=== PATIENT | female | born 1940 | race American Indian/Alaskan Native ===

== ENCOUNTER 2017-11-21 09:10 | Emergency (ER) | payer OTHER ==
--- NOTE | 2017-11-21 09:31 | EDM.PDOC ---
ED HPI GENERAL MEDICAL PROBLEM - General Chief Complaint: Chest Pain Stated Complaint: CHEST PAINS Time Seen by Provider: 11/21/17 09:31 Source of Information: Reports: Patient History Limitations: Reports: No Limitations - History of Present Illness INITIAL COMMENTS - FREE TEXT/NARRATIVE: 77-year-old female attends the ED after she made her way to the hospitalist morning for some radiology evaluations. She calls them kidney tests. Some clear what she was scheduled to have however she was supposed to arrive with a very full bladder. She's been taking a great deal water en route to the hospital. At present she has a very full bladder. Her chief complaint is central chest pain rating to to her mid back. Anus rated as 5 or 6 out of 10. It is constant. Burping and belching does not seem to relieve the discomfort. She doesn't usually have a gastroesophageal reflux disease and does not use Tums or Rolaids. She has no known history of coronary disease. She used to smoke but quit 30 years ago. She has not had a pulmonary fibrosis is on oxygen 1 L/m at nighttime and during the day if needed. Denies cough or sputum production or recent illness. No associated fever or chills. Anus appears to be spastic and is made worse by deep breathing. Of note the patient has not eaten since yesterday 1800 hrs. Onset: Today Onset Date: 11/21/17 Onset Time: 08:30 Duration: Minutes: Location: Reports: Chest (Central chest starting in the pit of her stomach and rating up into the chest to the manubrial sternal notch and similarly in her mid back. This suggests possibility of esophageal pain. However burping and belching is not relieving the discomfort. She states the pain is constant but has to have a strong sharp stabbing component at times as well.) Quality: Reports: Ache, Sharp, Stabbing Severity: Moderate Improves with: Reports: None (5 or 6 out of 10.) Worsens with: Reports: None Context: Reports: Other (Came on spontaneously when she reached the hospital this morning and was registering for). Denies: Activity, Exercise, Lifting, Sick Contact, Trauma Associated Symptoms: Reports: No Other Symptoms ( radiology examination.), Chest Pain. Denies: Confusion, Cough, cough w sputum, Diaphoresis, Fever/Chills , Headaches, Loss of Appetite, Malaise (See history of present illness), Nausea/ Vomiting, Rash, Seizure, Shortness of Breath, Syncope Treatments [employer]FORMAT[employer] SPECIALIST: Reports: Other (see below) Chest Pain Score (Numeric/FACES): 10 - Related Data Allergies Allergy/AdvReac Type Severity Reaction Status Date / Time codeine Allergy Rash Verified 11/21/17 10:10 NSAIDS (Non-Steroidal Allergy Rash Verified 11/21/17 10:10 Anti-Inflamma Home Meds: Home Meds Acetaminophen [Tylenol Extra Strength] 500 mg PO Q6HR PRN 11/21/17 [History] Albuterol [Ventolin HFA] 8 gm IH ASDIRECTED PRN 11/21/17 [History] Carvedilol 3.125 mg PO BID 11/21/17 [History] Cholecalciferol (Vitamin D3) [Vitamin D] 2 tab PO DAILY 11/21/17 [History] Fish Oil/[place]-3 Fatty Acids [Fish Oil] 500 mg PO DAILY 11/21/17 [History] Losartan [Cozaar] 100 mg PO DAILY 11/21/17 [History] Sildenafil Citrate [Sildenafil] 20 mg PO TID 11/21/17 [History] Tolterodine [Detrol LA 24 Hr] 4 mg PO DAILY 11/21/17 [History] Past Medical History Respiratory History: Reports: Pulmonary Fibrosis (Uses oxygen 1 L/m at nighttime and sometimes during the day as needed.) Social & Family History - Living Situation & Occupation Living situation: Reports: Single Occupation: Retired Social History Comment: Resides in [place]. ED [facility] GENERAL - Review of Systems Review Of Systems: See Below Constitutional: Reports: Fatigue, Decreased Appetite. Denies: Fever, Chills, Malaise, Weakness, Weight Loss HEENT: Reports: Glasses Respiratory: Reports: Shortness of Breath, Other (Has known pulmonary fibrosis.) . Denies: Wheezing, Pleuritic Chest Pain, Cough, Sputum, Hemoptysis Cardiovascular: Reports: Chest Pain (Central chest pain rating to his back at this time.), Blood Pressure Problem, Dyspnea on Exertion (Chronically). Denies : Claudication, Edema, Lightheadedness, Orthopnea (Has hypertension.) Endocrine: Reports: No Symptoms GI/Abdominal: Denies: Abdominal Pain, Anorexia, Black Stool, Bloody Stool, Constipation, Diarrhea, Difficulty Swallowing, Distension, Flatus, Hematemesis, Hematochezia, Melena, Stool Incontinence, Vomiting, Other : Reports: Frequency, Other (Fairly being investigated for renal problems by Dr. Rudd supervisory clerk. I believe she is probably here for examination of renal arteries.) Musculoskeletal: Reports: Back Pain (Pain in her anterior chest range through to her mid back.) Skin: Reports: No Symptoms Neurological: Reports: No Symptoms Psychiatric: Reports: No Symptoms Hematologic/Lymphatic: Reports: No Symptoms Immunologic: Reports: No Symptoms ED EXAM, GENERAL - Physical Exam Exam: See Below Exam Limited By: No Limitations General Appearance: Alert, WD/WN, Moderate Distress (She appears to be in genuine discomfort. Deep breathing seems to make the pain much worse.) Eye Exam: Bilateral Eye: Normal Inspection Throat/Mouth: Normal Inspection, Normal Lips, Normal Oropharynx Head: Atraumatic, Normocephalic Neck: Normal Inspection, Supple, Non-Tender, Full Range of Motion. No: Lymphadenopathy (L), Lymphadenopathy (R) Respiratory/Chest: No Respiratory Distress, No Accessory Muscle Use, Rales (Is coarse rales throughout both lower lobes compatible with pulmonary fibrosis however I could not rule out associated congestive heart failure.), Splinting ( Blunting respirations at times.). No: Normal Breath Sounds, Respiratory Distress Cardiovascular: Normal Peripheral Pulses, Regular Rate, Rhythm, No Edema, No Murmur GI/Abdominal: Normal Bowel Sounds, Soft, Non-Tender, No Organomegaly, Rebound, Other (Very tender in the pit of her stomach i.e. epigastrium and seems to radiate up into her chest suspicious for hiatal hernia. Urinary bladder is easily palpable in her lower abdomen is full.) Back Exam: Other Extremities: Normal Inspection (Mild kyphosis thoracic spine.), Normal Range of Motion, Non-Tender, No Pedal Edema Psychiatric: Normal Affect, Anxious Skin Exam: Dry, Intact, Normal Color, No Rash EKG INTERPRETATION EKG Date: 11/21/17 Time: 09:16 Rhythm: Other Rate (Beats/Min): 53 [place]: LAD-Left [place] Deviation (-40.) P-Wave: Present QRS: Other (Illustrates very poor R-wave progression with late transition.) ST-T: Depressed (Mild East ST segment depressio V V5 V6 and slightly in one and aVL. Associated T-wave inversion in aVL. There is a Q-wave in 3 and a near Q- wave in aVF. Consider old inferior wall myocardial infarction.) QT: Prolonged (QT is moderately prolonged at 477.) Course - Vital Signs Last Recorded V/S: Last Vital Signs Temp 36.6 C 11/21/17 09:17 Pulse 63 11/21/17 11:23 Resp 16 11/21/17 09:17 BP 196/67 H 11/21/17 11:23 Pulse Ox 92 L 11/21/17 10:09 - Orders/Labs/Meds Orders: Active Orders 24 hr Category Date Time Status EKG Documentation Completion [RC] STAT Care 11/21/17 09:39 Active Oxygen Therapy [RC] ASDIRECTED Care 11/21/17 09:56 Active URINALYSIS W/MICROSCOPIC [UA W/MICROSCOPIC] [URIN] Stat Lab 11/21/17 09:50 Ordered Esmolol/Normal Saline [Brevibloc in NS Premix] Med 11/21/17 11:45 Active 2.5 gm in 250 ml IV TITRATE Potassium Chloride [KCl 10 MEQ in Water 100 ML] 10 meq Med 11/21/17 11:49 Active Premix Bag 1 bag IV ONETIME Sodium Chloride 0.9% [Normal Saline] 1,000 ml Med 11/21/17 09:45 Active IV ASDIRECTED Sodium Chloride 0.9% [Normal Saline] 250 ml Med 11/21/17 11:00 Active IV ASDIRECTED Sodium Chloride 0.9% [Saline Flush] Med 11/21/17 10:58 Active 10 ml FLUSH ONETIME PRN Medication Orders Sodium Chloride (Normal Saline) 1,000 mls @ 75 mls/hr IV ASDIRECTED PAOLO Last Admin: 11/21/17 10:00 Dose: 75 mls/hr Sodium Chloride (Normal Saline) 250 mls @ 80 mls/hr IV ASDIRECTED PAOLO Last Admin: 11/21/17 11:12 Dose: 80 mls/hr Esmolol HCl (Brevibloc In Ns Premix) 2.5 gm in 250 mls @ 22.045 mls/hr IV TITRATE PAOLO; Protocol Stop: 11/21/17 19:46 Potassium Chloride 10 meq/ (Premix) 100 mls @ 100 mls/hr IV ONETIME ONE Stop: 11/21/17 12:48 Sodium Chloride (Saline Flush) 10 ml FLUSH ONETIME PRN PRN Reason: IV FLUSH Last Admin: 11/21/17 11:11 Dose: 10 ml Labs: Laboratory Tests 11/21/17 11/21/17 11/21/17 Range/Units 09:50 09:56 09:56 WBC 7.49 (3.98-10.04) K/mm3 RBC 4.38 (3.98-5.22) M/mm3 Hgb 13.3 (11.2-15.7) gm/L Hct 41.7 (34.1-44.9) % MCV 95.2 H (79.4-94.8) fl MCH 30.4 (25.6-32.2) pg MCHC 31.9 L (32.2-35.5) g/dl RDW Std Deviation 48.9 H (36.4-46.3) fL Plt Count 174 L (182-369) K/mm3 MPV 8.9 L (9.4-12.3) fl Neutrophils % (Manual) 67 H (40-60) % Band Neutrophils % 0 (0-10) % Lymphocytes % (Manual) 29 (20-40) % Atypical Lymphs % 0 % Monocytes % (Manual) 1 L (2-10) % Eosinophils % (Manual) 3 (0.7-5.8) % Basophils % (Manual) 0 L (0.1-1.2) Platelet Estimate Adequate RBC Morph Comment Normal Sodium 141 (136-145) mEq/L Potassium 3.2 L (3.5-5.1) mEq/L Chloride 106 (98-107) mEq/L Carbon Dioxide 26 (21-32) mEq/L Anion Gap 12.2 (5-15) BUN 12 (7-18) mg/dL Creatinine 1.1 H (0.55-1.02) mg/dL Est Cr Clr Drug Dosing TNP Estimated GFR (MDRD) 48 (>60) mL/min BUN/Creatinine Ratio 10.9 L (14-18) Glucose 122 H (83-115) mg/dL Calcium 9.1 (8.5-10.1) mg/dL Total Bilirubin 0.6 (0.2-1.0) mg/dL AST 19 (15-37) U/L ALT 17 (14-59) U/L Alkaline Phosphatase 89 (46-116) U/L CK-MB (CK-2) 0.8 (0-3.6) ng/ml Troponin I < 0.017 (0.00-0.056) ng/mL C-Reactive Protein 0.5 (<1.0) mg/dL NT-Pro-B Natriuret Pep (0-450) pg/mL Total Protein 7.6 (6.4-8.2) g/dl Albumin 3.6 (3.4-5.0) g/dl Globulin 4.0 gm/dL Albumin/Globulin Ratio 0.9 L (1-2) Urine Color Yellow (Yellow) Urine Appearance Clear (Clear) Urine pH 7.0 (5.0-8.0) Ur Specific [place] 1.015 (1.005-1.030) Urine Protein 1+ H (Negative) Urine Glucose (UA) Negative (Negative) Urine Ketones Negative (Negative) Urine Occult Blood Negative (Negative) Urine Nitrite Negative (Negative) Urine Bilirubin Negative (Negative) Urine Urobilinogen 0.2 (0.2-1.0) Ur Leukocyte Esterase Negative (Negative) Urine RBC Not seen (0-5) /hpf Urine WBC 0-5 (0-5) /hpf Ur Epithelial Cells 0-5 (0-5) /hpf Urine Bacteria Few (FEW) /hpf Urine Mucus Not seen (FEW) /hpf 11/21/17 Range/Units 09:56 WBC (3.98-10.04) K/mm3 RBC (3.98-5.22) M/mm3 Hgb (11.2-15.7) gm/L Hct (34.1-44.9) % MCV (79.4-94.8) fl MCH (25.6-32.2) pg MCHC (32.2-35.5) g/dl RDW Std Deviation (36.4-46.3) fL Plt Count (182-369) K/mm3 MPV (9.4-12.3) fl Neutrophils % (Manual) (40-60) % Band Neutrophils % (0-10) % Lymphocytes % (Manual) (20-40) % Atypical Lymphs % % Monocytes % (Manual) (2-10) % Eosinophils % (Manual) (0.7-5.8) % Basophils % (Manual) (0.1-1.2) Platelet Estimate RBC Morph Comment Sodium (136-145) mEq/L Potassium (3.5-5.1) mEq/L Chloride (98-107) mEq/L Carbon Dioxide (21-32) mEq/L Anion Gap (5-15) BUN (7-18) mg/dL Creatinine (0.55-1.02) mg/dL Est Cr Clr Drug Dosing Estimated GFR (MDRD) (>60) mL/min BUN/Creatinine Ratio (14-18) Glucose (83-115) mg/dL Calcium (8.5-10.1) mg/dL Total Bilirubin (0.2-1.0) mg/dL AST (15-37) U/L ALT (14-59) U/L Alkaline Phosphatase (46-116) U/L CK-MB (CK-2) (0-3.6) ng/ml Troponin I (0.00-0.056) ng/mL C-Reactive Protein (<1.0) mg/dL NT-Pro-B Natriuret Pep 374 (0-450) pg/mL Total Protein (6.4-8.2) g/dl Albumin (3.4-5.0) g/dl Globulin gm/dL Albumin/Globulin Ratio (1-2) Urine Color (Yellow) Urine Appearance (Clear) Urine pH (5.0-8.0) Ur Specific [place] (1.005-1.030) Urine Protein (Negative) Urine Glucose (UA) (Negative) Urine Ketones (Negative) Urine Occult Blood (Negative) Urine Nitrite (Negative) Urine Bilirubin (Negative) Urine Urobilinogen (0.2-1.0) Ur Leukocyte Esterase (Negative) Urine RBC (0-5) /hpf Urine WBC (0-5) /hpf Ur Epithelial Cells (0-5) /hpf Urine Bacteria (FEW) /hpf Urine Mucus (FEW) /hpf Meds: Medications Generic Name Dose Route Start Last Admin Trade Name Freq PRN Reason Stop Dose Admin Sodium Chloride 1,000 mls @ 75 mls/hr 11/21/17 09:45 11/21/17 10:00 Normal Saline IV 75 mls/hr ASDIRECTED PAOLO Administration Sodium Chloride 250 mls @ 80 mls/hr 11/21/17 11:00 11/21/17 11:12 Normal Saline IV 80 mls/hr ASDIRECTED PAOLO Administration Esmolol HCl 2.5 gm in 250 mls @ 22.045 mls/hr 11/21/17 11:45 Brevibloc In Ns Premix IV 11/21/17 19:46 TITRATE PAOLO Protocol 50 MCG/KG/MIN Potassium Chloride 10 meq/ 100 mls @ 100 mls/hr 11/21/17 11:49 Premix IV 11/21/17 12:48 ONETIME ONE Sodium Chloride 10 ml 11/21/17 10:58 11/21/17 11:11 Saline Flush FLUSH 10 ml ONETIME PRN Administration IV FLUSH Discontinued Medications Generic Name Dose Route Start Last Admin Trade Name Freq PRN Reason Stop Dose Admin Aspirin 324 mg 11/21/17 09:42 11/21/17 10:03 Aspirin PO 11/21/17 09:43 324 mg ONETIME ONE Administration Fentanyl 25 mcg 11/21/17 09:43 11/21/17 10:02 Sublimaze IVPUSH 11/21/17 09:44 25 mcg ONETIME ONE Administration Hydromorphone HCl 0.5 mg 11/21/17 11:18 11/21/17 11:23 Dilaudid IVPUSH 11/21/17 11:19 0.5 mg ONETIME ONE Administration Nitroglycerin/Dextrose 25 mg in 250 mls @ 6 mls/hr 11/21/17 09:45 11/21/17 10 :05 Nitroglycerin 25 Mg/D5w 250 Ml IV 10 mcg/min ASDIRECTED PAOLO 6 mls/hr Administration 10 MCG/MIN Esmolol HCl Confirm 11/21/17 11:38 Brevibloc In Ns Premix Administered 11/21/17 11:39 Dose 2.5 gm in 250 mls @ as directed .ROUTE .STK-MED ONE Iopamidol 100 ml 11/21/17 10:53 11/21/17 11:11 Isovue-370 (76%) IVPUSH 11/21/17 10:54 100 ml ONETIME ONE Administration Labetalol HCl 20 mg 11/21/17 11:18 11/21/17 11:23 Normodyne IVPUSH 11/21/17 11:19 20 mg ONETIME ONE Administration Protocol Ondansetron HCl 4 mg 11/21/17 09:43 11/21/17 10:00 Zofran IVPUSH 11/21/17 09:44 4 mg ONETIME ONE Administration - Radiology Interpretation Free Text/Narrative:: 77-year-old female presents to the ED for assessment of central chest pain that started upon arrival to the hospital. She is scheduled for an outpatient renal test in the x-ray department I suspect renal ultrasound. She's been drinking excessive amounts of water to try and fill her bladder en route to the hospital. Her pain is made worse by deep breathing. It seems to be worse on from compression in the epigastrium goes up into the chest suspicious for hiatal hernia. However ECG is abnormal with mild ST segment depression in V5 V6 and lead 1 and aVL. Cannot rule out apical ischemia. Emanation reveals coarse crackles throughout both lung matthew compatible with pulmonary fibrosis but I cannot rule out underlying congestive failure as well. Patient states she's been told she has heart failure in the past. Usually uses oxygen 1 L/m at nighttime. Sometimes during the day. Sats here so far are are staying 92-93%. Plan he'll she will be placed on oxygen 1 L/m at this time. Routine labs including cardiac markers and BNP will be ordered. IV will be 75 mils an hour normal saline. She will be started on nitroglycerin drip at 5 mcg/m. Current BP is 122/38. She'll be given aspirin 324 mg chewed. We'll give fentanyl 25 g IV and Zofran 4 mg IV for pain relief. Of course chest x-ray to be done. - Re-Assessments/Exams Free Text/Narrative Re-Assessment/Exam: 11/21/17 10:27 Portal chest x-ray reveals heart to be essentially normal in size. There is extensive atherosclerotic location seen within the thoracic aorta there appears to be aortic wall thickening surrounding this atherosclerotic change uncertain if findings are due to prominent atherosclerotic changes or represents early dissection. Minimal atelectasis or scarring is seen within the right midlung. There is a diffuse date vascular congestion pattern. The lungs in the inferior lobes appear to show mild fibrosis. He will proceed with a contrast-enhanced CT aortogram to rule out dissection. 11/21/17 11:48 Labs reveal a white count of 7.49 with 67% neutrophils and no bands reported. Hemoglobin is 13.3 with hematocrit of 41.7. MCV is slightly elevated at 95.2. Platelet count is 174,000. Sodium is 141 potassium slightly low at 3.2. Chloride is 106 with a bicarbonate of 26. And a gap is 12.2. BUN is 12. Creatinine is 1.1. Estimated GFR is 48. Glucose is 122. Calcium is 9.1. Liver function normal. Troponin I is less than 0.017 C-reactive protein is 0.5. CK-MB fraction 0.8. Urinalysis is normal. 11/21/17 11:25: Spoke with Dr. Maldonado cardiovascular surgeon at [facility] in [place] and he has accepted care through the ED. Therefore also spoke with Dr. Felix ED physician to let her know of her status. has a type A aortic dissection from the root of the aorta or aortic valve down past the diaphragm. She'll be started on a small drip at 50 yamini grams per kilogram per minute with titration every 4-5 minutes to achieve a systolic blood pressure of 110-1 20/m. nitroglycerin drip will be stopped. 0 Departure - Departure Time of Disposition: 11:51 Disposition: DC/Tfer to Acute Hospital 02 Reason for Transfer *Q: Other Condition: Critical Clinical Impression: Aortic arch dissection Referrals: Jessenia De La O NP [Primary Care Provider] - Forms: ED Department Discharge Additional Instructions: Transferred to [facility] per helicopter service under the care of cardio vascular surgeon Dr. Maldonado. Dr. Felix from the ED has accepted care. - My Orders Last 24 Hours: My Active Orders 11/21/17 09:39 EKG Documentation Completion [RC] STAT 11/21/17 09:45 Sodium Chloride 0.9% [Normal Saline] 1,000 ml IV ASDIRECTED 11/21/17 09:50 URINALYSIS W/MICROSCOPIC [UA W/MICROSCOPIC] [URIN] Stat 11/21/17 09:56 Oxygen Therapy [RC] ASDIRECTED 11/21/17 10:58 Sodium Chloride 0.9% [Saline Flush] 10 ml FLUSH ONETIME PRN 11/21/17 11:00 Sodium Chloride 0.9% [Normal Saline] 250 ml IV ASDIRECTED 11/21/17 11:45 Esmolol/Normal Saline [Brevibloc in NS Premix] 2.5 gm in 250 ml IV TITRATE 11/21/17 11:49 Potassium Chloride [KCl 10 MEQ in Water 100 ML] 10 meq Premix Bag 1 bag IV ONETIME - Assessment/Plan Last 24 Hours: My Active Orders 11/21/17 09:39 EKG Documentation Completion [RC] STAT 11/21/17 09:45 Sodium Chloride 0.9% [Normal Saline] 1,000 ml IV ASDIRECTED 11/21/17 09:50 URINALYSIS W/MICROSCOPIC [UA W/MICROSCOPIC] [URIN] Stat 11/21/17 09:56 Oxygen Therapy [RC] ASDIRECTED 11/21/17 10:58 Sodium Chloride 0.9% [Saline Flush] 10 ml FLUSH ONETIME PRN 11/21/17 11:00 Sodium Chloride 0.9% [Normal Saline] 250 ml IV ASDIRECTED 11/21/17 11:45 Esmolol/Normal Saline [Brevibloc in NS Premix] 2.5 gm in 250 ml IV TITRATE 11/21/17 11:49 Potassium Chloride [KCl 10 MEQ in Water 100 ML] 10 meq Premix Bag 1 bag IV ONETIME
[2017-11-21] MEDS ORDERED: Aspirin 81 MG Tab.Chew PO ONE (09:42)
[2017-11-21] MEDS ORDERED: Ondansetron 4 MG/2 ML SDV IVPUSH ONE (09:43)
[2017-11-21] MEDS ORDERED: fentaNYL 100 MCG/2 ML SDV IVPUSH ONE (09:43)
[2017-11-21] MEDS ORDERED: Sodium Chloride 0.9% 1,000 ML IV SCH (09:45)
[2017-11-21] MEDS ORDERED: Nitroglycerin/D5W 25 MG/250 ML BOTTLE IV SCH (09:45)
--- NOTE | 2017-11-21 10:04 | CR ---
Chest: Portable view of the chest is obtained. Comparison: No prior chest x-ray. Heart size appears within normal limits for portable technique. Atherosclerotic calcification is seen within the thoracic aorta. There appears to be aortic wall thickening surrounding this atherosclerotic change. Uncertain if findings are due to prominent atherosclerotic change or represents dissection. Minimal atelectasis or scarring is seen within the right midlung. Lungs otherwise are clear. Bony structures are grossly intact. Impression: 1. Slightly abnormal appearance of the thoracic aorta. If patient's clinical symptoms suggest aortic dissection, contrast enhanced CT aortogram could be obtained. 2. Minimal atelectasis or scarring within the right midlung. Diagnostic code #3
[2017-11-21] MEDS ORDERED: Iopamidol 755 Mg/ML 100 ML Bottle IVPUSH ONE (10:53)
[2017-11-21] MEDS ORDERED: Sodium Chloride 0.9% 10 ML Syringe FLUSH PRN (10:58)
[2017-11-21] MEDS ORDERED: Sodium Chloride 0.9% 250 ML IV SCH (11:00)
[2017-11-21] MEDS ORDERED: Labetalol 100 MG/20 ML MDV IVPUSH ONE (11:18)
[2017-11-21] MEDS ORDERED: HYDROmorphone 0.5 MG/0.5 ML SYRINGE IVPUSH ONE (11:18)
[2017-11-21] MEDS ORDERED: Esmolol/Normal Saline 2.5 GM/250 ML BAG ONE (11:38)
--- NOTE | 2017-11-21 11:43 | CT ---
CT chest Technique: Multiple axial sections were obtained from above the lung apices inferiorly through the lung bases. Intravenous contrast was utilized. Findings: There is some contrast being seen outside the main lumen of the aorta within the descending aorta which is suspicious for small dissection. Atherosclerotic plaque is also noted within the aorta. Some of the wall thickening may also relate to chronic dissection with clot involving the aortic arch and descending aorta. Aorta shows no aneurysmal dilatation. Mild atherosclerotic change is seen within the coronary arteries. No pulmonary embolism is seen. Heart is slightly enlarged. Intrahepatic and extrahepatic biliary air is noted. Cystic area is noted within the right lobe of liver containing wall calcifications. This finding measures approximately 1.8 cm. Scoliosis and degenerative change is noted within the spine. Lung window settings shows slight pleural thickening with calcification within the right chest. Lung markings mildly increased within both lung bases most likely representing fibrosis and mild bronchiectasis. Impression: 1. Wall thickening within the aorta involving the transverse and descending portions which is felt to represent combination of atherosclerotic change and chronic dissection with thrombosis. There is some contrast being seen around portions of the descending aorta compatible with small acute area of dissection. 2. Atherosclerotic change within the coronary arteries is seen. 3. Intrahepatic and extra hepatic biliary air, please correlate if patient has had previous surgery or intervention of the sphincter of [place]. 4. Other incidental findings as noted above. Diagnostic code #5
[2017-11-21] MEDS ORDERED: Esmolol/Normal Saline 2.5 GM/250 ML BAG IV SCH (11:45)
[2017-11-21] MEDS ORDERED: Potassium Chloride 10 MEQ in Premix Bag 1 BAG IV ONE (11:49)
== END 2017-11-21 12:17 ==
LOC: JD.ED 09:10
DX: I71.01 Dissection of thoracic aorta (principal); Z88.5 Allergy status to narcotic agent; Z88.6 Allergy status to analgesic agent; Z79.899 Other long term (current) drug therapy
CPT/HCPCS: 36415; 71045; 71275; 80053; 81001; 82553; 83880; 84484; 85025; 86140; 93005; 96361; 96365; 96367; 96375; 99285; A9270; J1170; J2405; J3010; J3480; J7040; J7050; Q9967; 93010

== ENCOUNTER 2019-01-04 21:46 | Emergency (ER) | payer MEDICARE, OTHER ==
[2019-01-04] MEDS ORDERED: Aluminum Hydroxide/Magnesium Hydroxide/Simethicone Susp 30 ML Cup PO ONE (22:28)
--- NOTE | 2019-01-04 22:32 | EDM.PDOC ---
ED HPI GENERAL MEDICAL PROBLEM - General Chief Complaint: Respiratory Problem Stated Complaint: [facility] Time Seen by Provider: 01/04/19 22:06 Source of Information: Reports: Patient, Family (Son, granddaughter), RN Notes Reviewed History Limitations: Reports: No Limitations - History of Present Illness INITIAL COMMENTS - FREE TEXT/NARRATIVE: The patient states that she ate some toast and drink some Gatorade, then took 4 of her evening pills around 20:00 with a sip of Gatorade. She states that it felt like the pills got stuck in her throat, that she felt like she has some difficulty breathing. She called her son, who came over, and attempted to perform a Heimlich maneuver on the patient. She states that she is uninjured from his attempts. The patient states that she has not had prior problems swallowing pills, however , she has a history of dysphagia, with difficulty swallowing dry foods, such as chicken breast. Here in the ED, the patient states that she still has a mild burning sensation in the back of her throat. The patient's PCP is Jessenia De La O NP. Her Insulator Helper is Dr.Monica Cheek. Her Umbrella Tipper Machine is at [facility]. Her ENT is at [facility]. - Related Data Allergies Allergy/AdvReac Type Severity Reaction Status Date / Time codeine Allergy Rash Verified 01/04/19 21:50 NSAIDS (Non-Steroidal Allergy Rash Verified 01/04/19 21:50 Anti-Inflamma Sulfa (Sulfonamide Allergy Rash Verified 01/04/19 21:51 Antibiotics) Home Meds: Home Meds Acetaminophen [Tylenol Extra Strength] 500 mg PO Q6HR PRN 11/21/17 [History] Albuterol [Ventolin HFA] 8 gm IH ASDIRECTED PRN 11/21/17 [History] Carvedilol 3.125 mg PO BID 11/21/17 [History] Cholecalciferol (Vitamin D3) [Vitamin D] 2 tab PO DAILY 11/21/17 [History] Fish Oil/[place]-3 Fatty Acids [Fish Oil] 500 mg PO DAILY 11/21/17 [History] Losartan [Cozaar] 100 mg PO DAILY 11/21/17 [History] Sildenafil Citrate [Sildenafil] 20 mg PO TID 11/21/17 [History] Tolterodine [Detrol LA 24 Hr] 4 mg PO DAILY 11/21/17 [History] Past Medical History HEENT History: Reports: Impaired Vision Other HEENT History: Wears glasses Cardiovascular History: Reports: Aneurysm (AAA. 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: Musculoskeletal History: Reports: Osteoarthritis Endocrine/Metabolic History: Reports: Diabetes, Type II (resolved), Hypothyroidism - Past Surgical History HEENT Surgical History: Reports: Cataract Surgery (bilateral), Naso-Sinus Surgery, Oral Surgery (wisdom teeth extraction), Polypectomy (nasal) Cardiovascular Surgical History: Reports: Aneurysm (AAA graft) GI Surgical History: Reports: Cholecystectomy, Hernia, Abdominal Female Surgical History: Reports: Hysterectomy (partial) Social & Family History - Tobacco Use Smoking Status *Q: Never Smoker - Alcohol Use Alcohol Use History: No - Recreational Drug Use Recreational Drug Use: No - Living Situation & Occupation Living situation: Reports: , Alone Occupation: Retired ED ROS GENERAL - Review of Systems Review Of Systems: ROS reveals no pertinent complaints other than HPI. ED EXAM, GENERAL - Physical Exam Exam: See Below Exam Limited By: No Limitations General Appearance: Alert, WD/WN, No Apparent Distress Eye Exam: Bilateral Eye: EOMI, Normal Inspection Ears: Normal External Exam, Hearing Loss Nose: Normal Inspection Throat/Mouth: Normal Inspection, Normal Lips, Normal Teeth, Normal Gums, Normal Oropharynx, Normal Voice, No Airway Compromise Head: Atraumatic, Normocephalic Neck: Normal Inspection, Full Range of Motion. No: Lymphadenopathy (L), Lymphadenopathy (R) Respiratory/Chest: No Respiratory Distress, Lungs Clear, Normal Breath Sounds, No Accessory Muscle Use Cardiovascular: Normal Peripheral Pulses, Regular Rate, Rhythm, No Gallop, No JVD, No Murmur, No Rub Peripheral Pulses: 4+: Radial (L), Radial (R) GI/Abdominal: Normal Bowel Sounds, Soft, Non-Tender, No Organomegaly, No Distention, No Abnormal Bruit, No Mass (Female) Exam: Deferred Rectal (Female) Exam: Deferred Back Exam: Normal Inspection, Full Range of Motion, NT Extremities: Normal Inspection, Normal Range of Motion, No Pedal Edema, Normal Capillary Refill Neurological: Alert, Oriented, Normal Cognition, No Motor/Sensory Deficits Psychiatric: Normal Affect Skin Exam: Warm, Dry, Intact, Normal Color, No Rash Course - Vital Signs Last Recorded V/S: Last Vital Signs Temp 37.1 C 01/04/19 21:48 Pulse 78 01/04/19 21:48 Resp 18 01/04/19 21:48 BP 103/45 L 01/04/19 21:48 Pulse Ox 95 01/04/19 21:48 - Orders/Labs/Meds Meds: Medications Discontinued Medications Generic Name Dose Route Start Last Admin Trade Name Guanaco PRN Reason Stop Dose Admin Al Hydroxide/Mg Hydroxide 30 ml 01/04/19 22:28 01/04/19 22:34 Mag-Al Plus PO 01/04/19 22:29 30 ml ONETIME ONE Administration - Re-Assessments/Exams Free Text/Narrative Re-Assessment/Exam: 01/04/19 22:28 The patient's history is most consistent with her having suffered from pill esophagitis earlier tonight, not an actual choking episode or aspiration. The patient still has a bit of a sore throat, therefore I have ordered some Maalox. She will likely feel much better by the morning. Departure - Departure Time of Disposition: 22:29 Disposition: Home, Self-Care 01 Condition: Good Clinical Impression: Pill esophagitis - Discharge Information *PRESCRIPTION DRUG MONITORING PROGRAM REVIEWED*: Not Applicable *COPY OF PRESCRIPTION DRUG MONITORING REPORT IN PATIENT APRIL: Not Applicable Instructions: Esophagitis Referrals: Jessenia De La O NP [Ordering Only Provider] - Felipa Cheek MD [Ordering Only Provider] - Forms: ED Department Discharge Additional Instructions: You were seen in the emergency room after one or more pills got stuck in your throat when you were taking them tonight, causing a choking-like episode and leaving you with a sore throat. Based on your history and physical examination, you are suffering from pill esophagitis, a condition caused by a pill partially dissolving on your esophagus , causing some irritation. You were treated with Maalox in the ER. If your symptoms persist, you may continue to take Maalox or Gaviscon. In most cases, the symptoms resolve within 24 hours. Be very careful when taking your pills, that you take them with an adequate amount of fluid, and do your best to get the pills down on the first try. If any other problems, please do not hesitate to return to the ER.
== END 2019-01-04 22:46 | disposition home or self-care (01) ==
LOC: JD.ED 21:46
DX: K20.8 Other esophagitis (principal); Z79.899 Other long term (current) drug therapy; Z88.2 Allergy status to sulfonamides
CPT/HCPCS: 99283; A9270

== ENCOUNTER 2020-01-10 22:50 | Emergency (ER) | payer MEDICARE, OTHER ==
--- NOTE | 2020-01-10 23:23 | EDM.PDOC ---
ED HPI GENERAL MEDICAL PROBLEM - General Chief Complaint: ENT Problem Stated Complaint: SWALLOWED TOOTHPICK Time Seen by Provider: 01/10/20 23:03 Source of Information: Reports: Patient, Family History Limitations: Reports: No Limitations - History of Present Illness INITIAL COMMENTS - FREE TEXT/NARRATIVE: Is an 79-year-old female. Around 3 PM today she was picking her teeth with a plastic toothpick and she was lying down and she apparently dozed off to sleep and when she awoke with a start she felt like she swallowed her plastic toothpick. She looked around on the pillow and around where she was sleeping and did not find a plastic toothpick so she thinks she swallowed it. Around 6 PM this evening she had a hot dog and half of a sweet roll that seem to go down with no difficulty. She says she feels like there might be something in her back of her throat but she does not have any stomach pain or sharp chest pain. She finally told her son around 9 PM that she had done this and they go to [facility] but were turned away and told to not order to come here. So they came here. - Related Data Allergies Allergy/AdvReac Type Severity Reaction Status Date / Time codeine Allergy Rash Verified 01/10/20 23:02 NSAIDS (Non-Steroidal Allergy Rash Verified 01/10/20 23:02 Anti-Inflamma Sulfa (Sulfonamide Allergy Rash Verified 01/10/20 23:02 Antibiotics) Home Meds: Home Meds Acetaminophen [Tylenol Extra Strength] 500 mg PO Q6HR PRN 11/21/17 [History] Albuterol [Ventolin HFA] 8 gm IH ASDIRECTED PRN 11/21/17 [History] Cholecalciferol (Vitamin D3) [Vitamin D] 2 tab PO DAILY 11/21/17 [History] Fish Oil/[place]-3 Fatty Acids [Fish Oil] 500 mg PO DAILY 11/21/17 [History] Losartan [Cozaar] 100 mg PO DAILY 11/21/17 [History] Sildenafil Citrate [Sildenafil] 20 mg PO TID 11/21/17 [History] Tolterodine [Detrol LA 24 Hr] 4 mg PO DAILY 11/21/17 [History] carvediloL [Carvedilol] 3.125 mg PO BID 11/21/17 [History] Past Medical History HEENT History: Reports: Impaired Vision Other HEENT History: Wears glasses Cardiovascular History: Reports: Aneurysm, Heart Failure, High Cholesterol, Hypertension Respiratory History: Reports: Pulmonary Fibrosis Other Respiratory History: Hypoxia Gastrointestinal History: Reports: Diverticulosis, GERD, Other (See Below) Genitourinary History: Reports: Urinary Incontinence 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: Musculoskeletal History: Reports: Osteoarthritis Endocrine/Metabolic History: Reports: Diabetes, Type II, Hypothyroidism - Past Surgical History HEENT Surgical History: Reports: Cataract Surgery, Naso-Sinus Surgery, Oral Surgery, Polypectomy Cardiovascular Surgical History: Reports: Aneurysm GI Surgical History: Reports: Cholecystectomy, Hernia, Abdominal Female Surgical History: Reports: Hysterectomy Social & Family History - Tobacco Use Smoking Status *Q: Never Smoker - Recreational Drug Use Recreational Drug Use: No - Living Situation & Occupation Living situation: Reports: , Alone Occupation: Retired ED ROS ENT - Review of Systems Review Of Systems: See Below Constitutional: Reports: No Symptoms HEENT: Reports: Other (As per HPI) Respiratory: Reports: No Symptoms Cardiovascular: Reports: No Symptoms Endocrine: Reports: No Symptoms GI/Abdominal: Denies: Abdominal Pain : Reports: No Symptoms Musculoskeletal: Reports: No Symptoms Skin: Reports: No Symptoms Neurological: Reports: No Symptoms Psychiatric: Reports: No Symptoms Hematologic/Lymphatic: Reports: No Symptoms ED EXAM, ENT - Physical Exam Exam: See Below Exam Limited By: No Limitations General Appearance: Alert, WD/WN, No Apparent Distress Eye Exam: Bilateral Eye: Normal Inspection Ears: Normal External Exam Nose: Normal Inspection Mouth/Throat: Normal Inspection, Normal Oropharynx, Other (No foreign body seen in the back of the oropharynx or as far down as I can see posterior tongue. No blood noted.) Head: Normocephalic Neck: Supple Respiratory/Chest: No Respiratory Distress, Lungs Clear, Normal Breath Sounds Cardiovascular: Regular Rate, Rhythm, Systolic Murmur, Other (There is the click of an artificial aortic valve noted) GI/Abdominal: Soft, Other (Has tenderness over the right side where she had surgery but this is not unusual and there is no new tenderness or sharp pain noted on palpation of her 4 quadrants) Back: Decreased Range of Motion Extremities: Normal Inspection Neurological: Alert, Oriented Psychiatric: Normal Affect, Normal Mood Skin: Warm, Dry Course - Vital Signs Last Recorded V/S: Last Vital Signs Temp 97.3 F 06/20/20 23:00 Pulse 73 01/10/20 23:00 Resp 16 01/10/20 23:00 BP 145/71 H 01/10/20 23:00 Pulse Ox 93 L 01/10/20 23:00 - Orders/Labs/Meds Orders: Active Orders 24 hr Category Date Time Status CXR [Chest 1V Frontal] [CR] Stat Exams 01/10/20 23:15 Taken - Radiology Interpretation Free Text/Narrative:: X-ray if you change the window level will show up the plastic toothpick but the chest x-ray itself questionable whether just below the sternal notch not absolutely certain. - Re-Assessments/Exams Free Text/Narrative Re-Assessment/Exam: 01/11/20 00:24 To the family regarding needing to be scoped and they would have to go down to [place] to [place] is what they have chosen for the GI doctor to scope her and find this toothpick. She does not need to go by ambulance or go by private car and it was stressed she cannot eat or drink anything until after the procedure. 01/11/20 00:46 I let [place] [facility] know that we did not do a rapid COVID test on her and that they would need to do that when she got down to [facility] ER. Departure - Departure Time of Disposition: 00:25 Disposition: Home, Self-Care 01 Condition: Good Clinical Impression: Swallowed foreign body Qualifiers: Encounter type: initial encounter Qualified Code(s): T18.9XXA - Foreign body of alimentary tract, part unspecified, initial encounter - Discharge Information *PRESCRIPTION DRUG MONITORING PROGRAM REVIEWED*: Not Applicable *COPY OF PRESCRIPTION DRUG MONITORING REPORT IN PATIENT APRIL: Not Applicable Instructions: Swallowed Foreign Body, Adult, [id number] Referrals: PCP,None [Primary Care Provider] - Forms: ED Department Discharge Additional Instructions: You are to go directly from this ER to [place] emergency room with the paperwork. Do not eat or drink anything until after the procedure by Dr. Keys. Dr. Keys believes that you will be able to go home after he scopes you and gets the toothpick. Sepsis Event Note (ED) - Evaluation Sepsis Screening Result: No Definite Risk - Focused Exam Vital Signs: Vital Signs Temp Pulse Resp BP Pulse Ox 01/10/20 23:00 97.3 F 73 16 145/71 H 93 L ED Communication - ED Communication Date/Time Date: 01/11/20 Time Called: 00:20 - Discussed Case With (1) Discussed Case With (1): Outpatient Provider Person/s Notified (1): Dr. Arreola (He agrees to see the patient for scoping and removal of the toothpick) - My Orders Last 24 Hours: My Active Orders 01/10/20 23:15 CXR [Chest 1V Frontal] [CR] Stat - Assessment/Plan Last 24 Hours: My Active Orders 01/10/20 23:15 CXR [Chest 1V Frontal] [CR] Stat
--- NOTE | 2020-01-11 11:29 | CR ---
Chest: Frontal view of the chest was obtained. Comparison: Prior chest x-ray of 11/21/17. Stent is noted within the descending aorta. This is an interval change from previous exam. Lung markings are mildly increased which appear chronic. Elevated right hemidiaphragm is seen which is chronic. Heart size at the upper limits of normal. Mild scoliosis is noted within the spine with scattered degenerative change also noted within the spine. Impression: 1. Stent within the descending aorta. 2. Other findings as described above believed to be chronic. 3. Nothing acute is definitely appreciated. No radiopaque foreign object is appreciated. Diagnostic code #2 This report was dictated in MDT
== END 2020-01-11 00:51 | disposition home or self-care (01) ==
LOC: JD.ED 22:50
DX: T18.9XXA Foreign body of alimentary tract, part unspecified, initial encounter (principal); I11.0 Hypertensive heart disease with heart failure; I50.9 Heart failure, unspecified; E11.9 Type 2 diabetes mellitus without complications; Z88.5 Allergy status to narcotic agent; Z88.2 Allergy status to sulfonamides; Z88.6 Allergy status to analgesic agent; Z79.899 Other long term (current) drug therapy
CPT/HCPCS: 71045; 71045-26; 99283; 99284

== ENCOUNTER 2020-04-27 04:51 | Emergency (ER) | payer MEDICARE, OTHER ==
--- NOTE | 2020-04-27 05:36 | EDM.PDOC ---
<Dejon Larry - Last Filed: 04/27/20 09:41> ED HPI GENERAL MEDICAL PROBLEM - General Chief Complaint: Fever Stated Complaint: [facility] Time Seen by Provider: 04/27/20 05:26 - Related Data Allergies Allergy/AdvReac Type Severity Reaction Status Date / Time codeine Allergy Rash Verified 04/27/20 04:57 NSAIDS (Non-Steroidal Allergy Rash Verified 04/27/20 04:57 Anti-Inflamma Sulfa (Sulfonamide Allergy Rash Verified 04/27/20 04:57 Antibiotics) Home Meds: Home Meds Acetaminophen [Tylenol Extra Strength] 500 mg PO Q6HR PRN 11/21/17 [History] Albuterol [Ventolin HFA] 8 gm IH ASDIRECTED PRN 11/21/17 [History] Cholecalciferol (Vitamin D3) [Vitamin D] 2 tab PO DAILY 11/21/17 [History] Fish Oil/[place]-3 Fatty Acids [Fish Oil] 500 mg PO DAILY 11/21/17 [History] Losartan [Cozaar] 100 mg PO DAILY 11/21/17 [History] Sildenafil Citrate [Sildenafil] 20 mg PO TID 11/21/17 [History] Tolterodine [Detrol LA 24 Hr] 4 mg PO DAILY 11/21/17 [History] carvediloL [Carvedilol] 3.125 mg PO BID 11/21/17 [History] Course - Re-Assessments/Exams Free Text/Narrative Re-Assessment/Exam: 04/27/20 09:[address] Bruno. Her chest CT shows no central pulmonary embolism. Cannot exclude segmental or subsegmental emboli due to technical factors. Chronic interstitial lung disease. Bronchiectesis. Coronary artery disease. Her abdomen and pelvis CT shows diverticulosis without diverticulitis. Prior cholecystectomy. Intrahepatic biliary dilatation, which may be related to the post cholecystectomy state. Pneumobilia, potentially due to prior sphincterotomy. The patient tells me that over 20 years ago she had her gallbladder out and after that she had some troubles with her biliary tree and had surgery at [facility]. We do not have beds here so I called [facility] in [place] and talked with Dr Ortiz the hospitalist and he accepted the patient. I also talked wi th the GI specialist and he was concerned that the patient may have had a biliary infarction and not so much ascending cholangitis. They did accept the patient but they had no beds yet. They will call when they have an opening. Departure - Departure Time of Disposition: 10:00 Disposition: DC/Tfer to Acute Hospital 02 Clinical Impression: Shortness of breath, Pulmonary hypertension Fever Qualifiers: Fever type: due to other condition Qualified Code(s): R50.81 - Fever presenting with conditions classified elsewhere Abdominal pain Qualifiers: Abdominal location: right upper quadrant Qualified Code(s): R10.11 - Right upper quadrant pain - Discharge Information Referrals: PCP,None [Primary Care Provider] - Forms: ED Department Discharge <James Bruno - Last Filed: 04/28/20 19:13> ED HPI GENERAL MEDICAL PROBLEM - General Source of Information: Reports: Patient History Limitations: Reports: No Limitations - History of Present Illness INITIAL COMMENTS - FREE TEXT/NARRATIVE: 80-year-old female of [place] ancestry presents to the ED per [facility]. Patient explains she did not feel well most of yesterday. Shortly around midnight she started to develop significant fever chills with rigors. She could not get warm. She states she has a mild nonproductive cough. She did not eat very much yesterday as her appetite was quite poor. She denies any dysuria urgency or frequency. She states she has had problems with infection in her biliary tree on several occasions in the past. Gallbladder was removed greater than 20 years ago. She states everyone swapped that they have to go in and clean it out indicating that the duct becomes occluded. She denies any bowel movement yesterday. Certainly no diarrhea. Generalized myalgia particularly head neck back and thighs. She does have a mild low-grade headache. She is alert oriented and able to answer most questions. She did take some Tylenol yesterday for fever. She does not know if she was been exposed to COVID-19 illness. Paramedics apparently did give her a full liter of normal saline in route to [place]. Apparently her primary care practitioner is Jessenia Hernandez ,nurse practitioner-- I believe in [place] or [place]. . Onset: Sudden Onset Date: 04/26/20 Onset Time: 22:00 Duration: Hour(s):, Getting Worse Location: Reports: Generalized (Generalized body aches or myalgia. Associate with a very high fever. Associated with chills and body shakes. States she just cannot get warm. Nauseated but did not vomit. No bowel movement. No genitourinary complaints. Mild cough nonproductive) Quality: Reports: Ache (Generalized myalgia.) Severity: Moderate Improves with: Reports: None Worsens with: Reports: Movement Context: Reports: Other (Ebony is occurrence over the last 24 hours). Denies: Activity, Exercise, Lifting, Sick Contact, Trauma Associated Symptoms: Reports: Cough, Fever/Chills (Out headache that began fever and chills with rigors shortly before midnight last night.), Headaches, Loss of Appetite, Malaise (Nonproductive), Nausea/Vomiting, Weakness (Her generalized weakness. She cannot walk on her own volition.). Denies: Confusion, Chest Pain, cough w sputum, Diaphoresis, Rash, Seizure (Nausea without vomiting), Shortness of Breath, Syncope Treatments METROLOGY ENGINEER: Reports: Acetaminophen (She took a Tylenol once yesterday.) Lower Back Pain Score (Numeric/FACES): 7 Past Medical History HEENT History: Reports: Cataract (Lateral cataract extractions and intraocular lens implants.), Impaired Vision, Other (See Below) (Admits that she does have some swallowing impairment with dysphagia particularly larger food boluses will get stuck or if they are dry.) Other HEENT History: Wears glasses Cardiovascular History: Reports: Aneurysm, Heart Failure, Heart Murmur (Severe valvular heart disease involving both the aortic valve and mitral valve.), High Cholesterol, Hypertension, Other (See Below) (Patient has had a AAA repaired by endovascular grafting.) Other Cardiovascular History: Her home performance consultant is at the [facility]. Her ENT surgeon is at the [facility]. Respiratory History: Reports: Pulmonary Fibrosis (Patient wears oxygen at 1 L/min but oxygen at night and as needed), Other (See Below) (Patient is currently on sildenafil 20 mg 3 times daily indicating that she has significant right-sided heart failure due to pulmonary hypertension.) Other Respiratory History: Hypoxia her table machine operator is Dr. Felipa Cheek in [place]. Gastrointestinal History: Reports: Diverticulosis, GERD, Other (See Below) (She does have a history of history suggest possible recurrent bouts of obstructed biliary tree with need for intervention. Unclear if she has had a sending cholangitis diverticulitis as well) Genitourinary History: Reports: Urinary Incontinence, Other (See Below) (Reports that she had a partial hysterectomy. I believe this means retention of the ovaries.) CLINICAL REHABILITATION LIAISON History: Reports: Musculoskeletal History: Reports: Osteoarthritis Endocrine/Metabolic History: Reports: Diabetes, Type II, Hypothyroidism - Past Surgical History HEENT Surgical History: Reports: Cataract Surgery, Naso-Sinus Surgery, Oral Surgery, Polypectomy Cardiovascular Surgical History: Reports: Aneurysm GI Surgical History: Reports: Cholecystectomy, Hernia, Abdominal Female Surgical History: Reports: Hysterectomy Social & Family History - Tobacco Use Smoking Status *Q: Unknown Ever Smoked - Living Situation & Occupation Living situation: Reports: , Alone Occupation: Retired ED ROS GENERAL - Review of Systems Review Of Systems: See Below Constitutional: Reports: Fever, Chills, Malaise, Weakness, Fatigue, Decreased Appetite, Weight Loss HEENT: Reports: Hearing Loss (Mild). Denies: Sinus Problem, Throat Pain, Throat Swelling Respiratory: Reports: Shortness of Breath, Cough. Denies: Wheezing, Pleuritic Chest Pain, Sputum, Hemoptysis (Nonproductive) Cardiovascular: Reports: Blood Pressure Problem, Dyspnea on Exertion, Lightheadedness. Denies: Chest Pain, Claudication, Edema, Orthopnea, Palpitations Endocrine: Reports: Fatigue GI/Abdominal: Reports: Abdominal Pain (Epigastrium and right upper quadrant.), Decreased Appetite, Distension (Feels distended and bloated.), Nausea. Denies: Diarrhea, Flatus, Vomiting : Reports: Frequency, Incontinence (Incontinence), Urgency Musculoskeletal: Reports: Neck Pain, Shoulder Pain, Back Pain (Knees hips lower back), Joint Pain Skin: Reports: No Symptoms Neurological: Reports: Dizziness, Difficulty Walking (She cannot walk on her own volition.), Weakness. Denies: Confusion, Headache, Numbness, Paresthesia, Pre- Existing Deficit, Syncope, Tingling, Tremors, Trouble Speaking Psychiatric: Reports: No Symptoms Hematologic/Lymphatic: Reports: No Symptoms Immunologic: Reports: No Symptoms ED EXAM, SEPSIS - Physical Exam Exam: See Below Exam Limited By: No Limitations General Appearance: Alert, WD/WN, Moderate Distress, Other (Patient is extremely warm to palpation. I would gasp clinically she is 103 degrees. Nurses recorded temperature is 38.6. Heart rate is 105 and sinus at the bedside respiratory is 32 with O2 sats of 82% room air BP is 1 4375.) Eye Exam: Bilateral Eye: Normal Inspection (No scleral icterus or blepharal pallor appreciated), PERRL Throat/Mouth: Normal Oropharynx, Other (Tongue is mildly dry and coated). No: Normal Teeth Head: Atraumatic, Normocephalic, Other (There are no outward signs of any head or facial trauma) Neck: Normal Inspection, Carotid Bruit (Carotid bruit on the right side referred from her loud heart murmurs.), Limited Range of Motion (Or lateral aspect of the neck to palpation suggesting underlying osteoarthritic change. Loss of 10 degrees of lateral flexion.), Tender Lateral. No: Full Range of Motion, Lymphadenopathy (L), Lymphadenopathy (R), Thyromegaly Respiratory/Chest: Lungs Clear, Normal Breath Sounds, No Accessory Muscle Use, Chest Non-Tender, Respiratory Distress (Tachypneic at rest 32 breaths/min with O2 sats of only 82%) Cardiovascular: No Edema, No JVD, No Rub, Systolic Murmur (Pansystolic ejection murmur grade 3 out of 6. This suggest aortic stenosis as well as mitral insufficiency murmur. Murmur radiates up into the right carotid artery and towards the left axilla.), Gallop/S3. No: Normal Peripheral Pulses Peripheral Pulses: 2+: Carotid (L), Carotid (R), Posterior Tibial (L), Posterior Tibial (R), Dorsalis Pedis (L), Dorsalis Pedis (R) GI/Abdominal Exam: Soft, Non-Tender, No Organomegaly, No Mass, Pelvis Stable, Distended (Abdomen is distended and diffusely tympanitic to percussion.), Abnormal Bowel Sounds (All sounds are few and far between. Fairly quiesced sent). No: Guarding, Rigid, Rebound, Tender Back: CVA Tenderness (L), CVA Tenderness (R) (Mildly bilaterally.), Decreased Range of Motion (Mild kyphosis thoracic spine. Kelty sitting up for examination of her posterior back), Other. No: Full Range of Motion Extremities: Normal Inspection, Normal Range of Motion, Non-Tender, No Pedal Edema Neurological: Alert, Oriented, CN II-XII Intact, Normal Cognition Psychiatric: Normal Affect, Normal Mood EKG INTERPRETATION EKG Date: 04/27/20 Time: 05:53 Rhythm: NSR Rate (Beats/Min): 98 [place]: LAD-Left [place] Deviation P-Wave: Enlarged (Left axis deviation of -39 degrees. Right atrial enlargement.) QRS: Other (There is abnormal R wave progression with late transition. There is left ventricle hypertrophy pattern with strain. There are Q waves in leads III and aVF compared with an old inferior wall myocardial infarction.) ST-T: Depressed (Mild ST segment depression leads I and aVL with T wave inversion cannot rule out ischemia in the circumflex coronary artery.) QT: Prolonged (Mildly prolonged.) EKG Interpretation Comments: Abnormal ECG Course - Vital Signs Last Recorded V/S: Last Vital Signs Temp 38.4 C H 04/27/20 05:14 Pulse 99 04/27/20 06:05 Resp 18 04/27/20 06:05 BP 133/55 L 04/27/20 06:05 Pulse Ox 91 L 04/27/20 06:05 - Orders/Labs/Meds Labs: Laboratory Tests 04/27/20 04/27/20 04/27/20 Range/Units 05:05 05:05 05:05 WBC 4.73 (3.98-10.04) K/mm3 RBC 4.41 (3.98-5.22) M/mm3 Hgb 12.0 (11.2-15.7) gm/dl Hct 38.0 (34.1-44.9) % MCV 86.2 D (79.4-94.8) fl MCH 27.2 (25.6-32.2) pg MCHC 31.6 L (32.2-35.5) g/dl RDW Std Deviation 54.4 H (36.4-46.3) fL Plt Count 186 (182-369) K/mm3 MPV 9.2 L (9.4-12.3) fl Neutrophils % (Manual) 92 H (40-60) % Band Neutrophils % 1 (0-10) % Lymphocytes % (Manual) 6 L (20-40) % Atypical Lymphs % 0 % Monocytes % (Manual) 1 L (2-10) % Eosinophils % (Manual) 0 L (0.7-5.8) % Basophils % (Manual) 0 L (0.1-1.2) Platelet Estimate Adequate Plt Morphology Comment See note Polychromasia 1+ slight Anisocytosis 2+ moderate RBC Morph Comment Abnormal ESR (0-20) mm/hr PT 11.6 (9.7-11.7) SECONDS INR 1.09 APTT 21 L (22-31) SECONDS D-Dimer, Quantitative 17.26 H (0.19-0.50) mg/L Puncture Site ABG pH (7.35-7.45) ABG pCO2 (35.0-45.0) mmHg ABG pO2 (80.0-100.0) mmHg ABG HCO3 (22.0-26.0) meq/L ABG O2 Saturation (96.0-97.0) % ABG Base Excess (-2-2.0) Cullen Test O2 Delivery Device Oxygen Flow Rate Sodium 144 (136-145) mEq/L Potassium 3.4 L (3.5-5.1) mEq/L Chloride 109 H (98-107) mEq/L Carbon Dioxide 25 (21-32) mEq/L Anion Gap 13.4 (5-15) BUN 15 (7-18) mg/dL Creatinine 1.0 (0.55-1.02) mg/dL Est Cr Clr Drug Dosing 1.57 mL/min Estimated GFR (MDRD) 53 (>60) mL/min BUN/Creatinine Ratio 15.0 (14-18) Glucose 94 (83-115) mg/dL Lactic Acid (0.4-2.0) mmol/L Calcium 8.6 (8.5-10.1) mg/dL Magnesium 1.3 L (1.8-2.4) mg/dl Ferritin (8-252) ng/ml Total Bilirubin 1.4 H (0.2-1.0) mg/dL GGT 330 H (5-55) U/L AST 1049 H (15-37) U/L ALT 508 H (14-59) U/L Alkaline Phosphatase 236 H (46-116) U/L Lactate Dehydrogenase 909 H (81-234) U/L CK-MB (CK-2) 1.2 (0-3.6) ng/ml Troponin I < 0.017 (0.00-0.056) ng/mL C-Reactive Protein 1.0 (<1.0) mg/dL NT-Pro-B Natriuret Pep (0-450) pg/mL Total Protein 7.0 (6.4-8.2) g/dl Albumin 2.9 L (3.4-5.0) g/dl Globulin 4.1 gm/dL Albumin/Globulin Ratio 0.7 L (1-2) Lipase 61 L (73-393) U/L Urine Color (Yellow) Urine Appearance (Clear) Urine pH (5.0-8.0) Ur Specific [place] (1.005-1.030) Urine Protein (Negative) Urine Glucose (UA) (Negative) Urine Ketones (Negative) Urine Occult Blood (Negative) Urine Nitrite (Negative) Urine Bilirubin (Negative) Urine Urobilinogen (0.2-1.0) Ur Leukocyte Esterase (Negative) Urine RBC (0-5) /hpf Urine WBC (0-5) /hpf Ur Epithelial Cells (0-5) /hpf Urine Bacteria (FEW) /hpf Urine Mucus (FEW) /hpf SARS-CoV-2 RNA (THOMAS) (NEGATIVE) 04/27/20 04/27/20 04/27/20 Range/Units 05:05 05:05 05:05 WBC (3.98-10.04) K/mm3 RBC (3.98-5.22) M/mm3 Hgb (11.2-15.7) gm/dl Hct (34.1-44.9) % MCV (79.4-94.8) fl MCH (25.6-32.2) pg MCHC (32.2-35.5) g/dl RDW Std Deviation (36.4-46.3) fL Plt Count (182-369) K/mm3 MPV (9.4-12.3) fl Neutrophils % (Manual) (40-60) % Band Neutrophils % (0-10) % Lymphocytes % (Manual) (20-40) % Atypical Lymphs % % Monocytes % (Manual) (2-10) % Eosinophils % (Manual) (0.7-5.8) % Basophils % (Manual) (0.1-1.2) Platelet Estimate Plt Morphology Comment Polychromasia Anisocytosis RBC Morph Comment ESR 11 (0-20) mm/hr PT (9.7-11.7) SECONDS INR APTT (22-31) SECONDS D-Dimer, Quantitative (0.19-0.50) mg/L Puncture Site ABG pH (7.35-7.45) ABG pCO2 (35.0-45.0) mmHg ABG pO2 (80.0-100.0) mmHg ABG HCO3 (22.0-26.0) meq/L ABG O2 Saturation (96.0-97.0) % ABG Base Excess (-2-2.0) Cullen Test O2 Delivery Device Oxygen Flow Rate Sodium (136-145) mEq/L Potassium (3.5-5.1) mEq/L Chloride (98-107) mEq/L Carbon Dioxide (21-32) mEq/L Anion Gap (5-15) BUN (7-18) mg/dL Creatinine (0.55-1.02) mg/dL Est Cr Clr Drug Dosing mL/min Estimated GFR (MDRD) (>60) mL/min BUN/Creatinine Ratio (14-18) Glucose (83-115) mg/dL Lactic Acid (0.4-2.0) mmol/L Calcium (8.5-10.1) mg/dL Magnesium (1.8-2.4) mg/dl Ferritin 45 (8-252) ng/ml Total Bilirubin (0.2-1.0) mg/dL GGT (5-55) U/L AST (15-37) U/L ALT (14-59) U/L Alkaline Phosphatase (46-116) U/L Lactate Dehydrogenase (81-234) U/L CK-MB (CK-2) (0-3.6) ng/ml Troponin I (0.00-0.056) ng/mL C-Reactive Protein (<1.0) mg/dL NT-Pro-B Natriuret Pep 1153 H (0-450) pg/mL Total Protein (6.4-8.2) g/dl Albumin (3.4-5.0) g/dl Globulin gm/dL Albumin/Globulin Ratio (1-2) Lipase (73-393) U/L Urine Color (Yellow) Urine Appearance (Clear) Urine pH (5.0-8.0) Ur Specific [place] (1.005-1.030) Urine Protein (Negative) Urine Glucose (UA) (Negative) Urine Ketones (Negative) Urine Occult Blood (Negative) Urine Nitrite (Negative) Urine Bilirubin (Negative) Urine Urobilinogen (0.2-1.0) Ur Leukocyte Esterase (Negative) Urine RBC (0-5) /hpf Urine WBC (0-5) /hpf Ur Epithelial Cells (0-5) /hpf Urine Bacteria (FEW) /hpf Urine Mucus (FEW) /hpf SARS-CoV-2 RNA (THOMAS) (NEGATIVE) 04/27/20 04/27/20 04/27/20 Range/Units 05:10 06:00 06:20 WBC (3.98-10.04) K/mm3 RBC (3.98-5.22) M/mm3 Hgb (11.2-15.7) gm/dl Hct (34.1-44.9) % MCV (79.4-94.8) fl MCH (25.6-32.2) pg MCHC (32.2-35.5) g/dl RDW Std Deviation (36.4-46.3) fL Plt Count (182-369) K/mm3 MPV (9.4-12.3) fl Neutrophils % (Manual) (40-60) % Band Neutrophils % (0-10) % Lymphocytes % (Manual) (20-40) % Atypical Lymphs % % Monocytes % (Manual) (2-10) % Eosinophils % (Manual) (0.7-5.8) % Basophils % (Manual) (0.1-1.2) Platelet Estimate Plt Morphology Comment Polychromasia Anisocytosis RBC Morph Comment ESR (0-20) mm/hr PT (9.7-11.7) SECONDS INR APTT (22-31) SECONDS D-Dimer, Quantitative (0.19-0.50) mg/L Puncture Site ABG pH (7.35-7.45) ABG pCO2 (35.0-45.0) mmHg ABG pO2 (80.0-100.0) mmHg ABG HCO3 (22.0-26.0) meq/L ABG O2 Saturation (96.0-97.0) % ABG Base Excess (-2-2.0) [place]ullen Test O2 Delivery Device Oxygen Flow Rate Sodium (136-145) mEq/L Potassium (3.5-5.1) mEq/L Chloride (98-107) mEq/L Carbon Dioxide (21-32) mEq/L Anion Gap (5-15) BUN (7-18) mg/dL Creatinine (0.55-1.02) mg/dL Est Cr Clr Drug Dosing mL/min Estimated GFR (MDRD) (>60) mL/min BUN/Creatinine Ratio (14-18) Glucose (83-115) mg/dL Lactic Acid 2.4 H* (0.4-2.0) mmol/L Calcium (8.5-10.1) mg/dL Magnesium (1.8-2.4) mg/dl Ferritin (8-252) ng/ml Total Bilirubin (0.2-1.0) mg/dL GGT (5-55) U/L AST (15-37) U/L ALT (14-59) U/L Alkaline Phosphatase (46-116) U/L Lactate Dehydrogenase (81-234) U/L CK-MB (CK-2) (0-3.6) ng/ml Troponin I (0.00-0.056) ng/mL C-Reactive Protein (<1.0) mg/dL NT-Pro-B Natriuret Pep (0-450) pg/mL Total Protein (6.4-8.2) g/dl Albumin (3.4-5.0) g/dl Globulin gm/dL Albumin/Globulin Ratio (1-2) Lipase (73-393) U/L Urine Color Yellow (Yellow) Urine Appearance Clear (Clear) Urine pH 6.5 (5.0-8.0) Ur Specific [place] 1.025 (1.005-1.030) Urine Protein 1+ H (Negative) Urine Glucose (UA) Negative (Negative) Urine Ketones Negative (Negative) Urine Occult Blood 1+ H (Negative) Urine Nitrite Negative (Negative) Urine Bilirubin Negative (Negative) Urine Urobilinogen 1.0 (0.2-1.0) Ur Leukocyte Esterase Negative (Negative) Urine RBC 0-5 (0-5) /hpf Urine WBC Not seen (0-5) /hpf Ur Epithelial Cells Not seen (0-5) /hpf Urine Bacteria Few (FEW) /hpf Urine Mucus Not seen (FEW) /hpf SARS-CoV-2 RNA (THOMAS) Negative (NEGATIVE) 04/27/20 04/27/20 04/27/20 Range/Units 06:27 09:25 12:47 WBC (3.98-10.04) K/mm3 RBC (3.98-5.22) M/mm3 Hgb (11.2-15.7) gm/dl Hct (34.1-44.9) % MCV (79.4-94.8) fl MCH (25.6-32.2) pg MCHC (32.2-35.5) g/dl RDW Std Deviation (36.4-46.3) fL Plt Count (182-369) K/mm3 MPV (9.4-12.3) fl Neutrophils % (Manual) (40-60) % Band Neutrophils % (0-10) % Lymphocytes % (Manual) (20-40) % Atypical Lymphs % % Monocytes % (Manual) (2-10) % Eosinophils % (Manual) (0.7-5.8) % Basophils % (Manual) (0.1-1.2) Platelet Estimate Plt Morphology Comment Polychromasia Anisocytosis RBC Morph Comment ESR (0-20) mm/hr PT (9.7-11.7) SECONDS INR APTT (22-31) SECONDS D-Dimer, Quantitative (0.19-0.50) mg/L Puncture Site Lt radial ABG pH 7.30 L (7.35-7.45) ABG pCO2 42.1 (35.0-45.0) mmHg ABG pO2 70.0 L (80.0-100.0) mmHg ABG HCO3 20.1 L (22.0-26.0) meq/L ABG O2 Saturation 91.6 L (96.0-97.0) % ABG Base Excess -5.5 L (-2-2.0) Cullen Test Positive O2 Delivery Device Nasal cannula Oxygen Flow Rate 3.0 Sodium (136-145) mEq/L Potassium (3.5-5.1) mEq/L Chloride (98-107) mEq/L Carbon Dioxide (21-32) mEq/L Anion Gap (5-15) BUN (7-18) mg/dL Creatinine (0.55-1.02) mg/dL Est Cr Clr Drug Dosing mL/min Estimated GFR (MDRD) (>60) mL/min BUN/Creatinine Ratio (14-18) Glucose (83-115) mg/dL Lactic Acid 2.3 H* 2.4 H* (0.4-2.0) mmol/L Calcium (8.5-10.1) mg/dL Magnesium (1.8-2.4) mg/dl Ferritin (8-252) ng/ml Total Bilirubin (0.2-1.0) mg/dL GGT (5-55) U/L AST (15-37) U/L ALT (14-59) U/L Alkaline Phosphatase (46-116) U/L Lactate Dehydrogenase (81-234) U/L CK-MB (CK-2) (0-3.6) ng/ml Troponin I (0.00-0.056) ng/mL C-Reactive Protein (<1.0) mg/dL NT-Pro-B Natriuret Pep (0-450) pg/mL Total Protein (6.4-8.2) g/dl Albumin (3.4-5.0) g/dl Globulin gm/dL Albumin/Globulin Ratio (1-2) Lipase (73-393) U/L Urine Color (Yellow) Urine Appearance (Clear) Urine pH (5.0-8.0) Ur Specific [place] (1.005-1.030) Urine Protein (Negative) Urine Glucose (UA) (Negative) Urine Ketones (Negative) Urine Occult Blood (Negative) Urine Nitrite (Negative) Urine Bilirubin (Negative) Urine Urobilinogen (0.2-1.0) Ur Leukocyte Esterase (Negative) Urine RBC (0-5) /hpf Urine WBC (0-5) /hpf Ur Epithelial Cells (0-5) /hpf Urine Bacteria (FEW) /hpf Urine Mucus (FEW) /hpf SARS-CoV-2 RNA (THOMAS) (NEGATIVE) Meds: Medications Discontinued Medications Generic Name Dose Route Start Last Admin Trade Name Guan[place] PRN Reason Stop Dose Admin Acetaminophen 650 mg 04/27/20 05:38 04/27/20 06:00 Tylenol PO 650 mg Q4H PRN Administration Pain Hydromorphone HCl 0.25 mg 04/27/20 09:34 04/27/20 09:52 Dilaudid IVPUSH 04/27/20 09:35 0.25 mg ONETIME ONE Administration Dextrose/Sodium Chloride 1,000 mls @ 999 mls/hr 04/27/20 05:45 04/27/20 06:25 Dextrose 5%-Normal Saline IV 250 mls/hr ASDIRECTED PAOLO Infusion Dextrose/Sodium Chloride 1,000 mls @ 250 mls/hr 04/27/20 06:15 10/06/20 07:36 Dextrose 5%-Normal Saline IV 250 mls/hr ASDIRECTED PAOLO Administration Piperacillin Sod/Tazobactam 100 mls @ 200 mls/hr 04/27/20 07:00 04/27/20 07:36 Sod 4.5 gm/ Sodium Chloride IV 04/27/20 07:29 200 mls/hr ONETIME ONE Administration Magnesium Sulfate 4 gm/ Premix 50 mls @ 12.5 mls/hr 04/27/20 07:03 04/27/20 08:13 IV 04/27/20 11:02 12.5 mls/hr ONETIME ONE Administration Sodium Chloride 100 mls @ 75 mls/hr 04/27/20 08:15 Normal Saline IV ASDIRECTED PAOLO Sodium Chloride 100 mls @ 60 mls/hr 04/27/20 09:15 04/27/20 09:07 Normal Saline IV 60 mls/hr ASDIRECTED PAOLO Administration Iopamidol 100 ml 04/27/20 08:05 Isovue-370 (76%) IVPUSH 04/27/20 08:06 ONETIME ONE Iopamidol 100 ml 04/27/20 09:03 04/27/20 09:07 Isovue-370 (76%) IVPUSH 04/27/20 09:04 100 ml ONETIME ONE Administration Ondansetron HCl 4 mg 04/27/20 05:56 04/27/20 06:03 Zofran IVPUSH 04/27/20 05:57 4 mg ONETIME ONE Administration Sodium Chloride 10 ml 04/27/20 08:05 04/27/20 09:08 Saline Flush FLUSH 10 ml ONETIME PRN Administration IV FLUSH Sodium Chloride 10 ml 04/27/20 09:03 04/27/20 09:07 Saline Flush FLUSH 04/27/20 09:04 10 ml ONETIME ONE Administration - Radiology Interpretation Free Text/Narrative:: 80-year-old female of [place] ancestry is brought to our hospital from [facility] by there amblulance. She is difficult to obtain but from history it sounds like she has had problems with recurrent biliary tree obstruction requiring it to be cleaned out. And not sure if this means that she has recurrent stones or sludge after cholecystectomy greater than 20 years ago. At present she presents with acute high fever of 103 degrees. 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 History of congestive heart failure. Unknown if she has an history of coronary artery disease. The abdomen is distended and somewhat tympanitic to percussion throughout. Very few bowel sounds present on examination. Nontender and soft palpation. There is no signs of infection in the integument. Plan septic work- up to be carried out including cath urine specimen. She will be screened for COVID-19 illness as she will be admitted to the hospital somewhere. Given Tylenol 650 mg p.o. for fever relief. IV will be D5 normal saline at 500 mils per hour for now. Zofran 4 mg IV for nausea relief. Her current medication list includes sildenafil 20 mg 3 times daily for severe pulmonary hypertension. - Re-Assessments/Exams Free Text/Narrative Re-Assessment/Exam: 04/27/20 06:27 vital signs reveal a blood pressure of 123/58 O2 sats 91 to 92% on 3 L/min by nasal cannula. Heart rate is 102 and sinus. 04/27/20 06:56 audible chest x-ray has just been completed. Cardiac silhouette appears to be normal. Poor inspirational view. There appears to be a diffuse vascular congestion pattern. Possible early infiltrates both lower lobes COVID- 19 viral pneumonia cannot be ruled out based on chest x-ray alone. There is increased air within the stomach and portion of the small bowel in the upper abdomen. She was diffusely tympanitic to percussion. 04/27/20 07:00 White count is low at 4.73 worrisome for COVID-19 illness. Differential pending hemoglobin is 12.0 with hematocrit of 38.0 MCV is normal at 86.2. Platelet count 186,000. PT is 11.6 with an INR of 1.09. PTT is 21 d- dimer is markedly elevated at 17.26. ABGs revealed a pH of 7.30 PCO2 of 42.1 PO2 of 70 and bicarb of 20.1. Saturations were estimated to be 91.6% and this was done on 3 L of oxygen by nasal cannula. Sodium 144 potassium slightly low at 3.4. Chloride 109 with a bicarb of 25. Anion gap is 13.4. BUN is 15 with a creatinine of 1.0. Therefore she is a candidate for CT pulmonary angiogram estimated GFR is 53. BUN/creatinine ratio is normal at 15.0. Glucose 94. Calcium 8.6. Magnesium very low at 1.3 bilirubin is slightly elevated at 1.4 GGT elevated at 330 AST elevated at 1049 ALT is 508. Alk phosphatase is 236 LDH is elevated at 909. CK-MB fraction is 1.2. Troponin I is less than 0.017. C- reactive protein is 1.0 total protein 7.0 albumin fraction 2.9 with a globulin of 4.1. Lipase is normal at 61. Urinalysis is yellow 1+ proteinuria 1+ occult blood leukocyte esterase is negative no white cells or RBCs per high-power field on slide review. 04/27/20 07:02 care will be transferred to Dr. Larry as it is change of shift. 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 However one would anticipate much more elevated white count in response to infection in this area. She could also have COVID-19 accounting for her low white count and slightly low platelet count. These tests are pending. In the meantime she will be started on Zosyn 4.5 g intravenously. She will also need magnesium replacement. Departure - Discharge Information *PRESCRIPTION DRUG MONITORING PROGRAM REVIEWED*: Not Applicable Sepsis Event Note (ED) - Evaluation Sepsis Screening Result: Possible Sepsis Risk
[2020-04-27] MEDS ORDERED: Acetaminophen 325 MG Tab PO PRN (05:38)
[2020-04-27] MEDS ORDERED: Dextrose 5%-0.9% NaCl 1,000 ML IV SCH ×2 (05:45→06:15)
[2020-04-27] MEDS ORDERED: Ondansetron 4 MG/2 ML SDV IVPUSH ONE (05:56)
[2020-04-27] MEDS ORDERED: Piperacillin/Tazobactam 4.5 GM in Sodium Chloride 0.9% 100 ML IV ONE (07:00)
[2020-04-27] MEDS ORDERED: Magnesium Sulfate/Water 4 GM in Premix Bag 1 BAG IV ONE (07:03)
[2020-04-27] MEDS ORDERED: Sodium Chloride 0.9% 10 ML Syringe FLUSH PRN (08:05)
[2020-04-27] MEDS ORDERED: Iopamidol 755 Mg/ML 100 ML Bottle IVPUSH ONE ×2 (08:05→09:03)
[2020-04-27] MEDS ORDERED: Sodium Chloride 0.9% 100 ML IV SCH ×2 (08:15→09:15)
[2020-04-27] MEDS ORDERED: Sodium Chloride 0.9% 10 ML Syringe FLUSH ONE (09:03)
[2020-04-27] MEDS ORDERED: HYDROmorphone 0.5 MG/0.5 ML Syringe IVPUSH ONE (09:34)
--- NOTE | 2020-05-28 11:29 | CT ---
"PROCEDURE INFORMATION: Exam: CT Angiography Chest With Contrast Exam date and time: 04/27/2020 8:26 AM Age: 80 years old Clinical indication: Abnormal findings; Abnormal diagnostic tests; Elevated d- dimer TECHNIQUE: Imaging protocol: Computed tomographic angiography of the chest with intravenous contrast. 3D rendering (Not supervised by radiologist): MIP and/or 3D reconstructed images were created by the technologist. Radiation optimization: All CT scans at this facility use at least one of these dose optimization techniques: automated exposure control; mA and/or kV adjustment per patient size (includes targeted exams where dose is matched to clinical indication); or iterative reconstruction. COMPARISON: CT Ang Chest 11/21/2017 10:53 AM FINDINGS: Pulmonary arteries: No central pulmonary embolism. Cannot exclude segmental or subsegmental emboli due to streak artifact and suboptimal opacification of the distal pulmonary arterial circulation. Aorta: There is a thoracic endograft in the distal thoracic aortic arch and the descending thoracic aorta. No aneurysm or dissection. Lungs: There is bilateral chronic interstitial lung disease with subpleural reticulation and honeycombing. Volume loss and bronchiectasis in the posteromedial lower lobes bilaterally. Pleural space: No pneumothorax or pleural effusion. Heart: The heart is not enlarged. No pericardial effusion. There is coronary artery disease. Lymph nodes: No enlarged lymph nodes. Bones/joints: No acute osseous abnormality. Soft tissues: No acute soft tissue abnormality. IMPRESSION: RAYMOND CERNANE | Final Radiology Report CONFIDENTIALITY STATEMENT This report is intended only for use by the referring physician, and only in accordance with law. If you received this in error, call [phone]. Page 2 of 2 1. No central pulmonary embolism. Cannot exclude segmental or subsegmental emboli due to technical factors. 2. Chronic interstitial lung disease. Bronchiectasis. 3. Coronary artery disease. COMMENTS: The exam was performed on 04/27/2020 but only presented for FINAL interpretation today. Thank you for allowing us to participate in the care of your patient. Dictated and Authenticated by: Devyn Delgado MD 05/25/2020 8:06 AM Central Time ([place] & [place]) [facility]"
--- NOTE | 2020-05-28 12:04 | CR ---
PROCEDURE INFORMATION: Exam: XR Chest, 1 View Exam date and time: 04/27/2020 6:27 AM Age: 80 years old Clinical indication: Dyspnea; Patient HX: Mild cough, covid-19 precautions. TECHNIQUE: Imaging protocol: XR of the chest Views: 1 view. COMPARISON: DX Chest 1V Frontal 01/10/2020 11:40 PM FINDINGS: Lungs: Poor inspiration. Decreased lung volumes. Mild central pulmonary vascular congestion. Bilateral central bronchial wall thickening and perihilar haziness. Bibasilar airspace disease which can be due to atelectasis, but dependent pulmonary edema is not excluded. There is thickening of the minor fissure. Questionable septal line formation in the right lung base. Pleural space: Trace left pleural effusion. No right pleural effusion evident. No pneumothorax. Heart/Mediastinum: The cardiac silhouette is not enlarged. Vasculature: Prior thoracic aortic endograft placement. Bones/joints: No acute osseous abnormality. IMPRESSION: Favor congestive heart failure. COMMENTS: The exam was performed on 04/27/2020 but only presented for FINAL interpretation today. Thank you for allowing us to participate in the care of your patient. Dictated and Authenticated by: Devyn Delgado MD 05/25/2020 8:03 AM Central Time ([place] & [place]) [facility]
--- NOTE | 2020-05-28 12:05 | CT ---
PROCEDURE INFORMATION: Exam: CT Abdomen And Pelvis With Contrast Exam date and time: 04/27/2020 8:26 AM Age: 80 years old Clinical indication: Abdominal pain; Patient HX: Upper abd pain, HX biliary tree infection TECHNIQUE: Imaging protocol: Computed tomography of the abdomen and pelvis with intravenous contrast. Radiation optimization: All CT scans at this facility use at least one of these dose optimization techniques: automated exposure control; mA and/or kV adjustment per patient size (includes targeted exams where dose is matched to clinical indication); or iterative reconstruction. COMPARISON: No relevant prior studies available. FINDINGS: Liver: The liver is not enlarged. Partially calcified subcapsular cyst. Gallbladder and bile ducts: Prior cholecystectomy. There are dilated intrahepatic bile ducts in the left lobe. There is pneumobilia. Pancreas: The pancreas is somewhat diffusely atrophic. No pancreatic ductal dilatation. No peripancreatic inflammation or fluid. Spleen: The spleen is homogeneous and is not enlarged. There is accessory splenic tissue. Adrenal glands: No adrenal mass. Kidneys and ureters: No hydronephrosis. No nephrolithiasis. Small bilateral renal cortical scars. Stomach and bowel: There is colonic diverticulosis without evidence of diverticulitis. No bowel obstruction. Appendix: The appendix has a normal caliber with no wall thickening. No periappendiceal stranding. Intraperitoneal space: No ascites or pneumoperitoneum. Vasculature: No abdominal aortic aneurysm. No iliac or common femoral artery aneurysm. The mesenteric arteries are patent. The mesenteric, portal, and hepatic veins are patent. Lymph nodes: No enlarged lymph nodes. Urinary bladder: No urinary bladder calculus or wall thickening. Reproductive: Prior hysterectomy. [facility] | Final Radiology Report CONFIDENTIALITY STATEMENT This report is intended only for use by the referring physician, and only in accordance with law. If you received this in error, call [phone]. 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 Soft tissues: Tiny umbilical hernia containing fat. IMPRESSION: 1. Diverticulosis without diverticulitis. 2. Prior cholecystectomy. Intrahepatic biliary ductal dilatation, which may be related to the post cholecystectomy state. Pneumobilia, potentially due to prior sphincterotomy. COMMENTS: The exam was performed on 04/27/2020 but only presented for FINAL interpretation today." Thank you for allowing us to participate in the care of your patient. Dictated and Authenticated by: Devyn Delgado MD 05/25/2020 8:05 AM Central Time ([place] & [place]) [place]
== END 2020-04-27 13:56 ==
LOC: JD.ED 04:51
DX: R10.11 Right upper quadrant pain (principal); R50.81 Fever presenting with conditions classified elsewhere; I27.20 Pulmonary hypertension, unspecified; I11.0 Hypertensive heart disease with heart failure; I50.9 Heart failure, unspecified; E11.9 Type 2 diabetes mellitus without complications; E03.9 Hypothyroidism, unspecified; Z88.5 Allergy status to narcotic agent; Z88.8 Allergy status to other drugs, medicaments and biological substances; Z88.2 Allergy status to sulfonamides; Z79.899 Other long term (current) drug therapy; Z20.828 Contact with and (suspected) exposure to other viral communicable diseases
CPT/HCPCS: 36415; 36600; 71045; 71275; 74177; 80053; 81001; 82553; 82728; 82803; 82977; 83605; 83615; 83690; 83735; 83880; 84484; 85007; 85027; 85379; 85610; 85652; 85730; 86140; 87040; 93005; 96361; 96365; 96366; 96367; 96375; 99285; A9270; J1170; J2405; J2543; J3475; J7042; J7050; Q9967; U0002; 87077; 87186; 93010

== ENCOUNTER 2020-05-20 15:58 | Inpatient (IN) | payer MEDICARE, OTHER ==
[2020-05-20] MEDS ORDERED: Sodium Chloride 0.9% 10 ML Syringe FLUSH PRN ×2 (17:03→20:55)
--- NOTE | 2020-05-20 18:30 | PCM.HP.2 ---
H&P History of Present Illness - General Date of Service: 05/20/20 Admit Problem/Dx: Admission Diagnosis/Problem Admission Diagnosis/Problem Viral pneumonia - History of Present Illness Initial Comments - Free Text/Narative: 80-year-old female with history of pulmonary fibrosis, pulmonary hypertension, congestive heart failure, hypertension, and recent admission for sepsis. Patient was seen here on April 27, 2020 and transferred to [facility] in [place] secondary to intra-abdominal infection and sepsis. Patient states that she stay for approximately 1 week and was discharged. Patient states that she started feeling ill on May 13 and was seen in the emergency department in [place]. She was diagnosed with Covid at that time. CT angiogram done showed no pulmonary emboli but pulmonary infiltrates compatible with COVID-19 pneumonitis. Cardiomegaly. Pneumobilia that worsened. Tiny pericardial effusion. Enlargement of the pulmonary artery suggests pulmonary artery hypertension. Patient had adequate oxygenation and was sent home on dexamethasone. When she arrived today at the emergency department in [place] she again had worsening shortness of breath especially with activity. They had increased her oxygen from normal of 1 L up to 2 to 3 L and her saturations were doing well cash ngs she was not active. If she did any activity it would increase her dyspnea and decrease her oxygen saturations. She has had a decrease in appetite and is not drinking well. Chest x-ray done in the emergency department showed worsening of her pneumonia left greater than right. Labs on the showed a D-dimer of 4 with WBC of 6.1, estimated GFR 54, positive Covid. Today's lab did not repeat a D-dimer, white count was still normal at 6.2, GFR 75. She was given 1 g Rocephin today in the emergency department. The emergency department physician Dr. Smith called us for since they did not have any beds available. When patient arrived at the the floor she was on 3 L nasal cannula and sat urations are in the low to mid 90s. She does complain of some poor appetite, no recent fevers, fatigue, painful mouth, white vaginal discharge, mild dysuria, and 2 soft stools. - Related Data Allergies/Adverse Reactions: Allergies Allergy/AdvReac Type Severity Reaction Status Date / Time codeine Allergy Rash Verified 04/27/20 04:57 NSAIDS (Non-Steroidal Allergy Rash Verified 04/27/20 04:57 Anti-Inflamma simvastatin Allergy Rash Verified 05/20/20 19:13 Sulfa (Sulfonamide Allergy Rash Verified 04/27/20 04:57 Antibiotics) zolpidem [From Ambien] Allergy Other Verified 05/20/20 19:13 Home Medications: Home Meds Albuterol [Ventolin HFA] 2 puff INH Q4H PRN 11/21/17 [History] Cholecalciferol (Vitamin D3) [Vitamin D] 2,000 units PO DAILY 11/21/17 [History] Sildenafil Citrate [Sildenafil] 20 mg PO TID 11/21/17 [History] Tolterodine [Detrol LA 24 Hr] 4 mg PO DAILY 11/21/17 [History] Acetaminophen 325 mg PO Q4H PRN 05/20/20 [History] Fluticasone Propionate [Flonase] 1 spray NASBOTH DAILY 05/20/20 [History] Furosemide [Lasix] 20 mg PO DAILY PRN 05/20/20 [History] Ipratropium [Atrovent 0.03% Nasal [place]] 2 spray NASBOTH TID 05/20/20 [History] Ipratropium [Atrovent] 1 vial NEB Q4H PRN 05/20/20 [History] Levothyroxine [Synthroid] 50 mcg PO DAILY 05/20/20 [History] Lidocaine 5% [Lidoderm 5%] 1 patch TOP DAILY PRN 05/20/20 [History] Metoprolol Succinate [Toprol Xl] 50 mg PO DAILY 05/20/20 [History] Pantoprazole Sodium [Protonix] 40 mg PO DAILY 05/20/20 [History] Potassium Chloride [Klor-Con 10] 10 meq PO DAILY 05/20/20 [History] dexAMETHasone [Dexamethasone] 6 mg PO DAILY 05/20/20 [History] Past Medical History HEENT History: Reports: Allergic Rhinitis, Cataract, Hard of Hearing, Impaired Vision, Other (See Below) Other HEENT History: Wears glasses Cardiovascular History: Reports: Aneurysm, Heart Failure, Heart Murmur, High Cholesterol, Hypertension, Other (See Below) Other Cardiovascular History: 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 Her ENT surgeon is at the [facility]. Patient states every now and then she gets heart palpitations. Respiratory History: Reports: Pulmonary Fibrosis, Other (See Below) Other Respiratory History: Hypoxia her fiber glass worker is Dr. Felipa Cheek in [place]. 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 - Infectious Disease History Infectious Disease History: Reports: Chicken Pox, Measles - Past Surgical History HEENT Surgical History: Reports: Cataract Surgery, Naso-Sinus Surgery, Oral Surgery, Polypectomy Cardiovascular Surgical History: Reports: Aneurysm Respiratory Surgical History: Reports: None GI Surgical History: Reports: Cholecystectomy, Hernia, Abdominal Female Surgical History: Reports: Hysterectomy Endocrine Surgical History: Reports: None Neurological Surgical History: Reports: None Social & Family History - Family History Family Medical History: Noncontributory - Living Situation & Occupation Living situation: Reports: , Alone Occupation: Retired H&P Review of Systems - Review of Systems: Review Of Systems: Comprehensive ROS is negative, except as noted in HPI. Exam - Exam Exam: See Below - Vital Signs Vital Signs: Last Vital Signs Temp Pulse Resp BP Pulse Ox 96 05/20/20 16:15 - Exam Quality Assessment: Supplemental Oxygen HEENT: Conjunctiva Clear, EOMI, Pupils Reactive. No: Hearing Intact (Decreased hearing), Mucosa Moist & [place] (Mildly erythematous with red tongue and white cottage cheese exudate on the edges of her tongue) Neck: Supple, Trachea Midline, 2 Lungs: Clear to Auscultation Cardiovascular: Regular Rate, Regular Rhythm, Systolic Murmur (Best heard in left second intercostal space ) GI/Abdominal Exam: Normal Bowel Sounds, Soft, Non-Tender, No Organomegaly, No Distention, No Abnormal Bruit, No Mass (Female) Exam: Deferred Extremities: Normal Inspection, Normal Range of Motion, Non-Tender, No Pedal Edema, Normal Capillary Refill Skin: Warm, Dry, Intact Neurological: Cranial Nerves Intact Neuro Extensive - Mental Status: Alert, Oriented x3, Normal Mood/Affect, Normal Cognition Psychiatric: Alert, Normal Affect, Normal Mood - Patient Data Lab Results Last 24 hrs: Laboratory Results - last 24 hr 05/20/20 05/20/20 Range/Units 17:41 17:46 WBC 5.94 (3.98-10.04) K/mm3 RBC 4.58 (3.98-5.22) M/mm3 Hgb 12.6 (11.2-15.7) gm/dl Hct 39.8 (34.1-44.9) % MCV 86.9 (79.4-94.8) fl MCH 27.5 (25.6-32.2) pg MCHC 31.7 L (32.2-35.5) g/dl RDW Std Deviation 58.4 H (36.4-46.3) fL Plt Count 160 L (182-369) K/mm3 MPV 9.7 (9.4-12.3) fl Neut % (Auto) 78.0 H (34.0-71.1) % Lymph % (Auto) 12.6 L (19.3-51.7) % [place] % (Auto) 8.9 (4.7-12.5) % Eos % (Auto) 0.3 L (0.7-5.8) Baso % (Auto) 0.0 L (0.1-1.2) % Neut # (Auto) 4.63 (1.56-6.13) K/mm3 Lymph # (Auto) 0.75 L (1.18-3.74) K/mm3 [place] # (Auto) 0.53 H (0.24-0.36) K/mm3 Eos # (Auto) 0.02 L (0.04-0.36) K/mm3 Baso # (Auto) 0.00 L (0.01-0.08) K/mm3 Puncture Site Lt radial ABG pH 7.41 (7.35-7.45) ABG pCO2 42.4 (35.0-45.0) mmHg ABG pO2 55.0 L (80.0-100.0) mmHg ABG HCO3 26.3 H (22.0-26.0) meq/L ABG O2 Saturation 87.5 L (96.0-97.0) % ABG Base Excess 1.9 (-2-2.0) [place] Test Positive A-a Gradient 120 mmHg O2 Delivery Device Nasal cannula Oxygen Flow Rate 3.0 FiO2 32.00 (21.00-100.00) % Result Diagrams: 05/20/20 17:46 05/20/20 17:46 #1 Interpretation EKG Date: 05/20/20 Time: 17:27 Rhythm: NSR Rate (Beats/Min): 82 [place]: LAD-Left [place] Deviation (Left anterior hemiblock) P-Wave: Present (Left atrial abnormality) QRS: Normal ST-T: Normal QT: Normal Sepsis Event Note - Focused Exam Vital Signs: Vital Signs Pulse Ox 05/20/20 16:15 96 - Problem List (1) Pneumonia due to COVID-19 virus SNOMED Code(s): 476853271063320844 ICD Code: U07.1 - COVID-19; J12.89 - OTHER VIRAL PNEUMONIA Status: Acute Current Visit: Yes (2) Pulmonary hypertension SNOMED Code(s): 00045975 ICD Code: I27.20 - PULMONARY HYPERTENSION, UNSPECIFIED Status: Acute Current Visit: No (3) CHF (congestive heart failure) SNOMED Code(s): 57432032 ICD Code: I50.9 - HEART FAILURE, UNSPECIFIED Status: Acute Current Visit: Yes (4) Thrush, oral SNOMED Code(s): 02873297 ICD Code: B37.0 - CANDIDAL STOMATITIS Status: Acute Current Visit: Yes (5) Vaginal thrush SNOMED Code(s): 55035130 ICD Code: B37.3 - CANDIDIASIS OF VULVA AND VAGINA Status: Acute Current Visit: Yes (6) Pulmonary fibrosis SNOMED Code(s): 00609018 ICD Code: J84.10 - PULMONARY FIBROSIS, UNSPECIFIED Status: Acute Current Visit: Yes (7) Bronchiectasis SNOMED Code(s): 08652100 ICD Code: J47.9 - BRONCHIECTASIS, UNCOMPLICATED Status: Acute Current Visit: Yes Problem List Initiated/Reviewed/Updated: Yes Orders Last 24hrs: Active Orders 24 hr Category Date Time Status Patient Status [ADT] Routine ADT 05/20/20 17:03 Active Cardiac Monitoring [RC] . DIRECTED Care 05/20/20 17:03 Active Chest Physiotherapy [RT Chest Physiotherapy] [RC] Care 05/20/20 16:15 Active ASDIRECTED Nurse Communication: Isolation [RC] ASDIRECTED Care 05/20/20 17:05 Active Oxygen Therapy [RC] PRN Care 05/20/20 17:03 Active Positioning, Patient [RC] ASDIRECTED Care 05/20/20 17:08 Active Pulse Oximetry [RC] CONTINUOUS Care 05/20/20 17:06 Active RT Incentive Spirometry [RC] ASDIRECTED Care 05/20/20 16:15 Active Up With Assistance [RC] ASDIRECTED Care 05/20/20 17:03 Active VTE/DVT Education [RC] QSHIFT Care 05/20/20 17:03 Active Vital Signs [RC] Q4H Care 05/20/20 17:03 Active Consult to Watchstander [CONS] Routine Cons 05/20/20 17:03 Active PT Evaluation and Treatment [CONS] Routine Cons 05/20/20 17:03 Active Regular Diet [DIET] Diet 05/20/20 Dinner Active Chest 1V Frontal [CR] AM Exams 05/21/20 05:11 Ordered C-REACTIVE PROTEIN [CHEM] Stat Lab 05/20/20 17:46 Received COMPREHENSIVE METABOLIC PN,CMP [CHEM] Stat Lab 05/20/20 17:46 Received CULTURE BLOOD [BC] Stat Lab 05/20/20 17:46 Received CULTURE BLOOD [BC] Stat Lab 05/20/20 17:56 Received CULTURE SPUTUM + SMEAR [RM] Routine Lab 05/20/20 17:10 Ordered D-DIMER QUANTITATIVE [COAG] Stat Lab 05/20/20 17:46 Received FERRITIN [CHEM] Routine Lab 05/20/20 17:46 Received INR,PT,PROTHROMBIN TIME [COAG] Routine Lab 05/20/20 17:46 Received LACTATE DEHYDROGENASE,LDH [CHEM] Stat Lab 05/20/20 17:46 Received LACTIC ACID [CHEM] Stat Lab 05/20/20 17:46 Received PROCALCITONIN [REF] Stat Lab 05/20/20 17:46 Received PTT,PARTIAL THROMBOPLSTIN TIME [COAG] Routine Lab 05/20/20 17:46 Received UA W/SERAFIN RFLX IF INDICATED [URIN] Routine Lab 05/20/20 17:03 Ordered Acetaminophen [TylenoL] Med 05/20/20 17:03 Active 650 mg PO Q4H PRN Enoxaparin [Lovenox] Med 05/21/20 09:00 Active 40 mg SUBCUT DAILY Ondansetron [Zofran] Med 05/20/20 17:03 Active 4 mg IV Q4H PRN Remdesivir (Eua) [Remdesivir (EUA)] 100 mg Med 05/21/20 18:00 Active Sodium Chloride 0.9% [Normal Saline] 100 ml IV Q24H Remdesivir (Eua) [Remdesivir (EUA)] 200 mg Med 05/20/20 18:00 Active Sodium Chloride 0.9% [Normal Saline] 250 ml IV ONETIME Sodium Chloride 0.9% [Saline Flush] Med 05/20/20 17:03 Active 10 ml FLUSH ASDIRECTED PRN dexAMETHasone Med 05/21/20 09:00 Active 6 mg PO DAILY Blood Culture x2 Reflex Set [OM.PC] Stat Ot 05/20/20 18:07 Ordered Isolation [COMM] Stat Ot 05/20/20 17:03 Ordered Peripheral IV Insertion Adult [OM.PC] Routine Oth 05/20/20 17:03 Ordered RT Acapella [RESPCARE] Routine Oth 05/20/20 17:03 Active Resuscitation Status Routine Resus Stat 05/20/20 17:03 Ordered Medication Orders Acetaminophen (Tylenol) 650 mg PO Q4H PRN PRN Reason: Pain (Mild 1-3)/fever Dexamethasone (Dexamethasone) 6 mg PO DAILY PAOLO Stop: 05/23/20 09:01 Enoxaparin Sodium (Lovenox) 40 mg SUBCUT DAILY [facility] Remdesivir 200 mg/ Sodium (Chloride) 250 mls @ 250 mls/hr IV ONETIME ONE Stop: 05/20/20 18:59 Remdesivir 100 mg/ Sodium (Chloride) 100 mls @ 100 mls/hr IV Q24H PAOOL Stop: 05/24/20 18:59 Ondansetron HCl (Zofran) 4 mg IV Q4H PRN PRN Reason: Nausea/Vomiting Sodium Chloride (Saline Flush) 10 ml FLUSH ASDIRECTED PRN PRN Reason: Keep Vein Open Assessment/Plan Comment:: Assessment * 78-year-old female with known Covid and pulmonary fibrosis with worsening oxygenation and increasing D-dimer. * Recent hospitalization for sepsis on April 27, 2020. D-dimer at that time was 17. * Oral thrush and vaginal candidiasis * History of pulmonary hypertension, pulmonary fibrosis, bronchiectasis, hypertension, congestive heart failure, severe valvular disease involving both the aortic valve and mitral valve, abdominal aortic aneurysm with endovascular grafting Unfortunate patient is high risk for complications secondary to her multiple medical problems which include cardiac and respiratory disease. Patient is in her 80s, is on oxygen at baseline, heart failure and hypertension, has poor appetite, multiple medical problems. Plan * Admit to floor on telemetry and continuous pulse ox * Start remdesivir 200 mg IV x1 then 100 mg IV x4 days * Continue dexamethasone 6 mg daily for 3 more days. * Offered convalescent plasma, but patient wanted to speak to her son before getting it. * Nystatin swish and spit 4 times daily * Diflucan 150 mg p.o. x1 may repeat in 3 days. * Hold off for antibiotics at this time. * Repeat CBC, CMP, D-dimer, CRP. Get ferritin, INR, PTT, LDH. * Follow CBC, CMP, D-dimer, CRP, mag, Phos daily or every other day starting 05/22/2020 * VTE prophylaxis with Lovenox * CODE STATUS: DO NOT INTUBATE but wants "attempt at resuscitation" D-dimer was elevated at 8.8. CTA of the chest was performed: No evidence for acute pulmonary embolic disease. Interval development of patchy areas of groundglass opacification. Findings are concerning for atypical/viral pneumonia, COVID-19 pneumonia can have this appearance. - Mortality Measure Prognosis:: Poor
[2020-05-20] MEDS: Acetaminophen 325 MG Tab PO PRN (20:41)
[2020-05-20] MEDS ORDERED: Iopamidol 755 Mg/ML 100 ML Bottle IVPUSH ONE (20:55)
[2020-05-20] MEDS ORDERED: Sodium Chloride 0.9% 45 ML IV SCH (21:00)
[2020-05-20] MEDS ORDERED: Potassium Chloride 20 MEQ Tab.ER PO ONE (21:10)
[2020-05-20] MEDS ORDERED: Trolamine Salicylate/Aloe Vera 10% Crm 85 GM Tube TOP PRN (21:16)
[2020-05-20] MEDS ORDERED: Sildenafil 20 MG Tab PO SCH (22:00)
[2020-05-20] MEDS ORDERED: Fluconazole 150 MG Tab PO ONE (22:15)
[2020-05-21] MEDS: Glycopyrrolate 15.6 MCG Cap.W.Dev Kit of 6 IH SCH ×3 (00:42→20:29)
[2020-05-21] MEDS ORDERED: Trolamine Salicylate/Aloe Vera 10% Crm 85 GM Tube TOP PRN (07:30)
[2020-05-21] MEDS: Metoprolol Succinate 50 MG Tab.ER PO SCH (08:30)
[2020-05-21] MEDS: Potassium Chloride 10 MEQ Tab.ER PO SCH (08:30)
[2020-05-21] MEDS: Pantoprazole 40 MG Tab.CR PO SCH (08:31)
[2020-05-21] MEDS: Levothyroxine 50 MCG Tab PO SCH (08:32)
[2020-05-21] MEDS: Acetaminophen 325 MG Tab PO PRN ×3 (08:36→21:51)
[2020-05-21] MEDS: Enoxaparin 40 MG/0.4 ML Syringe SUBCUT SCH (08:39)
[2020-05-21] MEDS: Trospium 20 MG Tab PO SCH ×2 (08:40→21:51)
[2020-05-21] MEDS: Cholecalciferol (Vitamin D3) 25 MCG Tab PO SCH (08:40)
[2020-05-21] MEDS: Dexamethasone 4 MG Tab PO SCH (08:40)
[2020-05-21] MEDS: Fluticasone Propionate Nasal Spray 16 GM Bottle NASBOTH SCH (08:41)
[2020-05-21] MEDS: Nystatin Susp 100,000 Unit/ML 5 ML Oral Syringe PO SCH ×4 (08:43→21:52)
[2020-05-21] MEDS: IPRATROPIUM 0.03% SCH ×3 (08:50→21:50)
[2020-05-21] MEDS: Sildenafil 20 MG Tab **PTOM PO SCH ×3 (08:50→21:51)
--- NOTE | 2020-05-21 09:28 | CT ---
"PROCEDURE INFORMATION: Exam: CT Angiography Chest With Contrast Exam date and time: 05/20/2020 8:56 PM Age: 80 years old Clinical indication: Abnormal findings; Abnormal diagnostic tests; Cough and shortness of breath; Patient HX: Covid, elevated d-dimer, hypoxemia TECHNIQUE: Imaging protocol: Computed tomographic angiography of the chest with intravenous contrast. 3D rendering (Not supervised by radiologist): MIP and/or 3D reconstructed images were created by the technologist. Radiation optimization: All CT scans at this facility use at least one of these dose optimization techniques: automated exposure control; mA and/or kV adjustment per patient size (includes targeted exams where dose is matched to clinical indication); or iterative reconstruction. Contrast material: ISOVIEW 370; Contrast volume: 100 ml; Contrast route: INTRAVENOUS (IV); COMPARISON: CT Ang Chest 04/27/2020 8:26 AM FINDINGS: Pulmonary arteries: Enlarged central pulmonary arteries suggest pulmonary artery hypertension. No evidence for acute pulmonary embolic disease. Aorta: Stable position of the thoracic aortic stent, extending from the aortic arch to the distal thoracic aorta. Stable appearance of the thoracic aortic stent graft. Lungs: Interval development of patchy areas of ground-glass opacification throughout the lungs bilaterally. This is superimposed on chronic changes of bronchiectasis and parenchymal scarring.Imaging features can be seen with COVID-19 pneumonia, though are nonspecific and can occur with a variety of infectious and noninfectious processes. (Reference: Nic) Pleural space: Unremarkable. No pneumothorax. No pleural effusion. Heart: Unremarkable. No cardiomegaly. No pericardial effusion. Lymph nodes: Unremarkable. No enlarged lymph nodes. [facility] | Final Radiology Report CONFIDENTIALITY STATEMENT This report is intended only for use by the referring physician, and only in accordance with law. If you received this in error, call [phone]. Page 2 of 2 Gallbladder and bile ducts: Pneumobilia. Gallstones in the gallbladder lumen without evidence for acute cholecystitis. Findings are similar to the prior study. Bones/joints: Unremarkable. No acute fracture. Soft tissues: Unremarkable. IMPRESSION: 1. No evidence for acute pulmonary embolic disease. 2. Interval development of patchy areas of ground-glass opacification. Findings are concerning for atypical/viral pneumonia, COVID-19 pneumonia can have this appearance. REFERENCES: Nic Upton, et al., [employer] Society of [place] Expert Consensus Statement on Reporting Chest CT Findings Related to COVID-19. Endorsed by the Society of Thoracic Radiology, the [place] [employer], and RSNA. Published October 15, 2019. Thank you for allowing us to participate in the care of your patient. Dictated and Authenticated by: Sharona Richard MD 05/20/2020 11:53 PM Central Time ([place] & [place]) [place]"
[2020-05-21] MEDS ORDERED: Loperamide 2 MG Cap PO PRN (10:08)
--- NOTE | 2020-05-21 10:25 | PCM.PN ---
- General Info Date of Service: 05/21/20 Admission Dx/Problem (Free Text): Admission Diagnosis/Problem Admission Diagnosis/Problem Viral pneumonia Subjective Update: Patient has had slight improvement overnight. She is agreed to get 2 units convalescent plasma. She is down to 2 L/min nasal cannula. She states she is trying to eat better this morning. She is having some loose stools. Functional Status: Reports: Pain Controlled - Review of Systems General: Reports: No Symptoms HEENT: Reports: No Symptoms Pulmonary: Reports: Shortness of Breath, Cough Cardiovascular: Reports: No Symptoms Gastrointestinal: Reports: No Symptoms Musculoskeletal: Reports: No Symptoms Neurological: Reports: No Symptoms Psychiatric: Reports: No Symptoms - Patient Data Vitals - Most Recent: Last Vital Signs Temp 98.4 F 05/21/20 07:59 Pulse 97 05/21/20 08:30 Resp 28 H 05/21/20 07:59 BP 154/76 H 05/21/20 08:30 Pulse Ox 91 L 05/21/20 09:02 Weight - Most Recent: 53.977 kg I&O - Last 24 Hours: Intake & Output 05/20/20 05/21/20 05/21/20 22:59 06:59 14:59 Intake Total 0 347 Output Total 450 Balance 0 -103 Lab Results Last 24 Hours: Laboratory Results - last 24 hr 05/20/20 05/20/20 05/20/20 Range/Units 17:41 17:46 17:46 WBC (3.98-10.04) K/mm3 RBC (3.98-5.22) M/mm3 Hgb (11.2-15.7) gm/dl Hct (34.1-44.9) % MCV (79.4-94.8) fl MCH (25.6-32.2) pg MCHC (32.2-35.5) g/dl RDW Std Deviation (36.4-46.3) fL Plt Count (182-369) K/mm3 MPV (9.4-12.3) fl Neut % (Auto) (34.0-71.1) % Lymph % (Auto) (19.3-51.7) % [place] % (Auto) (4.7-12.5) % Eos % (Auto) (0.7-5.8) Baso % (Auto) (0.1-1.2) % Neut # (Auto) (1.56-6.13) K/mm3 Lymph # (Auto) (1.18-3.74) K/mm3 [place] # (Auto) (0.24-0.36) K/mm3 Eos # (Auto) (0.04-0.36) K/mm3 Baso # (Auto) (0.01-0.08) K/mm3 PT (9.7-12.0) SECONDS INR APTT 26.5 (21.7-31.4) SECONDS D-Dimer, Quantitative (0.19-0.50) mg/L Puncture Site Lt radial ABG pH 7.41 (7.35-7.45) ABG pCO2 42.4 (35.0-45.0) mmHg ABG pO2 55.0 L (80.0-100.0) mmHg ABG HCO3 26.3 H (22.0-26.0) meq/L ABG O2 Saturation 87.5 L (96.0-97.0) % ABG Base Excess 1.9 (-2-2.0) Cullen Test Positive A-a Gradient 120 mmHg O2 Delivery Device Nasal cannula Oxygen Flow Rate 3.0 FiO2 32.00 (21.00-100.00) % Sodium (136-145) mEq/L Potassium (3.5-5.1) mEq/L Chloride (98-107) mEq/L Carbon Dioxide (21-32) mEq/L Anion Gap (5-15) BUN (7-18) mg/dL Creatinine (0.55-1.02) mg/dL Est Cr Clr Drug Dosing mL/min Estimated GFR (MDRD) (>60) mL/min BUN/Creatinine Ratio (14-18) Glucose (83-115) mg/dL Lactic Acid (0.4-2.0) mmol/L Calcium (8.5-10.1) mg/dL Ferritin 392 H (8-252) ng/ml Total Bilirubin (0.2-1.0) mg/dL AST (15-37) U/L ALT (14-59) U/L Alkaline Phosphatase (46-116) U/L Lactate Dehydrogenase (81-234) U/L C-Reactive Protein (<1.0) mg/dL Total Protein (6.4-8.2) g/dl Albumin (3.4-5.0) g/dl Globulin gm/dL Albumin/Globulin Ratio (1-2) Urine Color (Yellow) Urine Appearance (Clear) Urine pH (5.0-8.0) Ur Specific [place] (1.005-1.030) Urine Protein (Negative) Urine Glucose (UA) (Negative) Urine Ketones (Negative) Urine Occult Blood (Negative) Urine Nitrite (Negative) Urine Bilirubin (Negative) Urine Urobilinogen (0.2-1.0) Ur Leukocyte Esterase (Negative) Urine RBC (0-5) /hpf Urine WBC (0-5) /hpf Ur Squamous Epith Cells (0-5) /hpf Urine Bacteria (FEW) /hpf Urine Mucus (FEW) /hpf 05/20/20 05/20/20 05/20/20 Range/Units 17:46 17:46 17:46 WBC (3.98-10.04) K/mm3 RBC (3.98-5.22) M/mm3 Hgb (11.2-15.7) gm/dl Hct (34.1-44.9) % MCV (79.4-94.8) fl MCH (25.6-32.2) pg MCHC (32.2-35.5) g/dl RDW Std Deviation (36.4-46.3) fL Plt Count (182-369) K/mm3 MPV (9.4-12.3) fl Neut % (Auto) (34.0-71.1) % Lymph % (Auto) (19.3-51.7) % [place] % (Auto) (4.7-12.5) % Eos % (Auto) (0.7-5.8) Baso % (Auto) (0.1-1.2) % Neut # (Auto) (1.56-6.13) K/mm3 Lymph # (Auto) (1.18-3.74) K/mm3 [place] # (Auto) (0.24-0.36) K/mm3 Eos # (Auto) (0.04-0.36) K/mm3 Baso # (Auto) (0.01-0.08) K/mm3 PT (9.7-12.0) SECONDS INR APTT (21.7-31.4) SECONDS D-Dimer, Quantitative 8.81 H (0.19-0.50) mg/L Puncture Site ABG pH (7.35-7.45) ABG pCO2 (35.0-45.0) mmHg ABG pO2 (80.0-100.0) mmHg ABG HCO3 (22.0-26.0) meq/L ABG O2 Saturation (96.0-97.0) % ABG Base Excess (-2-2.0) Cullen Test A-a Gradient mmHg O2 Delivery Device Oxygen Flow Rate FiO2 (21.00-100.00) % Sodium 145 (136-145) mEq/L Potassium 3.1 L (3.5-5.1) mEq/L Chloride 108 H (98-107) mEq/L Carbon Dioxide 25 (21-32) mEq/L Anion Gap 15.1 H (5-15) BUN 18 (7-18) mg/dL Creatinine 0.8 (0.55-1.02) mg/dL Est Cr Clr Drug Dosing 42.88 mL/min Estimated GFR (MDRD) > 60 (>60) mL/min BUN/Creatinine Ratio 22.5 H (14-18) Glucose 115 (83-115) mg/dL Lactic Acid 1.4 (0.4-2.0) mmol/L Calcium 8.8 (8.5-10.1) mg/dL Ferritin (8-252) ng/ml Total Bilirubin 0.6 (0.2-1.0) mg/dL AST 30 (15-37) U/L ALT 39 (14-59) U/L Alkaline Phosphatase 127 H (46-116) U/L Lactate Dehydrogenase 471 H (81-234) U/L C-Reactive Protein 3.2 H* (<1.0) mg/dL Total Protein 7.0 (6.4-8.2) g/dl Albumin 2.5 L (3.4-5.0) g/dl Globulin 4.5 gm/dL Albumin/Globulin Ratio 0.6 L (1-2) Urine Color (Yellow) Urine Appearance (Clear) Urine pH (5.0-8.0) Ur Specific [place] (1.005-1.030) Urine Protein (Negative) Urine Glucose (UA) (Negative) Urine Ketones (Negative) Urine Occult Blood (Negative) Urine Nitrite (Negative) Urine Bilirubin (Negative) Urine Urobilinogen (0.2-1.0) Ur Leukocyte Esterase (Negative) Urine RBC (0-5) /hpf Urine WBC (0-5) /hpf Ur Squamous Epith Cells (0-5) /hpf Urine Bacteria (FEW) /hpf Urine Mucus (FEW) /hpf 05/20/20 05/20/20 05/20/20 Range/Units 17:46 17:46 21:09 WBC 5.94 (3.98-10.04) K/mm3 RBC 4.58 (3.98-5.22) M/mm3 Hgb 12.6 (11.2-15.7) gm/dl Hct 39.8 (34.1-44.9) % MCV 86.9 (79.4-94.8) fl MCH 27.5 (25.6-32.2) pg MCHC 31.7 L (32.2-35.5) g/dl RDW Std Deviation 58.4 H (36.4-46.3) fL Plt Count 160 L (182-369) K/mm3 MPV 9.7 (9.4-12.3) fl Neut % (Auto) 78.0 H (34.0-71.1) % Lymph % (Auto) 12.6 L (19.3-51.7) % [place] % (Auto) 8.9 (4.7-12.5) % Eos % (Auto) 0.3 L (0.7-5.8) Baso % (Auto) 0.0 L (0.1-1.2) % Neut # (Auto) 4.63 (1.56-6.13) K/mm3 Lymph # (Auto) 0.75 L (1.18-3.74) K/mm3 [place] # (Auto) 0.53 H (0.24-0.36) K/mm3 Eos # (Auto) 0.02 L (0.04-0.36) K/mm3 Baso # (Auto) 0.00 L (0.01-0.08) K/mm3 PT 10.5 (9.7-12.0) SECONDS INR 0.98 APTT (21.7-31.4) SECONDS D-Dimer, Quantitative (0.19-0.50) mg/L Puncture Site ABG pH (7.35-7.45) ABG pCO2 (35.0-45.0) mmHg ABG pO2 (80.0-100.0) mmHg ABG HCO3 (22.0-26.0) meq/L ABG O2 Saturation (96.0-97.0) % ABG Base Excess (-2-2.0) Cullen Test A-a Gradient mmHg O2 Delivery Device Oxygen Flow Rate FiO2 (21.00-100.00) % Sodium (136-145) mEq/L Potassium (3.5-5.1) mEq/L Chloride (98-107) mEq/L Carbon Dioxide (21-32) mEq/L Anion Gap (5-15) BUN (7-18) mg/dL Creatinine (0.55-1.02) mg/dL Est Cr Clr Drug Dosing mL/min Estimated GFR (MDRD) (>60) mL/min BUN/Creatinine Ratio (14-18) Glucose (83-115) mg/dL Lactic Acid (0.4-2.0) mmol/L Calcium (8.5-10.1) mg/dL Ferritin (8-252) ng/ml Total Bilirubin (0.2-1.0) mg/dL AST (15-37) U/L ALT (14-59) U/L Alkaline Phosphatase (46-116) U/L Lactate Dehydrogenase (81-234) U/L C-Reactive Protein (<1.0) mg/dL Total Protein (6.4-8.2) g/dl Albumin (3.4-5.0) g/dl Globulin gm/dL Albumin/Globulin Ratio (1-2) Urine Color Yellow (Yellow) Urine Appearance Clear (Clear) Urine pH 7.0 (5.0-8.0) Ur Specific [place] 1.025 (1.005-1.030) Urine Protein 2+ H (Negative) Urine Glucose (UA) Negative (Negative) Urine Ketones Negative (Negative) Urine Occult Blood Trace-lysed H (Negative) Urine Nitrite Negative (Negative) Urine Bilirubin Negative (Negative) Urine Urobilinogen 0.2 (0.2-1.0) Ur Leukocyte Esterase Negative (Negative) Urine RBC Not seen (0-5) /hpf Urine WBC 0-5 (0-5) /hpf Ur Squamous Epith Cells 0-5 (0-5) /hpf Urine Bacteria Rare (FEW) /hpf Urine Mucus Not seen (FEW) /hpf Med Orders - Current: Current Medications Acetaminophen (Tylenol) 650 mg PO Q4H PRN PRN Reason: Pain (Mild 1-3)/fever Last Admin: 05/21/20 08:36 Dose: 650 mg Documented by: Albuterol (Proventil Hfa) 0 gm INH Q2H PRN PRN Reason: Shortness of Breath Cholecalciferol (Vitamin D3) 50 mcg PO DAILY [facility] Last Admin: 05/21/20 08:40 Dose: 50 mcg Documented by: Dexamethasone (Dexamethasone) 6 mg PO DAILY [facility] Stop: 05/23/20 09:01 Last Admin: 05/21/20 08:40 Dose: 6 mg Documented by: Enoxaparin Sodium (Lovenox) 40 mg SUBCUT DAILY [facility] Last Admin: 05/21/20 08:39 Dose: 40 mg Documented by: Fluticasone Propionate (Flonase) 0 gm NASBOTH DAILY [facility] Last Admin: 05/21/20 08:41 Dose: 1 spray Documented by: Glycopyrrolate (Seebri Neohaler) 15.6 mcg IH BID [facility] Last Admin: 05/21/20 08:50 Dose: 1 cap Documented by: Remdesivir 100 mg/ Sodium (Chloride) 100 mls @ 100 mls/hr IV Q24H [facility] Stop: 05/24/20 18:59 Sodium Chloride (Normal Saline) 45 mls @ 40 mls/hr IV ASDIRECTED [facility] Levothyroxine Sodium (Synthroid) 50 mcg PO DAILY [facility] Last Admin: 05/21/20 08:32 Dose: 50 mcg Documented by: Loperamide HCl (Imodium) 2 mg PO Q6H PRN PRN Reason: Diarrhea Last Admin: 05/21/20 10:23 Dose: 2 mg Documented by: Metoprolol Succinate (Toprol Xl) 50 mg PO DAILY [facility] Last Admin: 05/21/20 08:30 Dose: 50 mg Documented by: Ipratropium 0.03% (Nasal Weston Ptom) 2 spray .XX TID [facility] Last Admin: 05/21/20 08:50 Dose: Not Given Documented by: Nystatin (Nystatin Oral Syringe) 500,000 unit PO QID [facility] Last Admin: 05/21/20 08:43 Dose: 500,000 unit Documented by: Ondansetron HCl (Zofran) 4 mg IV Q4H PRN PRN Reason: Nausea/Vomiting Pantoprazole Sodium (Protonix) 40 mg PO DAILY [facility] Last Admin: 05/21/20 08:31 Dose: 40 mg Documented by: Potassium Chloride (Klor-Con 10) 10 meq PO DAILY [facility] Last Admin: 05/21/20 08:30 Dose: 10 meq Documented by: Sildenafil Citrate (Revatio) 20 mg PO TID [facility] Last Admin: 05/21/20 08:50 Dose: Not Given Documented by: Sodium Chloride (Saline Flush) 10 ml FLUSH ASDIRECTED PRN PRN Reason: Keep Vein Open Sodium Chloride (Saline Flush) 10 ml FLUSH ONETIME PRN PRN Reason: Keep Vein Open Trolamine Salicylate (Aspercreme 10%) 0 gm TOP Q6H PRN PRN Reason: Pain Trospium (Sanctura) 20 mg PO BID [facility] Last Admin: 05/21/20 08:40 Dose: 20 mg Documented by: Discontinued Medications Fluconazole (Diflucan) 150 mg PO ONETIME ONE Stop: 05/20/20 22:16 Last Admin: 05/20/20 21:32 Dose: 150 mg Documented by: Remdesivir 200 mg/ Sodium (Chloride) 250 mls @ 250 mls/hr IV ONETIME ONE Stop: 05/20/20 18:59 Last Admin: 05/20/20 19:32 Dose: 250 mls/hr Documented by: Iopamidol (Isovue-370 (76%)) 100 ml IVPUSH ONETIME ONE Stop: 05/20/20 20:56 Last Admin: 05/20/20 22:34 Dose: 100 ml Documented by: Potassium Chloride (Klor-Con M20) 40 meq PO ONETIME ONE Stop: 05/20/20 21:11 Last Admin: 05/20/20 20:45 Dose: 40 meq Documented by: Sildenafil Citrate (Revatio) 20 mg PO TID [facility] Last Admin: 05/20/20 22:10 Dose: Not Given Documented by: Trolamine Salicylate (Aspercreme 10%) 0 gm TOP Q1H PRN PRN Reason: Pain - Exam Quality Assessment: Supplemental Oxygen General: Alert, Oriented HEENT: Pupils Equal, Mucous Membr. Moist/[place] Neck: Supple Lungs: Normal Respiratory Effort, Rales (Mild bibasilar rales) Cardiovascular: Regular Rate, Regular Rhythm GI/Abdominal Exam: Normal Bowel Sounds, Soft, Non-Tender, No Distention Extremities: Normal Inspection, Normal Range of Motion, Non-Tender, No Pedal Edema, Normal Capillary Refill Skin: Warm, Dry, Intact Neurological: No New Focal Deficit Sepsis Event Note - Evaluation Sepsis Screening Result: No Definite Risk - Focused Exam Vital Signs: Vital Signs Temp Pulse Resp BP Pulse Ox Pulse Ox 05/21/20 09:02 91 L 05/21/20 08:30 97 154/76 H 05/21/20 07:59 98.4 F 99 28 H 154/76 H 89 L 05/21/20 06:12 96 05/21/20 06:10 98 05/21/20 02:58 97.7 F 94 20 135/67 90 L 05/20/20 23:15 97.9 F 79 20 126/81 97 - Problem List & Annotations (1) Pneumonia due to COVID-19 virus SNOMED Code(s): 497903185106702981 Code(s): U07.1 - COVID-19; J12.89 - OTHER VIRAL PNEUMONIA Status: Acute Current Visit: Yes (2) Pulmonary hypertension SNOMED Code(s): 34800521 Code(s): I27.20 - PULMONARY HYPERTENSION, UNSPECIFIED Status: Acute Current Visit: No (3) CHF (congestive heart failure) SNOMED Code(s): 78951669 Code(s): I50.9 - HEART FAILURE, UNSPECIFIED Status: Acute Current Visit: Yes (4) Thrush, oral SNOMED Code(s): 38074651 Code(s): B37.0 - CANDIDAL STOMATITIS Status: Acute Current Visit: Yes (5) Vaginal thrush SNOMED Code(s): 32311314 Code(s): B37.3 - CANDIDIASIS OF VULVA AND VAGINA Status: Acute Current Visit: Yes (6) Pulmonary fibrosis SNOMED Code(s): 96358419 Code(s): J84.10 - PULMONARY FIBROSIS, UNSPECIFIED Status: Acute Current Visit: Yes (7) Bronchiectasis SNOMED Code(s): 08838298 Code(s): J47.9 - BRONCHIECTASIS, UNCOMPLICATED Status: Acute Current Visit: Yes - Problem List Review Problem List Initiated/Reviewed/Updated: Yes - My Orders Last 24 Hours: My Active Orders 05/20/20 15:00 Ipratropium [Atrovent 0.03% Nasal [place]] 2 spray .XX TID 05/20/20 16:15 Chest Physiotherapy [RT Chest Physiotherapy] [RC] ASDIRECTED RT Incentive Spirometry [RC] ASDIRECTED 05/20/20 Dinner Regular Diet [DIET] 05/20/20 17:03 Patient Status [ADT] Routine Cardiac Monitoring [RC] . DIRECTED Oxygen Therapy [RC] PRN Up With Assistance [RC] ASDIRECTED VTE/DVT Education [RC] QSHIFT Vital Signs [RC] Q4HR Consult to Welder Tech [CONS] Routine PT Evaluation and Treatment [CONS] Routine Acetaminophen [TylenoL] 650 mg PO Q4H PRN Ondansetron [Zofran] 4 mg IV Q4H PRN Sodium Chloride 0.9% [Saline Flush] 10 ml FLUSH ASDIRECTED PRN Isolation [COMM] Stat Peripheral IV Insertion Adult [OM.PC] Routine RT Acapella [RESPCARE] Routine Resuscitation Status Routine 05/20/20 17:06 Pulse Oximetry [RC] CONTINUOUS 05/20/20 17:08 Positioning, Patient [RC] ASDIRECTED 05/20/20 17:10 CULTURE SPUTUM + SMEAR [RM] Routine 05/20/20 17:46 CULTURE BLOOD [BC] Stat PROCALCITONIN [REF] Stat 05/20/20 17:56 CULTURE BLOOD [BC] Stat 05/20/20 18:07 Blood Culture x2 Reflex Set [OM.PC] Stat 05/20/20 18:31 RT Post Treatment Assessment [RC] Click to Edit RT Pre-Treatment Assessment [RC] Click to Edit Albuterol [Proventil HFA] See Dose Instructions INH Q2H PRN 05/20/20 20:55 Sodium Chloride 0.9% [Saline Flush] 10 ml FLUSH ONETIME PRN 05/20/20 21:00 Glycopyrrolate [Seebri Neohaler] 15.6 mcg IH BID Sodium Chloride 0.9% [Normal Saline] 45 ml IV ASDIRECTED 05/21/20 05:11 Chest 1V Frontal [CR] AM 05/21/20 07:16 Sildenafil [Revatio] 20 mg PO TID 05/21/20 07:30 Trolamine Salicylate/Aloe Vera [Aspercreme 10%] 0 gm TOP Q6H PRN 05/21/20 09:00 Cholecalciferol (Vitamin D3) [Vitamin D3] 50 mcg PO DAILY Enoxaparin [Lovenox] 40 mg SUBCUT DAILY Fluticasone Propionate [Flonase] 0 gm NASBOTH DAILY Levothyroxine [Synthroid] 50 mcg PO DAILY Metoprolol Succinate [Toprol XL] 50 mg PO DAILY Nystatin [Nystatin Oral Syringe] 500,000 unit PO QID Pantoprazole [ProTONIX] 40 mg PO DAILY Potassium Chloride [Klor-Con 10] 10 meq PO DAILY Trospium [Sanctura] 20 mg PO BID dexAMETHasone 6 mg PO DAILY 05/21/20 09:59 Verify Patient Consent Obtain [RC] ASDIRECTED ABO/RH TYPE [BBK] Routine FRESH FROZEN PLASMA [BBK] Routine Transfuse Fresh Frozen Plasma [COMM] Routine 05/21/20 10:08 Loperamide [Imodium] 2 mg PO Q6H PRN 05/21/20 18:00 Remdesivir (Eua) [Remdesivir (EUA)] 100 mg Sodium Chloride 0.9% [Normal Saline] 100 ml IV Q24H 05/22/20 05:11 C-REACTIVE PROTEIN [CHEM] AM CBC WITH AUTO DIFF [HEME] AM CMP [COMPREHENSIVE METABOLIC PN,CMP] [CHEM] AM DD [D-DIMER QUANTITATIVE] [COAG] AM MAGNESIUM [CHEM] AM PHOSPHORUS [CHEM] AM - Plan Plan:: Assessment 05/20/2020 * 78-year-old female with known Covid and pulmonary fibrosis with worsening oxygenation and increasing D-dimer. * Recent hospitalization for sepsis on April 27, 2020. D-dimer at that time was 17. * Oral thrush and vaginal candidiasis * History of pulmonary hypertension, pulmonary fibrosis, bronchiectasis, hypertension, congestive heart failure, severe valvular disease involving both the aortic valve and mitral valve, abdominal aortic aneurysm with endovascular grafting Unfortunate patient is high risk for complications secondary to her multiple medical problems which include cardiac and respiratory disease. Patient is in her 80s, is on oxygen at baseline, heart failure and hypertension, has poor appetite, multiple medical problems. 05/21/2020 * Pneumonia due to COVID-19 * Pulmonary fibrosis and interstitial lung disease * Bronchiectasis * Oral and vaginal candidiasis * Pulmonary hypertension Patient has had an uneventful night and even some improvement in her oxygen saturations. She is in agreement to getting convalescent plasma. She was started on remdesivir yesterday. No antibiotics at this time. She was also started on nystatin and Diflucan for her candidiasis. CT of the chest performed yesterday was negative for pulmonary embolism. She did have an interval development of patchy areas of groundglass opacification compared to April 27. This is consistent with viral pneumonia. Plan * Admit to floor on telemetry and continuous pulse ox * Remdesivir day 2 of 5 * Dexamethasone day 1 of 3. She received 7 doses prior to admission * 2 units convalescent plasma - I spoke with Maida to provide information about convalescent plasma. I offered the "fax sheet for patients and parents/caregivers, for COVID-19 convalescent plasma to read and review. I stated that therapy has been approved by an emergency use authorization process and has not fully been FDA reviewed or approved. I shared potential risks from the therapy including transmission of blood borne pathogen such as HIV and hepatitis C, allergic and transfusion related reactions, post transfusion purpura. Additionally theoretical risks include a phenomenon called antibodydependent enhancement of infection such as is seen in dengue or attenuation of an immune response that may make patients more susceptible to reinfection. * Nystatin swish and spit 4 times daily * Hold off for antibiotics at this time. * Follow CBC, CMP, D-dimer, CRP, mag, Phos daily or every other day starting 05/22/2020 * Continue FiO2 to keep SPO2 between 88 and 94%. Currently on 2 L. She is on 1 L at home. * VTE prophylaxis with Lovenox * CODE STATUS: DO NOT INTUBATE but wants "attempt at resuscitation" D-dimer was elevated at 8.8. CTA of the chest was performed: No evidence for acute pulmonary embolic disease. Interval development of patchy areas of groundglass opacification. Findings are concerning for atypical/viral pneumonia, COVID-19 pneumonia can have this appearance.
--- NOTE | 2020-05-21 11:19 | CR ---
PROCEDURE INFORMATION: Exam: XR Chest, 1 View Exam date and time: 05/21/2020 9:10 AM Age: 80 years old Clinical indication: Condition or disease; Patient HX: Covid + TECHNIQUE: Imaging protocol: XR of the chest Views: 1 view. COMPARISON: CR Chest 1V Frontal 04/27/2020 6:27 AM FINDINGS: Lungs: The lung volumes are decreased with vascular crowding secondary to elevation of the diaphragms which is likely on the basis of poor inspiratory effort. Ground-glass airspace disease within the mid and lower lung matthew bilaterally has progressed since the prior examination. Pleural space: Unremarkable. No pleural effusion. No pneumothorax. Heart/Mediastinum: Unremarkable. No cardiomegaly. Diaphragm: There is an elevated right hemidiaphragm present on the current examination. Bones/joints: Status post thoracic aortic endograft. Organs: Pneumobilia. IMPRESSION: 1. Ground-glass airspace disease within the mid and lower lung matthew bilaterally has progressed since the prior examination. 2. Pneumobilia. Thank you for allowing us to participate in the care of your patient. Dictated and Authenticated by: Anirudh Virgen MD 05/21/2020 10:50 AM Central Time ([place] & [place]) [place]
[2020-05-21] MEDS ORDERED: Sodium Chloride 0.9% 250 ML IV SCH (13:00)
[2020-05-21] MEDS: REMDESIVIR (EUA) 100 MG in Sodium Chloride 0.9% 100 ML IV SCH (17:20)
[2020-05-22] MEDS: Glycopyrrolate 15.6 MCG Cap.W.Dev Kit of 6 IH SCH ×2 (08:22→20:19)
[2020-05-22] MEDS: IPRATROPIUM 0.03% SCH ×3 (08:24→22:03)
[2020-05-22] MEDS: Cholecalciferol (Vitamin D3) 25 MCG Tab PO SCH (08:29)
[2020-05-22] MEDS: Trospium 20 MG Tab PO SCH ×2 (08:29→22:06)
[2020-05-22] MEDS: Dexamethasone 4 MG Tab PO SCH (08:29)
[2020-05-22] MEDS: Pantoprazole 40 MG Tab.CR PO SCH (08:31)
[2020-05-22] MEDS: Metoprolol Succinate 50 MG Tab.ER PO SCH (08:32)
[2020-05-22] MEDS: Sildenafil 20 MG Tab **PTOM PO SCH ×3 (08:37→22:06)
[2020-05-22] MEDS: Levothyroxine 50 MCG Tab PO SCH (08:37)
[2020-05-22] MEDS: Nystatin Susp 100,000 Unit/ML 5 ML Oral Syringe PO SCH ×4 (08:38→22:05)
[2020-05-22] MEDS: Enoxaparin 40 MG/0.4 ML Syringe SUBCUT SCH ×2 (08:38→22:04)
[2020-05-22] MEDS: Potassium Chloride 10 MEQ Tab.ER PO SCH (08:39)
--- NOTE | 2020-05-22 09:12 | PCM.PN ---
- General Info Date of Service: 05/22/20 Admission Dx/Problem (Free Text): Admission Diagnosis/Problem Admission Diagnosis/Problem Viral pneumonia Subjective Update: Patient continues to have shortness of breath and cough. She states it is no different than yesterday. She still has a poor appetite and is only eating small amounts. No bowel movement since 05/21/2020 Functional Status: Reports: Pain Controlled - Review of Systems General: Reports: Fatigue HEENT: Reports: Sore Throat Pulmonary: Reports: Shortness of Breath, Cough Cardiovascular: Reports: No Symptoms Gastrointestinal: Reports: No Symptoms Psychiatric: Reports: No Symptoms - Patient Data Vitals - Most Recent: Last Vital Signs Temp 97.9 F 05/22/20 03:03 Pulse 20 L 05/22/20 08:32 Resp 28 H 05/22/20 03:03 BP 195/91 H 05/22/20 08:32 Pulse Ox 91 L 05/22/20 08:25 Weight - Most Recent: 54.295 kg I&O - Last 24 Hours: Intake & Output 05/21/20 05/22/20 05/22/20 22:59 06:59 14:59 Intake Total 2203 400 Output Total 825 Balance 2203 -425 Lab Results Last 24 Hours: Laboratory Results - last 24 hr 05/20/20 05/20/20 05/22/20 Range/Units 17:46 17:46 04:36 WBC 3.12 L (3.98-10.04) K/mm3 RBC 4.25 (3.98-5.22) M/mm3 Hgb 11.4 (11.2-15.7) gm/dl Hct 36.7 (34.1-44.9) % MCV 86.4 (79.4-94.8) fl MCH 26.8 (25.6-32.2) pg MCHC 31.1 L (32.2-35.5) g/dl RDW Std Deviation 57.6 H (36.4-46.3) fL Plt Count 131 L (182-369) K/mm3 MPV 9.1 L (9.4-12.3) fl Neut % (Auto) 77.6 H (34.0-71.1) % Lymph % (Auto) 10.6 L (19.3-51.7) % Emery % (Auto) 11.5 (4.7-12.5) % Eos % (Auto) 0 L (0.7-5.8) Baso % (Auto) 0.0 L (0.1-1.2) % Neut # (Auto) 2.42 (1.56-6.13) K/mm3 Lymph # (Auto) 0.33 L (1.18-3.74) K/mm3 Emery # (Auto) 0.36 (0.24-0.36) K/mm3 Eos # (Auto) 0.00 L (0.04-0.36) K/mm3 Baso # (Auto) 0.00 L (0.01-0.08) K/mm3 D-Dimer, Quantitative (0.19-0.50) mg/L Sodium (136-145) mEq/L Potassium (3.5-5.1) mEq/L Chloride (98-107) mEq/L Carbon Dioxide (21-32) mEq/L Anion Gap (5-15) BUN (7-18) mg/dL Creatinine (0.55-1.02) mg/dL Est Cr Clr Drug Dosing mL/min Estimated GFR (MDRD) (>60) mL/min BUN/Creatinine Ratio (14-18) Glucose (83-115) mg/dL Calcium (8.5-10.1) mg/dL Phosphorus (2.6-4.7) mg/dL Magnesium (1.8-2.4) mg/dl Total Bilirubin (0.2-1.0) mg/dL AST (15-37) U/L ALT (14-59) U/L Alkaline Phosphatase (46-116) U/L C-Reactive Protein (<1.0) mg/dL Total Protein (6.4-8.2) g/dl Albumin (3.4-5.0) g/dl Globulin gm/dL Albumin/Globulin Ratio (1-2) Procalcitonin <0.05 (<0.10) ng/mL Blood Type O POSITIVE 05/22/20 05/22/20 Range/Units 04:36 04:36 WBC (3.98-10.04) K/mm3 RBC (3.98-5.22) M/mm3 Hgb (11.2-15.7) gm/dl Hct (34.1-44.9) % MCV (79.4-94.8) fl MCH (25.6-32.2) pg MCHC (32.2-35.5) g/dl RDW Std Deviation (36.4-46.3) fL Plt Count (182-369) K/mm3 MPV (9.4-12.3) fl Neut % (Auto) (34.0-71.1) % Lymph % (Auto) (19.3-51.7) % Emery % (Auto) (4.7-12.5) % Eos % (Auto) (0.7-5.8) Baso % (Auto) (0.1-1.2) % Neut # (Auto) (1.56-6.13) K/mm3 Lymph # (Auto) (1.18-3.74) K/mm3 Emery # (Auto) (0.24-0.36) K/mm3 Eos # (Auto) (0.04-0.36) K/mm3 Baso # (Auto) (0.01-0.08) K/mm3 D-Dimer, Quantitative 8.66 H (0.19-0.50) mg/L Sodium 145 (136-145) mEq/L Potassium 3.4 L (3.5-5.1) mEq/L Chloride 109 H (98-107) mEq/L Carbon Dioxide 27 (21-32) mEq/L Anion Gap 12.4 (5-15) BUN 16 (7-18) mg/dL Creatinine 0.7 (0.55-1.02) mg/dL Est Cr Clr Drug Dosing 49.01 mL/min Estimated GFR (MDRD) > 60 (>60) mL/min BUN/Creatinine Ratio 22.9 H (14-18) Glucose 128 H (83-115) mg/dL Calcium 8.7 (8.5-10.1) mg/dL Phosphorus 2.7 (2.6-4.7) mg/dL Magnesium 1.3 L (1.8-2.4) mg/dl Total Bilirubin 0.5 (0.2-1.0) mg/dL AST 25 (15-37) U/L ALT 34 (14-59) U/L Alkaline Phosphatase 123 H (46-116) U/L C-Reactive Protein 11.8 H* (<1.0) mg/dL Total Protein 6.5 (6.4-8.2) g/dl Albumin 2.3 L (3.4-5.0) g/dl Globulin 4.2 gm/dL Albumin/Globulin Ratio 0.6 L (1-2) Procalcitonin (<0.10) ng/mL Blood Type Chin Results Last 24 Hours: Microbiology 05/20/20 17:56 Aerobic Blood Culture - Preliminary Blood - Venous NO GROWTH AFTER 1 DAY Anaerobic Blood Culture - Preliminary NO GROWTH AFTER 1 DAY 05/20/20 17:46 Aerobic Blood Culture - Preliminary Blood NO GROWTH AFTER 1 DAY Anaerobic Blood Culture - Preliminary NO GROWTH AFTER 1 DAY Med Orders - Current: Current Medications Acetaminophen (Tylenol) 650 mg PO Q4H PRN PRN Reason: Pain (Mild 1-3)/fever Last Admin: 05/21/20 21:51 Dose: 650 mg Documented by: Albuterol (Proventil Hfa) 0 gm INH Q2H PRN PRN Reason: Shortness of Breath Cholecalciferol (Vitamin D3) 50 mcg PO DAILY [facility] Last Admin: 05/22/20 08:29 Dose: 50 mcg Documented by: Dexamethasone (Dexamethasone) 6 mg PO DAILY [facility] Stop: 05/23/20 09:01 Last Admin: 05/22/20 08:29 Dose: 6 mg Documented by: Enoxaparin Sodium (Lovenox) 40 mg SUBCUT DAILY [facility] Last Admin: 05/22/20 08:38 Dose: 40 mg Documented by: Fluticasone Propionate (Flonase) 0 gm NASBOTH DAILY [facility] Last Admin: 05/21/20 08:41 Dose: 1 spray Documented by: Glycopyrrolate (Seebri Neohaler) 15.6 mcg IH BID [facility] Last Admin: 05/22/20 08:22 Dose: 1 cap Documented by: Remdesivir 100 mg/ Sodium (Chloride) 100 mls @ 100 mls/hr IV Q24H [facility] Stop: 05/24/20 18:59 Last Admin: 05/21/20 17:20 Dose: 100 mls/hr Documented by: Sodium Chloride (Normal Saline) 45 mls @ 40 mls/hr IV ASDIRECTED [facility] Levothyroxine Sodium (Synthroid) 50 mcg PO DAILY [facility] Last Admin: 05/22/20 08:37 Dose: 50 mcg Documented by: Loperamide HCl (Imodium) 2 mg PO Q6H PRN PRN Reason: Diarrhea Last Admin: 05/21/20 10:23 Dose: 2 mg Documented by: Metoprolol Succinate (Toprol Xl) 50 mg PO DAILY [facility] Last Admin: 05/22/20 08:32 Dose: 50 mg Documented by: Ipratropium 0.03% (Nasal Sidney Ptom) 2 spray .XX TID [facility] Last Admin: 05/22/20 08:24 Dose: Not Given Documented by: Nystatin (Nystatin Oral Syringe) 500,000 unit PO QID [facility] Last Admin: 05/22/20 08:38 Dose: 500,000 unit Documented by: Ondansetron HCl (Zofran) 4 mg IV Q4H PRN PRN Reason: Nausea/Vomiting Pantoprazole Sodium (Protonix) 40 mg PO DAILY [facility] Last Admin: 05/22/20 08:31 Dose: 40 mg Documented by: Potassium Chloride (Klor-Con 10) 10 meq PO DAILY [facility] Last Admin: 05/22/20 08:39 Dose: 10 meq Documented by: Sildenafil Citrate (Revatio) 20 mg PO TID [facility] Last Admin: 05/22/20 08:37 Dose: Not Given Documented by: Sodium Chloride (Saline Flush) 10 ml FLUSH ASDIRECTED PRN PRN Reason: Keep Vein Open Sodium Chloride (Saline Flush) 10 ml FLUSH ONETIME PRN PRN Reason: Keep Vein Open Trolamine Salicylate (Aspercreme 10%) 0 gm TOP Q6H PRN PRN Reason: Pain Trospium (Sanctura) 20 mg PO BID [facility] Last Admin: 05/22/20 08:29 Dose: 20 mg Documented by: Discontinued Medications Fluconazole (Diflucan) 150 mg PO ONETIME ONE Stop: 05/20/20 22:16 Last Admin: 05/20/20 21:32 Dose: 150 mg Documented by: Remdesivir 200 mg/ Sodium (Chloride) 250 mls @ 250 mls/hr IV ONETIME ONE Stop: 05/20/20 18:59 Last Admin: 05/20/20 19:32 Dose: 250 mls/hr Documented by: Sodium Chloride (Normal Saline) 250 mls @ 100 mls/hr IV ASDIRECTED [facility] Stop: 05/21/20 23:00 Last Admin: 05/21/20 13:36 Dose: 100 mls/hr Documented by: Iopamidol (Isovue-370 (76%)) 100 ml IVPUSH ONETIME ONE Stop: 05/20/20 20:56 Last Admin: 05/20/20 22:34 Dose: 100 ml Documented by: Potassium Chloride (Klor-Con M20) 40 meq PO ONETIME ONE Stop: 05/20/20 21:11 Last Admin: 05/20/20 20:45 Dose: 40 meq Documented by: Sildenafil Citrate (Revatio) 20 mg PO TID [facility] Last Admin: 05/20/20 22:10 Dose: Not Given Documented by: Trolamine Salicylate (Aspercreme 10%) 0 gm TOP Q1H PRN PRN Reason: Pain - Exam Quality Assessment: Supplemental Oxygen General: Alert, Oriented HEENT: Pupils Equal, Mucous Membr. Moist/Irmo Neck: Supple Lungs: Rales (Bibasilar). No: Normal Respiratory Effort (Increased respiratory rate and effort) Cardiovascular: Regular Rate, Regular Rhythm GI/Abdominal Exam: Normal Bowel Sounds, Soft, Non-Tender, No Organomegaly, No Distention, No Abnormal Bruit Extremities: Normal Inspection, Normal Range of Motion, Non-Tender, No Pedal Edema, Normal Capillary Refill Skin: Warm, Dry, Intact Neurological: No New Focal Deficit Psy/Mental Status: Alert, Normal Affect, Normal Mood Sepsis Event Note - Evaluation Sepsis Screening Result: No Definite Risk - Focused Exam Vital Signs: Vital Signs Temp Pulse Pulse Resp BP BP Pulse Ox 05/22/20 08:32 20 L 195/91 H 05/22/20 08:25 05/22/20 03:15 87 148/68 H 05/22/20 03:03 97.9 F 104 H 28 H 174/88 H 92 L 05/22/20 00:00 87 92 L 05/21/20 22:25 92 L 05/21/20 22:15 81 L Pulse Ox 05/22/20 08:32 05/22/20 08:25 91 L 05/22/20 03:15 05/22/20 03:03 05/22/20 00:00 05/21/20 22:25 05/21/20 22:15 - Problem List & Annotations (1) Pneumonia due to COVID-19 virus SNOMED Code(s): 063541617050350208 Code(s): U07.1 - COVID-19; J12.89 - OTHER VIRAL PNEUMONIA Status: Acute Current Visit: Yes (2) Pulmonary hypertension SNOMED Code(s): 08536358 Code(s): I27.20 - PULMONARY HYPERTENSION, UNSPECIFIED Status: Acute Current Visit: No (3) CHF (congestive heart failure) SNOMED Code(s): 59325492 Code(s): I50.9 - HEART FAILURE, UNSPECIFIED Status: Acute Current Visit: Yes (4) Thrush, oral SNOMED Code(s): 81107559 Code(s): B37.0 - CANDIDAL STOMATITIS Status: Acute Current Visit: Yes (5) Vaginal thrush SNOMED Code(s): 67124207 Code(s): B37.3 - CANDIDIASIS OF VULVA AND VAGINA Status: Acute Current Visit: Yes (6) Pulmonary fibrosis SNOMED Code(s): 84538334 Code(s): J84.10 - PULMONARY FIBROSIS, UNSPECIFIED Status: Acute Current Visit: Yes (7) Bronchiectasis SNOMED Code(s): 91006433 Code(s): J47.9 - BRONCHIECTASIS, UNCOMPLICATED Status: Acute Current Visit: Yes - Problem List Review Problem List Initiated/Reviewed/Updated: Yes - My Orders Last 24 Hours: My Active Orders 05/21/20 09:00 Cholecalciferol (Vitamin D3) [Vitamin D3] 50 mcg PO DAILY Enoxaparin [Lovenox] 40 mg SUBCUT DAILY Fluticasone Propionate [Flonase] 0 gm NASBOTH DAILY Levothyroxine [Synthroid] 50 mcg PO DAILY Metoprolol Succinate [Toprol XL] 50 mg PO DAILY Nystatin [Nystatin Oral Syringe] 500,000 unit PO QID Pantoprazole [ProTONIX] 40 mg PO DAILY Potassium Chloride [Klor-Con 10] 10 meq PO DAILY Trospium [Sanctura] 20 mg PO BID dexAMETHasone 6 mg PO DAILY 05/21/20 09:59 Verify Patient Consent Obtain [RC] ASDIRECTED Transfuse Fresh Frozen Plasma [COMM] Routine 05/21/20 10:08 Loperamide [Imodium] 2 mg PO Q6H PRN 05/21/20 Dinner Regular Diet [DIET] 05/21/20 18:00 Remdesivir (Eua) [Remdesivir (EUA)] 100 mg Sodium Chloride 0.9% [Normal Saline] 100 ml IV Q24H - Plan Plan:: Assessment 05/20/2020 * 78-year-old female with known Covid and pulmonary fibrosis with worsening oxygenation and increasing D-dimer. * Recent hospitalization for sepsis on April 27, 2020. D-dimer at that time was 17. * Oral thrush and vaginal candidiasis * History of pulmonary hypertension, pulmonary fibrosis, bronchiectasis, hypertension, congestive heart failure, severe valvular disease involving both the aortic valve and mitral valve, abdominal aortic aneurysm with endovascular grafting Unfortunate patient is high risk for complications secondary to her multiple medical problems which include cardiac and respiratory disease. Patient is in her 80s, is on oxygen at baseline, heart failure and hypertension, has poor appetite, multiple medical problems. 05/21/2020 * Pneumonia due to COVID-19 * Pulmonary fibrosis and interstitial lung disease * Bronchiectasis * Oral and vaginal candidiasis * Pulmonary hypertension Patient has had an uneventful night and even some improvement in her oxygen saturations. She is in agreement to getting convalescent plasma. She was started on remdesivir yesterday. No antibiotics at this time. She was also started on nystatin and Diflucan for her candidiasis. CT of the chest performed yesterday was negative for pulmonary embolism. She did have an interval development of patchy areas of groundglass opacification compared to April 27. This is consistent with viral pneumonia. 05/22/2020 * Pneumonia due to COVID-19 * Pulmonary fibrosis and interstitial lung disease * Bronchiectasis * Oral and vaginal candidiasis * Pulmonary hypertension Patient continues on 2 to 3 L nasal cannula. She is generally without much change, but her CRP did go up to 11.8. D-dimer has not changed and is still 8.66. Fortunately, procalcitonin did come back low at 0.05. White count continues at 3.12. Blood pressure has been significantly elevated. Plan * Admit to floor on telemetry and continuous pulse ox * Remdesivir day 3 of 5 * Dexamethasone day 2 of 3. She received 7 doses prior to admission * 2 units convalescent plasma given * Lasix 20 mg IV x1 * Hydralazine 10 mg every 4 hours as needed systolic blood pressure greater than 180 and diastolic blood pressure greater than 100 * Nystatin swish and spit 4 times daily * Add aspirin 81 mg daily because of data suggesting a decrease risk to go on to a ventilator. * No antibiotics at this time. * Follow CBC, CMP, D-dimer, CRP, mag, Phos daily * Continue FiO2 to keep SPO2 between 88 and 94%. Currently on 2 L. She is on 1 L at home. * VTE prophylaxis with Lovenox. Will increase it from once a day to 40 mg twice daily because of the elevated D-dimer. She did have a negative CTA. * CODE STATUS: DO NOT INTUBATE but wants "attempt at resuscitation"
[2020-05-22] MEDS ORDERED: Magnesium Sulfate/Water 4 GM in Premix Bag 1 BAG IV ONE (09:13)
[2020-05-22] MEDS ORDERED: Potassium Chloride 20 MEQ Tab.ER PO ONE (09:13)
[2020-05-22] MEDS: Acetaminophen 325 MG Tab PO PRN ×3 (09:44→23:31)
[2020-05-22] MEDS: Fluticasone Propionate Nasal Spray 16 GM Bottle NASBOTH SCH (10:00)
[2020-05-22] MEDS ORDERED: Furosemide 20 MG/2 ML VIAL IVPUSH ONE (10:15)
[2020-05-22] MEDS: Aspirin 81 MG Tab.EC PO SCH (11:11)
[2020-05-22] MEDS: Benzocaine/Cetylpyridinium/Menthol Lozenge MUCMEM PRN (15:35)
[2020-05-22] MEDS: hydrALAZINE 20 MG/ML SDV IVPUSH PRN (17:22)
[2020-05-22] MEDS: REMDESIVIR (EUA) 100 MG in Sodium Chloride 0.9% 100 ML IV SCH (18:00)
[2020-05-22] MEDS: Magnesium Oxide 400 MG Tab PO SCH (22:05)
[2020-05-22] MEDS: Ondansetron 4 MG/2 ML SDV IV PRN (22:07)
[2020-05-23] MEDS: Aspirin 81 MG Tab.EC PO SCH ×2 (08:15→10:09)
[2020-05-23] MEDS: Fluticasone Propionate Nasal Spray 16 GM Bottle NASBOTH SCH (08:15)
[2020-05-23] MEDS: Potassium Chloride 10 MEQ Tab.ER PO SCH (08:15)
[2020-05-23] MEDS: IPRATROPIUM 0.03% SCH ×2 (08:15→15:33)
[2020-05-23] MEDS ORDERED: Ondansetron 4 MG/2 ML SDV ONE (08:15)
[2020-05-23] MEDS: Enoxaparin 40 MG/0.4 ML Syringe SUBCUT SCH (08:16)
[2020-05-23] MEDS: Nystatin Susp 100,000 Unit/ML 5 ML Oral Syringe PO SCH ×4 (08:16→20:17)
[2020-05-23] MEDS: Metoprolol Succinate 50 MG Tab.ER PO SCH ×2 (08:16→09:42)
[2020-05-23] MEDS: Magnesium Oxide 400 MG Tab PO SCH ×2 (08:16→20:17)
[2020-05-23] MEDS: Sildenafil 20 MG Tab **PTOM PO SCH ×3 (08:16→15:33)
[2020-05-23] MEDS: Levothyroxine 50 MCG Tab PO SCH (08:16)
[2020-05-23] MEDS: Pantoprazole 40 MG Tab.CR PO SCH (08:16)
[2020-05-23] MEDS: Trospium 20 MG Tab PO SCH ×3 (08:16→20:17)
[2020-05-23] MEDS: Ondansetron 4 MG/2 ML SDV IV PRN (08:17)
[2020-05-23] MEDS: Dexamethasone 4 MG Tab PO SCH (08:17)
[2020-05-23] MEDS: Cholecalciferol (Vitamin D3) 25 MCG Tab PO SCH (08:17)
[2020-05-23] MEDS: Glycopyrrolate 15.6 MCG Cap.W.Dev Kit of 6 IH SCH ×2 (08:38→20:20)
[2020-05-23] MEDS ORDERED: Metoprolol Tartrate 5 MG in Sodium Chloride 0.9% 50 ML IV STA (08:44)
[2020-05-23] MEDS ORDERED: Metoprolol Tartrate 5 MG/5 ML SDV IV SCH (10:00)
[2020-05-23] MEDS: hydrALAZINE 20 MG/ML SDV IVPUSH PRN (10:08)
[2020-05-23] MEDS ORDERED: Metoprolol Tartrate 5 MG/5 ML SDV IVPUSH ONE (11:35)
[2020-05-23] MEDS ORDERED: Sodium Chloride 0.9% 500 ML IV ONE (12:09)
[2020-05-23] MEDS: Acetaminophen 325 MG Tab PO PRN ×2 (12:28→17:46)
[2020-05-23] MEDS: Metoprolol Tartrate 5 MG/5 ML SDV IVPUSH PRN (17:11)
[2020-05-23] MEDS: REMDESIVIR (EUA) 100 MG in Sodium Chloride 0.9% 100 ML IV SCH (17:11)
[2020-05-23] MEDS ORDERED: Azithromycin 500 MG in Sodium Chloride 0.9% 250 ML IV SCH (18:00)
--- NOTE | 2020-05-23 18:16 | PCM.PN ---
- General Info Date of Service: 05/23/20 Admission Dx/Problem (Free Text): Admission Diagnosis/Problem Admission Diagnosis/Problem Viral pneumonia Subjective Update: Patient became more short of breath today. She had worsening of her mood and felt like giving up. She is requiring increase in her oxygen requirements appetite is moderate and no bowel movement since the . Functional Status: Reports: Pain Controlled - Review of Systems General: Reports: Fatigue HEENT: Reports: No Symptoms Pulmonary: Reports: Shortness of Breath, Cough Cardiovascular: Reports: No Symptoms Psychiatric: Reports: Depression, Anxiety - Patient Data Vitals - Most Recent: Last Vital Signs Temp 98.8 F 05/23/20 15:35 Pulse 85 05/23/20 17:26 Resp 22 H 05/23/20 15:35 BP 139/75 05/23/20 17:11 Pulse Ox 90 L 05/23/20 17:00 Weight - Most Recent: 54.023 kg I&O - Last 24 Hours: Intake & Output 05/23/20 05/23/20 05/23/20 06:59 14:59 22:59 Intake Total 580 870 Output Total 600 360 Balance -20 510 Lab Results Last 24 Hours: Laboratory Results - last 24 hr 05/22/20 05/23/20 05/23/20 Range/Units 10:09 04:21 04:21 WBC 6.13 (3.98-10.04) K/mm3 RBC 4.62 (3.98-5.22) M/mm3 Hgb 12.2 (11.2-15.7) gm/dl Hct 39.4 (34.1-44.9) % MCV 85.3 (79.4-94.8) fl MCH 26.4 (25.6-32.2) pg MCHC 31.0 L (32.2-35.5) g/dl RDW Std Deviation 57.7 H (36.4-46.3) fL Plt Count 169 L (182-369) K/mm3 MPV 9.8 (9.4-12.3) fl Neut % (Auto) 84.1 H (34.0-71.1) % Lymph % (Auto) 6.9 L (19.3-51.7) % [place] % (Auto) 8.5 (4.7-12.5) % Eos % (Auto) 0 L (0.7-5.8) Baso % (Auto) 0.2 (0.1-1.2) % Neut # (Auto) 5.16 (1.56-6.13) K/mm3 Lymph # (Auto) 0.42 L (1.18-3.74) K/mm3 [place] # (Auto) 0.52 H (0.24-0.36) K/mm3 Eos # (Auto) 0.00 L (0.04-0.36) K/mm3 Baso # (Auto) 0.01 (0.01-0.08) K/mm3 Manual Slide Review Abnormal smear D-Dimer, Quantitative 14.99 H (0.19-0.50) mg/L Sodium (136-145) mEq/L Potassium (3.5-5.1) mEq/L Chloride (98-107) mEq/L Carbon Dioxide (21-32) mEq/L Anion Gap (5-15) BUN (7-18) mg/dL Creatinine (0.55-1.02) mg/dL Est Cr Clr Drug Dosing mL/min Estimated GFR (MDRD) (>60) mL/min BUN/Creatinine Ratio (14-18) Glucose (83-115) mg/dL Calcium (8.5-10.1) mg/dL Phosphorus (2.6-4.7) mg/dL Magnesium (1.8-2.4) mg/dl Total Bilirubin (0.2-1.0) mg/dL AST (15-37) U/L ALT (14-59) U/L Alkaline Phosphatase (46-116) U/L C-Reactive Protein (<1.0) mg/dL Total Protein (6.4-8.2) g/dl Albumin (3.4-5.0) g/dl Globulin gm/dL Albumin/Globulin Ratio (1-2) Procalcitonin <0.05 (<0.10) ng/mL 05/23/20 Range/Units 04:21 WBC (3.98-10.04) K/mm3 RBC (3.98-5.22) M/mm3 Hgb (11.2-15.7) gm/dl Hct (34.1-44.9) % MCV (79.4-94.8) fl MCH (25.6-32.2) pg MCHC (32.2-35.5) g/dl RDW Std Deviation (36.4-46.3) fL Plt Count (182-369) K/mm3 MPV (9.4-12.3) fl Neut % (Auto) (34.0-71.1) % Lymph % (Auto) (19.3-51.7) % [place] % (Auto) (4.7-12.5) % Eos % (Auto) (0.7-5.8) Baso % (Auto) (0.1-1.2) % Neut # (Auto) (1.56-6.13) K/mm3 Lymph # (Auto) (1.18-3.74) K/mm3 [place] # (Auto) (0.24-0.36) K/mm3 Eos # (Auto) (0.04-0.36) K/mm3 Baso # (Auto) (0.01-0.08) K/mm3 Manual Slide Review D-Dimer, Quantitative (0.19-0.50) mg/L Sodium 141 (136-145) mEq/L Potassium 3.8 (3.5-5.1) mEq/L Chloride 105 (98-107) mEq/L Carbon Dioxide 30 (21-32) mEq/L Anion Gap 9.8 (5-15) BUN 18 (7-18) mg/dL Creatinine 0.8 (0.55-1.02) mg/dL Est Cr Clr Drug Dosing 42.88 mL/min Estimated GFR (MDRD) > 60 (>60) mL/min BUN/Creatinine Ratio 22.5 H (14-18) Glucose 152 H (83-115) mg/dL Calcium 8.9 (8.5-10.1) mg/dL Phosphorus 2.1 L (2.6-4.7) mg/dL Magnesium 1.9 (1.8-2.4) mg/dl Total Bilirubin 0.6 (0.2-1.0) mg/dL AST 20 (15-37) U/L ALT 28 (14-59) U/L Alkaline Phosphatase 130 H (46-116) U/L C-Reactive Protein 5.9 H* (<1.0) mg/dL Total Protein 6.7 (6.4-8.2) g/dl Albumin 2.4 L (3.4-5.0) g/dl Globulin 4.3 gm/dL Albumin/Globulin Ratio 0.6 L (1-2) Procalcitonin (<0.10) ng/mL Chin Results Last 24 Hours: Microbiology 05/20/20 17:56 Aerobic Blood Culture - Preliminary Blood - Venous NO GROWTH AFTER 3 DAYS Anaerobic Blood Culture - Preliminary NO GROWTH AFTER 3 DAYS 05/20/20 17:46 Aerobic Blood Culture - Preliminary Blood NO GROWTH AFTER 3 DAYS Anaerobic Blood Culture - Preliminary NO GROWTH AFTER 3 DAYS Med Orders - Current: Current Medications Acetaminophen (Tylenol) 650 mg PO Q4H PRN PRN Reason: Pain (Mild 1-3)/fever Last Admin: 05/23/20 17:46 Dose: 650 mg Documented by: Albuterol (Proventil Hfa) 0 gm INH Q2H PRN PRN Reason: Shortness of Breath Aspirin (Halfprin) 81 mg PO DAILY [facility] Last Admin: 05/23/20 10:09 Dose: 81 mg Documented by: Benzocaine/Menthol (Cepacol Sore Throat) 1 lozenge MUCMEM Q2HR PRN PRN Reason: Dry mouth Last Admin: 05/22/20 15:35 Dose: 1 lozenge Documented by: Cholecalciferol (Vitamin D3) 50 mcg PO DAILY [facility] Last Admin: 05/23/20 08:17 Dose: Not Given Documented by: Enoxaparin Sodium (Lovenox) 50 mg SUBCUT BID [facility] Fluticasone Propionate (Flonase) 0 gm NASBOTH DAILY [facility] Last Admin: 05/23/20 08:15 Dose: Not Given Documented by: Glycopyrrolate (Seebri Neohaler) 15.6 mcg IH BID [facility] Last Admin: 05/23/20 08:38 Dose: 1 cap Documented by: Hydralazine HCl (Apresoline) 10 mg IVPUSH Q4H PRN PRN Reason: Hypertension Last Admin: 05/23/20 10:08 Dose: 10 mg Documented by: Remdesivir 100 mg/ Sodium (Chloride) 100 mls @ 100 mls/hr IV Q24H [facility] Stop: 05/24/20 18:59 Last Admin: 05/23/20 17:11 Dose: 100 mls/hr Documented by: Ceftriaxone Sodium 2 gm/ (Sodium Chloride) 100 mls @ 200 mls/hr IV Q24H [facility] Stop: 05/27/20 18:29 Azithromycin 500 mg/ Sodium (Chloride) 250 mls @ 250 mls/hr IV Q24H [facility] Stop: 05/25/20 18:59 Levothyroxine Sodium (Levothyroxine) 25 mcg PO ACBREAKFAST [facility] Loperamide HCl (Imodium) 2 mg PO Q6H PRN PRN Reason: Diarrhea Last Admin: 05/21/20 10:23 Dose: 2 mg Documented by: Magnesium Oxide (Magnesium Oxide) 400 mg PO BID [facility] Last Admin: 05/23/20 08:16 Dose: Not Given Documented by: Metoprolol Succinate (Toprol Xl) 50 mg PO DAILY [facility] Last Admin: 05/23/20 09:42 Dose: 50 mg Documented by: Metoprolol Tartrate (Lopressor) 5 mg IVPUSH Q4HR PRN PRN Reason: Tachycardia Last Admin: 05/23/20 17:11 Dose: 5 mg Documented by: Ipratropium 0.03% (Nasal [place] Ptom) 2 spray .XX TID [facility] Last Admin: 05/23/20 15:33 Dose: Not Given Documented by: Nystatin (Nystatin Oral Syringe) 500,000 unit PO QID [facility] Last Admin: 05/23/20 17:11 Dose: 500,000 unit Documented by: Ondansetron HCl (Zofran) 4 mg IV Q4H PRN PRN Reason: Nausea/Vomiting Last Admin: 05/23/20 08:17 Dose: 4 mg Documented by: Pantoprazole Sodium (Protonix) 40 mg PO DAILY [facility] Last Admin: 05/23/20 08:16 Dose: Not Given Documented by: Potassium Chloride (Klor-Con 10) 10 meq PO DAILY [facility] Last Admin: 05/23/20 08:15 Dose: Not Given Documented by: Sildenafil Citrate (Revatio) 20 mg PO TID [facility] Last Admin: 05/23/20 15:33 Dose: 20 mg Documented by: Sodium Chloride (Saline Flush) 10 ml FLUSH ASDIRECTED PRN PRN Reason: Keep Vein Open Trolamine Salicylate (Aspercreme 10%) 0 gm TOP Q6H PRN PRN Reason: Pain Trospium (Sanctura) 20 mg PO BID [facility] Last Admin: 05/23/20 10:09 Dose: 20 mg Documented by: Discontinued Medications Dexamethasone (Dexamethasone) 6 mg PO DAILY [facility] Stop: 05/23/20 09:01 Last Admin: 05/23/20 08:17 Dose: Not Given Documented by: Enoxaparin Sodium (Lovenox) 40 mg SUBCUT DAILY [facility] Last Admin: 05/22/20 08:38 Dose: 40 mg Documented by: Enoxaparin Sodium (Lovenox) 40 mg SUBCUT BID [facility] Last Admin: 05/23/20 08:16 Dose: 40 mg Documented by: Fluconazole (Diflucan) 150 mg PO ONETIME ONE Stop: 05/20/20 22:16 Last Admin: 05/20/20 21:32 Dose: 150 mg Documented by: Furosemide (Lasix) 20 mg IVPUSH NOW ONE Stop: 05/22/20 10:16 Last Admin: 05/22/20 11:11 Dose: 20 mg Documented by: Remdesivir 200 mg/ Sodium (Chloride) 250 mls @ 250 mls/hr IV ONETIME ONE Stop: 05/20/20 18:59 Last Admin: 05/20/20 19:32 Dose: 250 mls/hr Documented by: Sodium Chloride (Normal Saline) 45 mls @ 40 mls/hr IV ASDIRECTED [facility] Sodium Chloride (Normal Saline) 250 mls @ 100 mls/hr IV ASDIRECTED [facility] Stop: 05/21/20 23:00 Last Admin: 05/21/20 13:36 Dose: 100 mls/hr Documented by: Magnesium Sulfate 4 gm/ Premix 50 mls @ 12.5 mls/hr IV ONETIME ONE Stop: 05/22/20 13:12 Last Admin: 05/22/20 09:43 Dose: 12.5 mls/hr Documented by: Sodium Chloride (Normal Saline) 500 mls @ 250 mls/hr IV .BOLUS ONE Stop: 05/23/20 14:08 Last Admin: 05/23/20 12:27 Dose: 250 mls/hr Documented by: Iopamidol (Isovue-370 (76%)) 100 ml IVPUSH ONETIME ONE Stop: 05/20/20 20:56 Last Admin: 05/20/20 22:34 Dose: 100 ml Documented by: Levothyroxine Sodium (Synthroid) 50 mcg PO DAILY [facility] Last Admin: 05/23/20 08:16 Dose: Not Given Documented by: Metoprolol Tartrate (Lopressor) 5 mg IV ONETIME [facility] Stop: 05/23/20 10:30 Metoprolol Tartrate (Lopressor) 5 mg IVPUSH ONETIME ONE Stop: 05/23/20 11:36 Last Admin: 05/23/20 11:38 Dose: 5 mg Documented by: Ondansetron HCl (Zofran) Confirm Administered Dose 4 mg .ROUTE .STK-MED ONE Stop: 05/23/20 08:16 Last Admin: 05/23/20 09:47 Dose: Not Given Documented by: Potassium Chloride (Klor-Con M20) 40 meq PO ONETIME ONE Stop: 05/20/20 21:11 Last Admin: 05/20/20 20:45 Dose: 40 meq Documented by: Potassium Chloride (Klor-Con M20) 40 meq PO ONETIME ONE Stop: 05/22/20 09:14 Last Admin: 05/22/20 09:44 Dose: 40 meq Documented by: Sildenafil Citrate (Revatio) 20 mg PO TID [facility] Last Admin: 05/20/20 22:10 Dose: Not Given Documented by: Sodium Chloride (Saline Flush) 10 ml FLUSH ONETIME PRN PRN Reason: Keep Vein Open Trolamine Salicylate (Aspercreme 10%) 0 gm TOP Q1H PRN PRN Reason: Pain - Exam Quality Assessment: Supplemental Oxygen General: Alert, Oriented HEENT: Pupils Equal, Mucous Membr. Moist/[place] Neck: Supple Lungs: Normal Respiratory Effort (Increased respiratory rate), Rales (Bibasilar) Cardiovascular: Regular Rate, Regular Rhythm GI/Abdominal Exam: Normal Bowel Sounds, Soft, Non-Tender, No Organomegaly, No Distention, No Abnormal Bruit Extremities: Normal Inspection, Normal Range of Motion, Non-Tender, No Pedal Edema, Normal Capillary Refill Skin: Warm, Dry, Intact Psy/Mental Status: Depressed Sepsis Event Note - Evaluation Sepsis Screening Result: No Definite Risk - Focused Exam Vital Signs: Vital Signs Temp Pulse Pulse Resp BP BP Pulse Ox 05/23/20 17:26 85 05/23/20 17:11 112 H 139/75 05/23/20 17:00 90 L 05/23/20 15:35 98.8 F 110 H 22 H 106/56 L 90 L 05/23/20 12:53 105 H 106/56 L 05/23/20 12:00 98.2 F 110 H 22 H 93/71 91 L 05/23/20 11:38 112 H 129/70 05/23/20 10:30 109 H 119/64 05/23/20 10:07 109 H 181/90 H 05/23/20 09:43 98.2 F 115 H 25 H 123/66 93 L 05/23/20 09:42 115 H 123/66 - Problem List & Annotations (1) Pneumonia due to COVID-19 virus SNOMED Code(s): 425552621174848928 Code(s): U07.1 - COVID-19; J12.89 - OTHER VIRAL PNEUMONIA Status: Acute Current Visit: Yes (2) Pulmonary hypertension SNOMED Code(s): 29663942 Code(s): I27.20 - PULMONARY HYPERTENSION, UNSPECIFIED Status: Acute Current Visit: No (3) CHF (congestive heart failure) SNOMED Code(s): 71685063 Code(s): I50.9 - HEART FAILURE, UNSPECIFIED Status: Acute Current Visit: Yes (4) Thrush, oral SNOMED Code(s): 25854307 Code(s): B37.0 - CANDIDAL STOMATITIS Status: Acute Current Visit: Yes (5) Vaginal thrush SNOMED Code(s): 68061678 Code(s): B37.3 - CANDIDIASIS OF VULVA AND VAGINA Status: Acute Current Visit: Yes (6) Pulmonary fibrosis SNOMED Code(s): 82501560 Code(s): J84.10 - PULMONARY FIBROSIS, UNSPECIFIED Status: Acute Current Visit: Yes (7) Bronchiectasis SNOMED Code(s): 08967776 Code(s): J47.9 - BRONCHIECTASIS, UNCOMPLICATED Status: Acute Current Visit: Yes - Problem List Review Problem List Initiated/Reviewed/Updated: Yes - My Orders Last 24 Hours: My Active Orders 05/22/20 21:00 Magnesium Oxide 400 mg PO BID 05/23/20 09:33 Patient Status [ADT] Routine 05/23/20 11:11 Urinary Catheter Assessment [RC] Q4HR 05/23/20 11:15 Insert Jones Catheter [Insert Urinary Catheter] [OM.PC] Q24H 05/23/20 16:34 Metoprolol Tartrate [Lopressor] 5 mg IVPUSH Q4HR PRN 05/23/20 16:36 Chest 1V Frontal [CR] Routine 05/23/20 18:00 Azithromycin [Zithromax] 500 mg Sodium Chloride 0.9% [Normal Saline (AdvBag)] 250 ml IV Q24H cefTRIAXone [Rocephin] 2 gm Sodium Chloride 0.9% [Normal Saline] 100 ml IV Q24H 05/23/20 21:00 Enoxaparin [Lovenox] 50 mg SUBCUT BID 05/24/20 05:11 C-REACTIVE PROTEIN [CHEM] AM CBC WITH AUTO DIFF [HEME] AM CMP [COMPREHENSIVE METABOLIC PN,CMP] [CHEM] AM DD [D-DIMER QUANTITATIVE] [COAG] AM MAGNESIUM [CHEM] AM PHOSPHORUS [CHEM] AM 05/24/20 06:00 Levothyroxine 25 mcg PO ACBREAKFAST 05/25/20 05:11 C-REACTIVE PROTEIN [CHEM] AM CBC WITH AUTO DIFF [HEME] AM CMP [COMPREHENSIVE METABOLIC PN,CMP] [CHEM] AM DD [D-DIMER QUANTITATIVE] [COAG] AM MAGNESIUM [CHEM] AM PHOSPHORUS [CHEM] AM - Plan Plan:: Assessment 05/20/2020 * 78-year-old female with known Covid and pulmonary fibrosis with worsening oxygenation and increasing D-dimer. * Recent hospitalization for sepsis on April 27, 2020. D-dimer at that time was 17. * Oral thrush and vaginal candidiasis * History of pulmonary hypertension, pulmonary fibrosis, bronchiectasis, hypertension, congestive heart failure, severe valvular disease involving both the aortic valve and mitral valve, abdominal aortic aneurysm with endovascular grafting Unfortunate patient is high risk for complications secondary to her multiple medical problems which include cardiac and respiratory disease. Patient is in her 80s, is on oxygen at baseline, heart failure and hypertension, has poor appetite, multiple medical problems. 05/21/2020 * Pneumonia due to COVID-19 * Pulmonary fibrosis and interstitial lung disease * Bronchiectasis * Oral and vaginal candidiasis * Pulmonary hypertension Patient has had an uneventful night and even some improvement in her oxygen saturations. She is in agreement to getting convalescent plasma. She was started on remdesivir yesterday. No antibiotics at this time. She was also started on nystatin and Diflucan for her candidiasis. CT of the chest performed yesterday was negative for pulmonary embolism. She did have an interval development of patchy areas of groundglass opacification compared to April 27. This is consistent with viral pneumonia. 05/22/2020 * Pneumonia due to COVID-19 * Pulmonary fibrosis and interstitial lung disease * Bronchiectasis * Oral and vaginal candidiasis * Pulmonary hypertension Patient continues on 2 to 3 L nasal cannula. She is generally without much change, but her CRP did go up to 11.8. D-dimer has not changed and is still 8.66. Fortunately, procalcitonin did come back low at 0.05. White count continues at 3.12. Blood pressure has been significantly elevated. 05/23/2020 * Pneumonia due to COVID-19 -deteriorated * Pulmonary fibrosis and interstitial lung disease * Bronchiectasis * Oral and vaginal candidiasis * Pulmonary hypertension * Depression Patient transferred to the ICU because of worsening respiratory status. She is currently on 6 L nasal cannula which is a significant increase. She was given a fluid challenge and she did have multiple episodes of tachycardia today requiring IV Lopressor. I discussed with her family and her about her CODE STATUS again. They are going to discuss among themselves about if she wants CPR. Currently she wants 3 attempts at CPR but does not want to be intubated. D-dimer increased difficulty today to 15 and C-reactive protein decreased to 5.9. Magnesium is 1.9, but phosphorus has decreased to 2.1. Albumin is 2.4 and TSH is low at 0.296. Procalcitonin is normal. Plan * Transfer to ICU for closer observation * Start azithromycin and Rocephin * Remdesivir day 4 of 5 * Dexamethasone day 3 of 3. She received 7 doses prior to admission * 2 units convalescent plasma given * Hydralazine 10 mg every 4 hours as needed systolic blood pressure greater than 180 and diastolic blood pressure greater than 100 * Lopressor 5 mg IV as needed heart rate greater than 110 * Nystatin swish and spit 4 times daily * Aspirin 81 mg daily * Decrease levothyroxine to 25 mcg daily * I spoke with her and her son in regards to anticoagulation. Because of her increasing D-dimer and worsening respiratory status they agreed to put her on full dose Lovenox of 1 mg/kg twice daily. Informed consent and risk and benefits including bleeding were discussed. * Follow CBC, CMP, D-dimer, CRP, mag, Phos daily * Continue FiO2 to keep SPO2 between 88 and 94%. Currently on 2 L. She is on 1 L at home. * VTE prophylaxis with Lovenox. Will increase it from once a day to 40 mg twice daily because of the elevated D-dimer. She did have a negative CTA. * CODE STATUS: DO NOT INTUBATE but wants "attempt at resuscitation" which is 3 attempts.
[2020-05-23] MEDS: cefTRIAXone 2 GM in Sodium Chloride 0.9% 100 ML IV SCH (18:44)
[2020-05-23] MEDS: Enoxaparin 60 MG/0.6 ML Syringe SUBCUT SCH (20:18)
[2020-05-23] MEDS: Azithromycin 500 MG in Sodium Chloride 0.9% 250 ML IV SCH (20:20)
[2020-05-23] MEDS: Benzocaine/Cetylpyridinium/Menthol Lozenge MUCMEM PRN (21:19)
[2020-05-24] MEDS: Acetaminophen 325 MG Tab PO PRN ×2 (03:10→14:19)
[2020-05-24] MEDS: IPRATROPIUM 0.03% SCH ×4 (03:11→20:29)
[2020-05-24] MEDS: Sildenafil 20 MG Tab **PTOM PO SCH ×4 (03:14→20:45)
[2020-05-24] MEDS: Benzocaine/Cetylpyridinium/Menthol Lozenge MUCMEM PRN ×4 (03:29→21:55)
[2020-05-24] MEDS: Levothyroxine 25 MCG Tab PO SCH (06:32)
[2020-05-24] MEDS: Glycopyrrolate 15.6 MCG Cap.W.Dev Kit of 6 IH SCH ×2 (08:27→20:30)
[2020-05-24] MEDS: Albuterol 6.7 GM Inhaler INH PRN ×3 (08:27→20:30)
[2020-05-24] MEDS: Aspirin 81 MG Tab.EC PO SCH (08:41)
[2020-05-24] MEDS: Metoprolol Succinate 50 MG Tab.ER PO SCH ×2 (08:41→20:11)
[2020-05-24] MEDS: Trospium 20 MG Tab PO SCH ×2 (08:41→23:25)
[2020-05-24] MEDS: Nystatin Susp 100,000 Unit/ML 5 ML Oral Syringe PO SCH ×4 (08:41→20:19)
[2020-05-24] MEDS: Cholecalciferol (Vitamin D3) 25 MCG Tab PO SCH (08:41)
[2020-05-24] MEDS: Potassium Chloride 10 MEQ Tab.ER PO SCH (08:41)
[2020-05-24] MEDS: Magnesium Oxide 400 MG Tab PO SCH ×2 (08:42→20:11)
[2020-05-24] MEDS: Pantoprazole 40 MG Tab.CR PO SCH (08:42)
[2020-05-24] MEDS: Enoxaparin 60 MG/0.6 ML Syringe SUBCUT SCH ×2 (08:42→20:09)
[2020-05-24] MEDS: Fluticasone Propionate Nasal Spray 16 GM Bottle NASBOTH SCH (08:43)
[2020-05-24] MEDS ORDERED: Magnesium Sulfate/Water 4 GM in Premix Bag 1 BAG IV ONE (09:44)
--- NOTE | 2020-05-24 10:45 | CR ---
PROCEDURE INFORMATION: Exam: XR Chest, 1 View Exam date and time: 05/22/2020 9:12 AM Age: 80 years old Clinical indication: Other: Worsening oxygen sats. Covid+ TECHNIQUE: Imaging protocol: XR of the chest Views: 1 view. COMPARISON: CR Chest 1V Frontal 05/21/2020 9:10 AM FINDINGS: Lungs: Persisting patchy peripheral airspace opacity is present which is unchanged when compared to the previous examination. Findings compatible the patient's known COVID-19 pneumonia. This appears to be grossly stable. Pleural space: Unremarkable. No pleural effusion. No pneumothorax. Heart/Mediastinum: Descending thoracic aorta stent graft is present. The heart is moderately enlarged. IMPRESSION: 1. Stable multilobar pneumonia compatible patient's known COVID-19 infection. Thank you for allowing us to participate in the care of your patient. Dictated and Authenticated by: Stan Goncalves MD 05/22/2020 10:52 AM Central Time ([place] & [place]) [facility]
--- NOTE | 2020-05-24 10:46 | CR ---
Addendum created by Stan Goncalves MD on 05/23/2020 7:08 PM Central Time ([place] & [place]): Findings compatible with possible COVID-19 pneumonia. Initial Report created on 05/23/2020 6:55 PM Central Time ([place] & [place]): PROCEDURE INFORMATION: Exam: XR Chest, 1 View Exam date and time: 05/23/2020 4:49 PM Age: 80 years old Clinical indication: Shortness of breath TECHNIQUE: Imaging protocol: XR of the chest Views: 1 view. COMPARISON: CR Chest 1V Frontal 05/22/2020 9:12 AM FINDINGS: Lungs: Patchy airspace density is present within both lungs. The finding is concerning for possible pneumonia. Consider atypical/viral etiologies. Pleural space: Unremarkable. No pleural effusion. No pneumothorax. Heart/Mediastinum: There is mild cardiomegaly. Vasculature: A thoracic aortic stent graft is present. This is unchanged in position. Bones/joints: Unremarkable. IMPRESSION: Possible multilobar pneumonia. Consider atypical/viral etiology. Thank you for allowing us to participate in the care of your patient. Dictated and Authenticated by: Stan Goncalves MD 05/23/2020 6:55 PM Central Time ([place] & [place]) [facility]
[2020-05-24] MEDS: Metoprolol Tartrate 5 MG/5 ML SDV IVPUSH PRN ×2 (11:25→15:05)
[2020-05-24] MEDS: LORazepam 2 MG/ML SDV IVPUSH PRN (15:07)
[2020-05-24] MEDS ORDERED: Furosemide 20 MG/2 ML VIAL IVPUSH ONE (15:30)
[2020-05-24] MEDS: Diazepam 2 MG Tab PO PRN ×2 (15:38→20:19)
--- NOTE | 2020-05-24 15:50 | PCM.PN ---
- General Info Date of Service: 05/24/20 Admission Dx/Problem (Free Text): Admission Diagnosis/Problem Admission Diagnosis/Problem Viral pneumonia Subjective Update: Liver is very depressed today. She is concerned that she may not make it through this. She required going on high flow nasal cannula. C-reactive protein increased to 10.7. Appetite is decreased. Functional Status: Reports: Pain Controlled - Review of Systems General: Reports: Fatigue HEENT: Reports: No Symptoms Pulmonary: Reports: Shortness of Breath, Cough Cardiovascular: Reports: No Symptoms Gastrointestinal: Reports: Decreased Appetite Psychiatric: Reports: Depression - Patient Data Vitals - Most Recent: Last Vital Signs Temp 97.9 F 05/24/20 12:00 Pulse 124 H 05/24/20 15:05 Resp 26 H 05/24/20 14:24 BP 130/62 05/24/20 15:05 Pulse Ox 85 L 05/24/20 14:34 Weight - Most Recent: 118 lb 11.2 oz I&O - Last 24 Hours: Intake & Output 05/24/20 05/24/20 05/24/20 06:59 14:59 22:59 Intake Total 250 1940 Output Total 675 600 Balance -425 1340 Imaging Impressions - Last 24 Hours: Chest x-ray 1 view: Multi lobar pneumonia consistent with Covid low disease Lab Results Last 24 Hours: Laboratory Results - last 24 hr 05/24/20 05/24/20 05/24/20 Range/Units 05:16 05:16 05:16 WBC 9.33 (3.98-10.04) K/mm3 RBC 4.17 (3.98-5.22) M/mm3 Hgb 11.1 L (11.2-15.7) gm/dl Hct 36.3 (34.1-44.9) % MCV 87.1 (79.4-94.8) fl MCH 26.6 (25.6-32.2) pg MCHC 30.6 L (32.2-35.5) g/dl RDW Std Deviation 58.5 H (36.4-46.3) fL Plt Count 171 L (182-369) K/mm3 MPV 10.5 (9.4-12.3) fl Neut % (Auto) 91.6 H (34.0-71.1) % Lymph % (Auto) 4.8 L (19.3-51.7) % [place] % (Auto) 2.5 L (4.7-12.5) % Eos % (Auto) 0.6 L (0.7-5.8) Baso % (Auto) 0.1 (0.1-1.2) % Neut # (Auto) 8.54 H (1.56-6.13) K/mm3 Lymph # (Auto) 0.45 L (1.18-3.74) K/mm3 [place] # (Auto) 0.23 L (0.24-0.36) K/mm3 Eos # (Auto) 0.06 (0.04-0.36) K/mm3 Baso # (Auto) 0.01 (0.01-0.08) K/mm3 Manual Slide Review Abnormal smear D-Dimer, Quantitative 10.63 H (0.19-0.50) mg/L Sodium 138 (136-145) mEq/L Potassium 3.8 (3.5-5.1) mEq/L Chloride 104 (98-107) mEq/L Carbon Dioxide 31 (21-32) mEq/L Anion Gap 6.8 (5-15) BUN 20 H (7-18) mg/dL Creatinine 0.8 (0.55-1.02) mg/dL Est Cr Clr Drug Dosing 42.88 mL/min Estimated GFR (MDRD) > 60 (>60) mL/min BUN/Creatinine Ratio 25.0 H (14-18) Glucose 88 (83-115) mg/dL Calcium 8.4 L (8.5-10.1) mg/dL Phosphorus 2.3 L (2.6-4.7) mg/dL Magnesium 1.4 L (1.8-2.4) mg/dl Total Bilirubin 0.5 (0.2-1.0) mg/dL AST 22 (15-37) U/L ALT 24 (14-59) U/L Alkaline Phosphatase 112 (46-116) U/L C-Reactive Protein 10.7 H* (<1.0) mg/dL Total Protein 5.7 L (6.4-8.2) g/dl Albumin 2.0 L (3.4-5.0) g/dl Globulin 3.7 gm/dL Albumin/Globulin Ratio 0.5 L (1-2) Chin Results Last 24 Hours: Microbiology 05/20/20 17:56 Aerobic Blood Culture - Preliminary Blood - Venous NO GROWTH AFTER 3 DAYS Anaerobic Blood Culture - Preliminary NO GROWTH AFTER 3 DAYS 05/20/20 17:46 Aerobic Blood Culture - Preliminary Blood NO GROWTH AFTER 3 DAYS Anaerobic Blood Culture - Preliminary NO GROWTH AFTER 3 DAYS Med Orders - Current: Current Medications Acetaminophen (Tylenol) 650 mg PO Q4H PRN PRN Reason: Pain (Mild 1-3)/fever Last Admin: 05/24/20 14:19 Dose: 650 mg Documented by: Albuterol (Proventil Hfa) 0 gm INH Q2H PRN PRN Reason: Shortness of Breath Last Admin: 05/24/20 14:33 Dose: 2 puff Documented by: Aspirin (Halfprin) 81 mg PO DAILY [facility] Last Admin: 05/24/20 08:41 Dose: 81 mg Documented by: Benzocaine/Menthol (Cepacol Sore Throat) 1 lozenge MUCMEM Q2HR PRN PRN Reason: Dry mouth Last Admin: 05/24/20 14:23 Dose: 1 lozenge Documented by: Cholecalciferol (Vitamin D3) 50 mcg PO DAILY [facility] Last Admin: 05/24/20 08:41 Dose: 50 mcg Documented by: Diazepam (Valium) 2 mg PO QID PRN PRN Reason: Anxiety Enoxaparin Sodium (Lovenox) 50 mg SUBCUT BID [facility] Last Admin: 05/24/20 08:42 Dose: 50 mg Documented by: Fluticasone Propionate (Flonase) 0 gm NASBOTH DAILY [facility] Last Admin: 05/24/20 08:43 Dose: 1 spray Documented by: Glycopyrrolate (Seebri Neohaler) 15.6 mcg IH BID [facility] Last Admin: 05/24/20 08:27 Dose: 1 cap Documented by: Hydralazine HCl (Apresoline) 10 mg IVPUSH Q4H PRN PRN Reason: Hypertension Last Admin: 05/23/20 10:08 Dose: 10 mg Documented by: Remdesivir 100 mg/ Sodium (Chloride) 100 mls @ 100 mls/hr IV Q24H [facility] Stop: 05/24/20 18:59 Last Admin: 05/23/20 17:11 Dose: 100 mls/hr Documented by: Ceftriaxone Sodium 2 gm/ (Sodium Chloride) 100 mls @ 200 mls/hr IV Q24H [facility] Stop: 05/27/20 18:29 Last Admin: 05/23/20 18:44 Dose: 200 mls/hr Documented by: Azithromycin 500 mg/ Sodium (Chloride) 250 mls @ 250 mls/hr IV Q24H [facility] Stop: 05/25/20 21:59 Last Admin: 05/23/20 20:20 Dose: 250 mls/hr Documented by: Levothyroxine Sodium (Levothyroxine) 25 mcg PO ACBREAKFAST [facility] Last Admin: 05/24/20 06:32 Dose: 25 mcg Documented by: Loperamide HCl (Imodium) 2 mg PO Q6H PRN PRN Reason: Diarrhea Last Admin: 05/21/20 10:23 Dose: 2 mg Documented by: Lorazepam (Ativan) 0.5 mg IVPUSH Q2H PRN PRN Reason: Anxiety Magnesium Oxide (Magnesium Oxide) 400 mg PO BID [facility] Last Admin: 05/24/20 08:42 Dose: 400 mg Documented by: Metoprolol Succinate (Toprol Xl) 50 mg PO DAILY [facility] Last Admin: 05/24/20 08:41 Dose: 50 mg Documented by: Metoprolol Succinate (Toprol Xl) 50 mg PO BEDTIME [facility] Metoprolol Tartrate (Lopressor) 5 mg IVPUSH Q4HR PRN PRN Reason: Tachycardia Last Admin: 05/24/20 15:05 Dose: 5 mg Documented by: Ipratropium 0.03% (Nasal Conklin Ptom) 2 spray .XX TID [facility] Last Admin: 05/24/20 14:53 Dose: Not Given Documented by: Nystatin (Nystatin Oral Syringe) 500,000 unit PO QID [facility] Last Admin: 05/24/20 12:51 Dose: 500,000 unit Documented by: Ondansetron HCl (Zofran) 4 mg IV Q4H PRN PRN Reason: Nausea/Vomiting Last Admin: 05/23/20 08:17 Dose: 4 mg Documented by: Pantoprazole Sodium (Protonix) 40 mg PO DAILY [facility] Last Admin: 05/24/20 08:42 Dose: 40 mg Documented by: Potassium Chloride (Klor-Con 10) 10 meq PO DAILY [facility] Last Admin: 05/24/20 08:41 Dose: 10 meq Documented by: Sildenafil Citrate (Revatio) 20 mg PO TID [facility] Last Admin: 05/24/20 15:07 Dose: 20 mg Documented by: Sodium Chloride (Saline Flush) 10 ml FLUSH ASDIRECTED PRN PRN Reason: Keep Vein Open Trolamine Salicylate (Aspercreme 10%) 0 gm TOP Q6H PRN PRN Reason: Pain Trospium (Sanctura) 20 mg PO BID [facility] Last Admin: 05/24/20 08:41 Dose: 20 mg Documented by: Discontinued Medications Dexamethasone (Dexamethasone) 6 mg PO DAILY [facility] Stop: 05/23/20 09:01 Last Admin: 05/23/20 08:17 Dose: Not Given Documented by: Enoxaparin Sodium (Lovenox) 40 mg SUBCUT DAILY [facility] Last Admin: 05/22/20 08:38 Dose: 40 mg Documented by: Enoxaparin Sodium (Lovenox) 40 mg SUBCUT BID [facility] Last Admin: 05/23/20 08:16 Dose: 40 mg Documented by: Fluconazole (Diflucan) 150 mg PO ONETIME ONE Stop: 05/20/20 22:16 Last Admin: 05/20/20 21:32 Dose: 150 mg Documented by: Furosemide (Lasix) 20 mg IVPUSH NOW ONE Stop: 05/22/20 10:16 Last Admin: 05/22/20 11:11 Dose: 20 mg Documented by: Furosemide (Lasix) 20 mg IVPUSH NOW ONE Stop: 05/24/20 15:31 Last Admin: 05/24/20 15:38 Dose: 20 mg Documented by: Remdesivir 200 mg/ Sodium (Chloride) 250 mls @ 250 mls/hr IV ONETIME ONE Stop: 05/20/20 18:59 Last Admin: 05/20/20 19:32 Dose: 250 mls/hr Documented by: Sodium Chloride (Normal Saline) 45 mls @ 40 mls/hr IV ASDIRECTED [facility] Sodium Chloride (Normal Saline) 250 mls @ 100 mls/hr IV ASDIRECTED [facility] Stop: 05/21/20 23:00 Last Admin: 05/21/20 13:36 Dose: 100 mls/hr Documented by: Magnesium Sulfate 4 gm/ Premix 50 mls @ 12.5 mls/hr IV ONETIME ONE Stop: 05/22/20 13:12 Last Admin: 05/22/20 09:43 Dose: 12.5 mls/hr Documented by: Sodium Chloride (Normal Saline) 500 mls @ 250 mls/hr IV .BOLUS ONE Stop: 05/23/20 14:08 Last Admin: 05/23/20 12:27 Dose: 250 mls/hr Documented by: Azithromycin 500 mg/ Sodium (Chloride) 250 mls @ 250 mls/hr IV Q24H [facility] Stop: 05/25/20 18:59 Last Admin: 05/24/20 10:49 Dose: Not Given Documented by: Magnesium Sulfate 4 gm/ Premix 50 mls @ 12.5 mls/hr IV ONETIME ONE Stop: 05/24/20 13:43 Last Admin: 05/24/20 10:48 Dose: 12.5 mls/hr Documented by: Iopamidol (Isovue-370 (76%)) 100 ml IVPUSH ONETIME ONE Stop: 05/20/20 20:56 Last Admin: 05/20/20 22:34 Dose: 100 ml Documented by: Levothyroxine Sodium (Synthroid) 50 mcg PO DAILY [facility] Last Admin: 05/23/20 08:16 Dose: Not Given Documented by: Metoprolol Tartrate (Lopressor) 5 mg IV ONETIME [facility] Stop: 05/23/20 10:30 Metoprolol Tartrate (Lopressor) 5 mg IVPUSH ONETIME ONE Stop: 05/23/20 11:36 Last Admin: 05/23/20 11:38 Dose: 5 mg Documented by: Ondansetron HCl (Zofran) Confirm Administered Dose 4 mg .ROUTE .STK-MED ONE Stop: 05/23/20 08:16 Last Admin: 05/23/20 09:47 Dose: Not Given Documented by: Potassium Chloride (Klor-Con M20) 40 meq PO ONETIME ONE Stop: 05/20/20 21:11 Last Admin: 05/20/20 20:45 Dose: 40 meq Documented by: Potassium Chloride (Klor-Con M20) 40 meq PO ONETIME ONE Stop: 05/22/20 09:14 Last Admin: 05/22/20 09:44 Dose: 40 meq Documented by: Sildenafil Citrate (Revatio) 20 mg PO TID [facility] Last Admin: 05/20/20 22:10 Dose: Not Given Documented by: Sodium Chloride (Saline Flush) 10 ml FLUSH ONETIME PRN PRN Reason: Keep Vein Open Trolamine Salicylate (Aspercreme 10%) 0 gm TOP Q1H PRN PRN Reason: Pain - Exam Quality Assessment: Supplemental Oxygen General: Alert, Oriented HEENT: Pupils Equal, Mucous Membr. Moist/[place] Neck: Supple Lungs: Rales (Throughout both lung matthew). No: Normal Respiratory Effort (Increased respiratory rate and effort) Cardiovascular: Regular Rhythm, Tachycardia GI/Abdominal Exam: Normal Bowel Sounds, Soft, Non-Tender, No Distention Extremities: Normal Inspection, Normal Range of Motion, Non-Tender, No Pedal Edema, Normal Capillary Refill Skin: Warm, Dry, Intact Psy/Mental Status: Alert, Normal Affect, Normal Mood Sepsis Event Note - Evaluation Sepsis Screening Result: No Definite Risk - Focused Exam Vital Signs: Vital Signs Temp Pulse Pulse Resp BP BP Pulse Ox 05/24/20 15:05 124 H 130/62 05/24/20 14:34 05/24/20 14:24 26 H 83 L 05/24/20 12:00 97.9 F 100 26 H 93 L 05/24/20 11:26 131/73 92 L 05/24/20 11:25 120 H 131/73 92 L 05/24/20 11:00 94 L 05/24/20 10:49 130/60 93 L 05/24/20 10:48 94 L 05/24/20 10:00 81 L 05/24/20 09:00 89 L 05/24/20 08:41 115 H 157/84 H 05/24/20 08:28 05/24/20 08:01 157/84 H 90 L 05/24/20 08:00 97.9 F 113 H 20 157/84 H 90 L 05/24/20 07:00 94 L 05/24/20 06:00 93 L 05/24/20 05:00 95 05/24/20 04:01 123/61 93 L 05/24/20 04:00 93 L Pulse Ox 05/24/20 15:05 05/24/20 14:34 85 L 05/24/20 14:24 05/24/20 12:00 05/24/20 11:26 05/24/20 11:25 05/24/20 11:00 05/24/20 10:49 05/24/20 10:48 05/24/20 10:00 05/24/20 09:00 05/24/20 08:41 05/24/20 08:28 91 L 05/24/20 08:01 05/24/20 08:00 05/24/20 07:00 05/24/20 06:00 05/24/20 05:00 05/24/20 04:01 05/24/20 04:00 - Problem List & Annotations (1) Pneumonia due to COVID-19 virus SNOMED Code(s): 201718425978745959 Code(s): U07.1 - COVID-19; J12.89 - OTHER VIRAL PNEUMONIA Status: Acute Current Visit: Yes (2) Pulmonary hypertension SNOMED Code(s): 32335499 Code(s): I27.20 - PULMONARY HYPERTENSION, UNSPECIFIED Status: Acute Current Visit: No (3) CHF (congestive heart failure) SNOMED Code(s): 40954057 Code(s): I50.9 - HEART FAILURE, UNSPECIFIED Status: Acute Current Visit: Yes (4) Thrush, oral SNOMED Code(s): 02193997 Code(s): B37.0 - CANDIDAL STOMATITIS Status: Acute Current Visit: Yes (5) Vaginal thrush SNOMED Code(s): 25552038 Code(s): B37.3 - CANDIDIASIS OF VULVA AND VAGINA Status: Acute Current Visit: Yes (6) Pulmonary fibrosis SNOMED Code(s): 98125623 Code(s): J84.10 - PULMONARY FIBROSIS, UNSPECIFIED Status: Acute Current Visit: Yes (7) Bronchiectasis SNOMED Code(s): 62412944 Code(s): J47.9 - BRONCHIECTASIS, UNCOMPLICATED Status: Acute Current Visit: Yes - Problem List Review Problem List Initiated/Reviewed/Updated: Yes - My Orders Last 24 Hours: My Active Orders 05/23/20 16:34 Metoprolol Tartrate [Lopressor] 5 mg IVPUSH Q4HR PRN 05/23/20 18:00 cefTRIAXone [Rocephin] 2 gm Sodium Chloride 0.9% [Normal Saline] 100 ml IV Q24H 05/23/20 21:00 Azithromycin [Zithromax] 500 mg Sodium Chloride 0.9% [Normal Saline (AdvBag)] 250 ml IV Q24H Enoxaparin [Lovenox] 50 mg SUBCUT BID 05/24/20 05:16 PROCALCITONIN [REF] Routine 05/24/20 06:00 Levothyroxine 25 mcg PO ACBREAKFAST 05/24/20 14:47 LORazepam [Ativan] 0.5 mg IVPUSH Q2H PRN 05/24/20 15:18 diazePAM [Valium] 2 mg PO QID PRN 05/24/20 21:00 Metoprolol Succinate [Toprol XL] 50 mg PO BEDTIME 05/25/20 05:11 C-REACTIVE PROTEIN [CHEM] AM CBC WITH AUTO DIFF [HEME] AM CMP [COMPREHENSIVE METABOLIC PN,CMP] [CHEM] AM DD [D-DIMER QUANTITATIVE] [COAG] AM MAGNESIUM [CHEM] AM PHOSPHORUS [CHEM] AM - Plan Plan:: Assessment 05/20/2020 * 78-year-old female with known Covid and pulmonary fibrosis with worsening oxygenation and increasing D-dimer. * Recent hospitalization for sepsis on April 27, 2020. D-dimer at that time was 17. * Oral thrush and vaginal candidiasis * History of pulmonary hypertension, pulmonary fibrosis, bronchiectasis, hypertension, congestive heart failure, severe valvular disease involving both the aortic valve and mitral valve, abdominal aortic aneurysm with endovascula r grafting Unfortunate patient is high risk for complications secondary to her multiple medical problems which include cardiac and respiratory disease. Patient is in her 80s, is on oxygen at baseline, heart failure and hypertension, has poor appetite, multiple medical problems. 05/21/2020 * Pneumonia due to COVID-19 * Pulmonary fibrosis and interstitial lung disease * Bronchiectasis * Oral and vaginal candidiasis * Pulmonary hypertension Patient has had an uneventful night and even some improvement in her oxygen saturations. She is in agreement to getting convalescent plasma. She was started on remdesivir yesterday. No antibiotics at this time. She was also started on nystatin and Diflucan for her candidiasis. CT of the chest performed yesterday was negative for pulmonary embolism. She did have an interval development of patchy areas of groundglass opacification compared to April 27. This is consistent with viral pneumonia. 05/22/2020 * Pneumonia due to COVID-19 * Pulmonary fibrosis and interstitial lung disease * Bronchiectasis * Oral and vaginal candidiasis * Pulmonary hypertension Patient continues on 2 to 3 L nasal cannula. She is generally without much change, but her CRP did go up to 11.8. D-dimer has not changed and is still 8.66. Fortunately, procalcitonin did come back low at 0.05. White count continues at 3.12. Blood pressure has been significantly elevated. 05/23/2020 * Pneumonia due to COVID-19 -deteriorated * Pulmonary fibrosis and interstitial lung disease * Bronchiectasis * Oral and vaginal candidiasis * Pulmonary hypertension * Depression Patient transferred to the ICU because of worsening respiratory status. She is currently on 6 L nasal cannula which is a significant increase. She was given a fluid challenge and she did have multiple episodes of tachycardia today requiring IV Lopressor. I discussed with her family and her about her CODE STATUS again. They are going to discuss among themselves about if she wants CPR. Currently she wants 3 attempts at CPR but does not want to be intubated. D-dimer increased difficulty today to 15 and C-reactive protein decreased to 5.9. Magnesium is 1.9, but phosphorus has decreased to 2.1. Albumin is 2.4 and TSH is low at 0.296. Procalcitonin is normal. 05/24/2020 * Pneumonia due to COVID-19 -deteriorated * Pulmonary fibrosis and interstitial lung disease * Bronchiectasis * Oral and vaginal candidiasisimproved * Pulmonary hypertension * Depression * Sinus tachycardia Patient has had significant worsening of respiratory status of the last 48 hours. She is currently on high flow nasal cannula and she has significant sinus tachycardia. She has received 2 doses of IV Lopressor for tachycardia. She had some improvement in her tachycardia when she was first put on high flow nasal cannula. Weight is essentially stable since admission. Plan * Transfer to ICU for closer observation * Start azithromycin and Rocephin * Remdesivir day 5 of 5 * Dexamethasone completed * 2 units convalescent plasma given * Hydralazine 10 mg every 4 hours as needed systolic blood pressure greater than 180 and diastolic blood pressure greater than 100 * Lopressor 5 mg IV as needed heart rate greater than 110 * Nystatin swish and spit 4 times daily * Aspirin 81 mg daily * Decrease levothyroxine to 25 mcg daily * I spoke with her and her son in regards to anticoagulation. Because of her increasing D-dimer and worsening respiratory status they agreed to put her on full dose Lovenox of 1 mg/kg twice daily. Informed consent and risk and benefits including bleeding were discussed. * Follow CBC, CMP, D-dimer, CRP, mag, Phos daily * Continue FiO2 to keep SPO2 between 88 and 94%. High flow nasal cannula at 50 L and 75% O2 * VTE prophylaxis with Lovenox. She did have a negative CTA. * CODE STATUS: DO NOT INTUBATE but wants "attempt at resuscitation" * Length of stay greater than 96 hours secondary to worsening hypoxemia from Covid.
[2020-05-24] MEDS: cefTRIAXone 2 GM in Sodium Chloride 0.9% 100 ML IV SCH (17:04)
[2020-05-24] MEDS: REMDESIVIR (EUA) 100 MG in Sodium Chloride 0.9% 100 ML IV SCH (17:09)
[2020-05-24] MEDS: Azithromycin 500 MG in Sodium Chloride 0.9% 250 ML IV SCH (20:17)
[2020-05-25] MEDS: Acetaminophen 325 MG Tab PO PRN ×4 (01:35→20:42)
[2020-05-25] MEDS: Diazepam 2 MG Tab PO PRN ×4 (01:36→20:41)
[2020-05-25] MEDS: Benzocaine/Cetylpyridinium/Menthol Lozenge MUCMEM PRN (03:09)
[2020-05-25] MEDS: Levothyroxine 25 MCG Tab PO SCH (06:33)
[2020-05-25] MEDS: Nystatin Susp 100,000 Unit/ML 5 ML Oral Syringe PO SCH ×4 (08:35→20:48)
[2020-05-25] MEDS: Trospium 20 MG Tab PO SCH ×2 (08:35→21:44)
[2020-05-25] MEDS: Enoxaparin 60 MG/0.6 ML Syringe SUBCUT SCH ×2 (08:35→20:46)
[2020-05-25] MEDS: Cholecalciferol (Vitamin D3) 25 MCG Tab PO SCH (08:36)
[2020-05-25] MEDS: Potassium Chloride 10 MEQ Tab.ER PO SCH (08:36)
[2020-05-25] MEDS: Metoprolol Succinate 50 MG Tab.ER PO SCH ×2 (08:36→20:37)
[2020-05-25] MEDS: Magnesium Oxide 400 MG Tab PO SCH ×2 (08:36→20:39)
[2020-05-25] MEDS: Aspirin 81 MG Tab.EC PO SCH (08:36)
[2020-05-25] MEDS: Albuterol 6.7 GM Inhaler INH PRN ×3 (08:44→16:35)
[2020-05-25] MEDS: Glycopyrrolate 15.6 MCG Cap.W.Dev Kit of 6 IH SCH ×2 (08:45→20:44)
[2020-05-25] MEDS: Pantoprazole 40 MG Tab.CR PO SCH (08:59)
[2020-05-25] MEDS: Fluticasone Propionate Nasal Spray 16 GM Bottle NASBOTH SCH (09:00)
[2020-05-25] MEDS: Sildenafil 20 MG Tab **PTOM PO SCH ×3 (09:01→20:41)
[2020-05-25] MEDS: IPRATROPIUM 0.03% SCH ×3 (09:02→21:12)
[2020-05-25] MEDS: Tocilizumab 400 MG in Sodium Chloride 0.9% 80 ML IV SCH ×2 (10:54→21:51)
[2020-05-25] MEDS ORDERED: Albumin 25% 12.5 GM/50 ML BAG IV ONE (11:00)
[2020-05-25] MEDS: cefTRIAXone 2 GM in Sodium Chloride 0.9% 100 ML IV SCH ×2 (16:42→17:02)
--- NOTE | 2020-05-25 19:11 | PCM.PN ---
- General Info Date of Service: 05/25/20 Admission Dx/Problem (Free Text): Admission Diagnosis/Problem Admission Diagnosis/Problem Viral pneumonia Subjective Update: Patient is in a much better mood today. She states she is feeling better. Appetite is improving, but still poor. - Review of Systems General: Reports: Fatigue HEENT: Reports: No Symptoms Pulmonary: Reports: Shortness of Breath, Cough Cardiovascular: Reports: No Symptoms Gastrointestinal: Reports: No Symptoms Skin: Reports: No Symptoms Neurological: Reports: No Symptoms - Patient Data Vitals - Most Recent: Last Vital Signs Temp 98 F 05/25/20 16:00 Pulse 91 05/25/20 08:36 Resp 22 H 05/25/20 16:00 BP 127/76 05/25/20 16:00 Pulse Ox 90 L 05/25/20 16:35 Weight - Most Recent: 117 lb I&O - Last 24 Hours: Intake & Output 05/25/20 05/25/20 05/25/20 06:59 14:59 22:59 Intake Total 250 600 550 Output Total 320 195 155 Balance -70 405 395 Lab Results Last 24 Hours: Laboratory Results - last 24 hr 05/24/20 05/25/20 05/25/20 Range/Units 05:16 05:43 05:43 WBC 7.53 (3.98-10.04) K/mm3 RBC 4.13 (3.98-5.22) M/mm3 Hgb 10.8 L (11.2-15.7) gm/dl Hct 36.1 (34.1-44.9) % MCV 87.4 (79.4-94.8) fl MCH 26.2 (25.6-32.2) pg MCHC 29.9 L (32.2-35.5) g/dl RDW Std Deviation 58.4 H (36.4-46.3) fL Plt Count 166 L (182-369) K/mm3 MPV 10.1 (9.4-12.3) fl Neut % (Auto) 92.4 H (34.0-71.1) % Lymph % (Auto) 4.2 L (19.3-51.7) % [place] % (Auto) 1.6 L (4.7-12.5) % Eos % (Auto) 1.3 (0.7-5.8) Baso % (Auto) 0.0 L (0.1-1.2) % Neut # (Auto) 6.95 H (1.56-6.13) K/mm3 Lymph # (Auto) 0.32 L (1.18-3.74) K/mm3 [place] # (Auto) 0.12 L (0.24-0.36) K/mm3 Eos # (Auto) 0.10 (0.04-0.36) K/mm3 Baso # (Auto) 0.00 L (0.01-0.08) K/mm3 Manual Slide Review Abnormal smear D-Dimer, Quantitative 5.52 H (0.19-0.50) mg/L Sodium (136-145) mEq/L Potassium (3.5-5.1) mEq/L Chloride (98-107) mEq/L Carbon Dioxide (21-32) mEq/L Anion Gap (5-15) BUN (7-18) mg/dL Creatinine (0.55-1.02) mg/dL Est Cr Clr Drug Dosing mL/min Estimated GFR (MDRD) (>60) mL/min BUN/Creatinine Ratio (14-18) Glucose (83-115) mg/dL Calcium (8.5-10.1) mg/dL Phosphorus (2.6-4.7) mg/dL Magnesium (1.8-2.4) mg/dl Total Bilirubin (0.2-1.0) mg/dL AST (15-37) U/L ALT (14-59) U/L Alkaline Phosphatase (46-116) U/L C-Reactive Protein (<1.0) mg/dL Total Protein (6.4-8.2) g/dl Albumin (3.4-5.0) g/dl Globulin gm/dL Albumin/Globulin Ratio (1-2) Procalcitonin 0.19 H (<0.10) ng/mL 05/25/20 Range/Units 05:43 WBC (3.98-10.04) K/mm3 RBC (3.98-5.22) M/mm3 Hgb (11.2-15.7) gm/dl Hct (34.1-44.9) % MCV (79.4-94.8) fl MCH (25.6-32.2) pg MCHC (32.2-35.5) g/dl RDW Std Deviation (36.4-46.3) fL Plt Count (182-369) K/mm3 MPV (9.4-12.3) fl Neut % (Auto) (34.0-71.1) % Lymph % (Auto) (19.3-51.7) % [place] % (Auto) (4.7-12.5) % Eos % (Auto) (0.7-5.8) Baso % (Auto) (0.1-1.2) % Neut # (Auto) (1.56-6.13) K/mm3 Lymph # (Auto) (1.18-3.74) K/mm3 [place] # (Auto) (0.24-0.36) K/mm3 Eos # (Auto) (0.04-0.36) K/mm3 Baso # (Auto) (0.01-0.08) K/mm3 Manual Slide Review D-Dimer, Quantitative (0.19-0.50) mg/L Sodium 144 (136-145) mEq/L Potassium 3.8 (3.5-5.1) mEq/L Chloride 107 (98-107) mEq/L Carbon Dioxide 32 (21-32) mEq/L Anion Gap 8.8 (5-15) BUN 18 (7-18) mg/dL Creatinine 0.8 (0.55-1.02) mg/dL Est Cr Clr Drug Dosing 42.88 mL/min Estimated GFR (MDRD) > 60 (>60) mL/min BUN/Creatinine Ratio 22.5 H (14-18) Glucose 136 H (83-115) mg/dL Calcium 8.3 L (8.5-10.1) mg/dL Phosphorus 2.9 (2.6-4.7) mg/dL Magnesium 2.0 (1.8-2.4) mg/dl Total Bilirubin 0.4 (0.2-1.0) mg/dL AST 24 (15-37) U/L ALT 21 (14-59) U/L Alkaline Phosphatase 112 (46-116) U/L C-Reactive Protein 26.8 H* (<1.0) mg/dL Total Protein 5.8 L (6.4-8.2) g/dl Albumin 1.9 L (3.4-5.0) g/dl Globulin 3.9 gm/dL Albumin/Globulin Ratio 0.5 L (1-2) Procalcitonin (<0.10) ng/mL Chin Results Last 24 Hours: Microbiology 05/20/20 17:56 Aerobic Blood Culture - Preliminary Blood - Venous NO GROWTH AFTER 5 DAYS Anaerobic Blood Culture - Preliminary NO GROWTH AFTER 5 DAYS 05/20/20 17:46 Aerobic Blood Culture - Preliminary Blood NO GROWTH AFTER 5 DAYS Anaerobic Blood Culture - Preliminary NO GROWTH AFTER 5 DAYS Med Orders - Current: Current Medications Acetaminophen (Tylenol) 650 mg PO Q4H PRN PRN Reason: Pain (Mild 1-3)/fever Last Admin: 05/25/20 16:42 Dose: 650 mg Documented by: Albuterol (Proventil Hfa) 0 gm INH Q2H PRN PRN Reason: Shortness of Breath Last Admin: 05/25/20 16:35 Dose: 2 puff Documented by: Aspirin (Halfprin) 81 mg PO DAILY [facility] Last Admin: 05/25/20 08:36 Dose: 81 mg Documented by: Benzocaine/Menthol (Cepacol Sore Throat) 1 lozenge MUCMEM Q2HR PRN PRN Reason: Dry mouth Last Admin: 05/25/20 03:09 Dose: 1 lozenge Documented by: Cholecalciferol (Vitamin D3) 50 mcg PO DAILY [facility] Last Admin: 05/25/20 08:36 Dose: 50 mcg Documented by: Diazepam (Valium) 1 - 2 mg PO Q4H PRN PRN Reason: Anxiety Last Admin: 05/25/20 16:41 Dose: 2 mg Documented by: Enoxaparin Sodium (Lovenox) 50 mg SUBCUT BID [facility] Last Admin: 05/25/20 08:35 Dose: 50 mg Documented by: Fluticasone Propionate (Flonase) 0 gm NASBOTH DAILY [facility] Last Admin: 05/25/20 09:00 Dose: 1 spray Documented by: Glycopyrrolate (Seebri Neohaler) 15.6 mcg IH BID [facility] Last Admin: 05/25/20 08:45 Dose: 1 cap Documented by: Hydralazine HCl (Apresoline) 10 mg IVPUSH Q4H PRN PRN Reason: Hypertension Last Admin: 05/23/20 10:08 Dose: 10 mg Documented by: Ceftriaxone Sodium 2 gm/ (Sodium Chloride) 100 mls @ 200 mls/hr IV Q24H [facility] Stop: 05/27/20 18:29 Last Admin: 05/25/20 17:02 Dose: Not Given Documented by: Azithromycin 500 mg/ Sodium (Chloride) 250 mls @ 250 mls/hr IV Q24H [facility] Stop: 05/25/20 21:59 Last Admin: 05/24/20 20:17 Dose: 250 mls/hr Documented by: Tocilizumab 400 mg/ Sodium (Chloride) 100 mls @ 100 mls/hr IV Q12H [facility] Stop: 05/25/20 22:59 Last Admin: 05/25/20 10:54 Dose: 100 mls/hr Documented by: Levothyroxine Sodium (Levothyroxine) 25 mcg PO ACBREAKFAST [facility] Last Admin: 05/25/20 06:33 Dose: 25 mcg Documented by: Loperamide HCl (Imodium) 2 mg PO Q6H PRN PRN Reason: Diarrhea Last Admin: 05/21/20 10:23 Dose: 2 mg Documented by: Lorazepam (Ativan) 0.5 mg IVPUSH Q2H PRN PRN Reason: Anxiety Magnesium Oxide (Magnesium Oxide) 400 mg PO BID [facility] Last Admin: 05/25/20 08:36 Dose: 400 mg Documented by: Metoprolol Succinate (Toprol Xl) 50 mg PO DAILY [facility] Last Admin: 05/25/20 08:36 Dose: 50 mg Documented by: Metoprolol Succinate (Toprol Xl) 50 mg PO BEDTIME [facility] Last Admin: 05/24/20 20:11 Dose: 50 mg Documented by: Metoprolol Tartrate (Lopressor) 5 mg IVPUSH Q4HR PRN PRN Reason: Tachycardia Last Admin: 05/24/20 15:05 Dose: 5 mg Documented by: Ipratropium 0.03% (Nasal [place] Ptom) 2 spray .XX TID [facility] Last Admin: 05/25/20 14:10 Dose: Not Given Documented by: Nystatin (Nystatin Oral Syringe) 500,000 unit PO QID [facility] Last Admin: 05/25/20 16:42 Dose: 500,000 unit Documented by: Ondansetron HCl (Zofran) 4 mg IV Q4H PRN PRN Reason: Nausea/Vomiting Last Admin: 05/23/20 08:17 Dose: 4 mg Documented by: Pantoprazole Sodium (Protonix) 40 mg PO DAILY [facility] Last Admin: 05/25/20 08:59 Dose: 40 mg Documented by: Potassium Chloride (Klor-Con 10) 10 meq PO DAILY [facility] Last Admin: 05/25/20 08:36 Dose: 10 meq Documented by: Sildenafil Citrate (Revatio) 20 mg PO TID [facility] Last Admin: 05/25/20 14:38 Dose: 20 mg Documented by: Sodium Chloride (Saline Flush) 10 ml FLUSH ASDIRECTED PRN PRN Reason: Keep Vein Open Trolamine Salicylate (Aspercreme 10%) 0 gm TOP Q6H PRN PRN Reason: Pain Trospium (Sanctura) 20 mg PO BID [facility] Last Admin: 05/25/20 08:35 Dose: 20 mg Documented by: Discontinued Medications Dexamethasone (Dexamethasone) 6 mg PO DAILY [facility] Stop: 05/23/20 09:01 Last Admin: 05/23/20 08:17 Dose: Not Given Documented by: Diazepam (Valium) 2 mg PO QID PRN PRN Reason: Anxiety Last Admin: 05/24/20 20:19 Dose: 2 mg Documented by: Enoxaparin Sodium (Lovenox) 40 mg SUBCUT DAILY [facility] Last Admin: 05/22/20 08:38 Dose: 40 mg Documented by: Enoxaparin Sodium (Lovenox) 40 mg SUBCUT BID [facility] Last Admin: 05/23/20 08:16 Dose: 40 mg Documented by: Fluconazole (Diflucan) 150 mg PO ONETIME ONE Stop: 05/20/20 22:16 Last Admin: 05/20/20 21:32 Dose: 150 mg Documented by: Furosemide (Lasix) 20 mg IVPUSH NOW ONE Stop: 05/22/20 10:16 Last Admin: 05/22/20 11:11 Dose: 20 mg Documented by: Furosemide (Lasix) 20 mg IVPUSH NOW ONE Stop: 05/24/20 15:31 Last Admin: 05/24/20 15:38 Dose: 20 mg Documented by: Remdesivir 200 mg/ Sodium (Chloride) 250 mls @ 250 mls/hr IV ONETIME ONE Stop: 05/20/20 18:59 Last Admin: 05/20/20 19:32 Dose: 250 mls/hr Documented by: Remdesivir 100 mg/ Sodium (Chloride) 100 mls @ 100 mls/hr IV Q24H [facility] Stop: 05/24/20 18:59 Last Admin: 05/24/20 17:09 Dose: 100 mls/hr Documented by: Sodium Chloride (Normal Saline) 45 mls @ 40 mls/hr IV ASDIRECTED [facility] Sodium Chloride (Normal Saline) 250 mls @ 100 mls/hr IV ASDIRECTED [facility] Stop: 05/21/20 23:00 Last Admin: 05/21/20 13:36 Dose: 100 mls/hr Documented by: Magnesium Sulfate 4 gm/ Premix 50 mls @ 12.5 mls/hr IV ONETIME ONE Stop: 05/22/20 13:12 Last Admin: 05/22/20 09:43 Dose: 12.5 mls/hr Documented by: Sodium Chloride (Normal Saline) 500 mls @ 250 mls/hr IV .BOLUS ONE Stop: 05/23/20 14:08 Last Admin: 05/23/20 12:27 Dose: 250 mls/hr Documented by: Azithromycin 500 mg/ Sodium (Chloride) 250 mls @ 250 mls/hr IV Q24H [facility] Stop: 05/25/20 18:59 Last Admin: 05/24/20 10:49 Dose: Not Given Documented by: Magnesium Sulfate 4 gm/ Premix 50 mls @ 12.5 mls/hr IV ONETIME ONE Stop: 05/24/20 13:43 Last Admin: 05/24/20 10:48 Dose: 12.5 mls/hr Documented by: Albumin Human (Flexbumin 25%) 12.5 gm in 50 mls @ 100 mls/hr IV ONETIME ONE Stop: 05/25/20 11:29 Last Admin: 05/25/20 10:54 Dose: 100 mls/hr Documented by: Iopamidol (Isovue-370 (76%)) 100 ml IVPUSH ONETIME ONE Stop: 05/20/20 20:56 Last Admin: 05/20/20 22:34 Dose: 100 ml Documented by: Levothyroxine Sodium (Synthroid) 50 mcg PO DAILY [facility] Last Admin: 05/23/20 08:16 Dose: Not Given Documented by: Metoprolol Tartrate (Lopressor) 5 mg IV ONETIME [facility] Stop: 05/23/20 10:30 Metoprolol Tartrate (Lopressor) 5 mg IVPUSH ONETIME ONE Stop: 05/23/20 11:36 Last Admin: 05/23/20 11:38 Dose: 5 mg Documented by: Ondansetron HCl (Zofran) Confirm Administered Dose 4 mg .ROUTE .STK-MED ONE Stop: 05/23/20 08:16 Last Admin: 05/23/20 09:47 Dose: Not Given Documented by: Potassium Chloride (Klor-Con M20) 40 meq PO ONETIME ONE Stop: 05/20/20 21:11 Last Admin: 05/20/20 20:45 Dose: 40 meq Documented by: Potassium Chloride (Klor-Con M20) 40 meq PO ONETIME ONE Stop: 05/22/20 09:14 Last Admin: 05/22/20 09:44 Dose: 40 meq Documented by: Sildenafil Citrate (Revatio) 20 mg PO TID [facility] Last Admin: 05/20/20 22:10 Dose: Not Given Documented by: Sodium Chloride (Saline Flush) 10 ml FLUSH ONETIME PRN PRN Reason: Keep Vein Open Trolamine Salicylate (Aspercreme 10%) 0 gm TOP Q1H PRN PRN Reason: Pain - Exam Quality Assessment: Supplemental Oxygen (High flow nasal cannula) General: Alert, Oriented HEENT: Pupils Equal, Mucous Membr. Moist/[place] Neck: Supple Lungs: Rales (Scattered throughout). No: Normal Respiratory Effort (Increased respiratory rate and effort) Cardiovascular: Regular Rate, Regular Rhythm GI/Abdominal Exam: Normal Bowel Sounds, Soft, Non-Tender, No Organomegaly, No Distention, No Abnormal Bruit Extremities: Normal Inspection, Normal Range of Motion, Non-Tender, No Pedal Edema, Normal Capillary Refill Psy/Mental Status: Alert, Normal Affect, Normal Mood Sepsis Event Note - Evaluation Sepsis Screening Result: Severe Sepsis Risk - Focused Exam Vital Signs: Vital Signs Temp Pulse Resp BP BP Pulse Ox Pulse Ox 05/25/20 16:35 90 L 05/25/20 16:00 98 F 22 H 127/76 90 L 05/25/20 14:14 95 05/25/20 14:06 95 05/25/20 13:33 93 L 05/25/20 12:00 98.0 F 20 122/81 95 05/25/20 09:31 90 L 05/25/20 08:45 94 L 05/25/20 08:36 91 161/75 H 05/25/20 08:00 98.2 F 22 H 161/75 H 93 L - Problem List & Annotations (1) Pneumonia due to COVID-19 virus SNOMED Code(s): 133014833068286066 Code(s): U07.1 - COVID-19; J12.89 - OTHER VIRAL PNEUMONIA Status: Acute Current Visit: Yes (2) Pulmonary hypertension SNOMED Code(s): 63598026 Code(s): I27.20 - PULMONARY HYPERTENSION, UNSPECIFIED Status: Acute Current Visit: No (3) CHF (congestive heart failure) SNOMED Code(s): 45226040 Code(s): I50.9 - HEART FAILURE, UNSPECIFIED Status: Acute Current Visit: Yes (4) Thrush, oral SNOMED Code(s): 83508367 Code(s): B37.0 - CANDIDAL STOMATITIS Status: Acute Current Visit: Yes (5) Vaginal thrush SNOMED Code(s): 88825783 Code(s): B37.3 - CANDIDIASIS OF VULVA AND VAGINA Status: Acute Current Visit: Yes (6) Pulmonary fibrosis SNOMED Code(s): 08155233 Code(s): J84.10 - PULMONARY FIBROSIS, UNSPECIFIED Status: Acute Current Visit: Yes (7) Bronchiectasis SNOMED Code(s): 32084935 Code(s): J47.9 - BRONCHIECTASIS, UNCOMPLICATED Status: Acute Current Visit: Yes - Problem List Review Problem List Initiated/Reviewed/Updated: Yes - My Orders Last 24 Hours: My Active Orders 05/24/20 21:00 Metoprolol Succinate [Toprol XL] 50 mg PO BEDTIME 05/24/20 23:45 diazePAM [Valium] 1 - 2 mg PO Q4H PRN 05/25/20 10:00 Tocilizumab [Actemra] 400 mg Sodium Chloride 0.9% [Normal Saline] 80 ml IV Q12H - Plan Plan:: Assessment 05/20/2020 * 78-year-old female with known Covid and pulmonary fibrosis with worsening oxygenation and increasing D-dimer. * Recent hospitalization for sepsis on April 27, 2020. D-dimer at that time was 17. * Oral thrush and vaginal candidiasis * History of pulmonary hypertension, pulmonary fibrosis, bronchiectasis, hypertension, congestive heart failure, severe valvular disease involving both the aortic valve and mitral valve, abdominal aortic aneurysm with endovascular grafting Unfortunate patient is high risk for complications secondary to her multiple medical problems which include cardiac and respiratory disease. Patient is in her 80s, is on oxygen at baseline, heart failure and hypertension, has poor appetite, multiple medical problems. 05/21/2020 * Pneumonia due to COVID-19 * Pulmonary fibrosis and interstitial lung disease * Bronchiectasis * Oral and vaginal candidiasis * Pulmonary hypertension Patient has had an uneventful night and even some improvement in her oxygen saturations. She is in agreement to getting convalescent plasma. She was started on remdesivir yesterday. No antibiotics at this time. She was also started on nystatin and Diflucan for her candidiasis. CT of the chest performed yesterday was negative for pulmonary embolism. She did have an interval development of patchy areas of groundglass opacification compared to April 27. This is consistent with viral pneumonia. 05/22/2020 * Pneumonia due to COVID-19 * Pulmonary fibrosis and interstitial lung disease * Bronchiectasis * Oral and vaginal candidiasis * Pulmonary hypertension Patient continues on 2 to 3 L nasal cannula. She is generally without much change, but her CRP did go up to 11.8. D-dimer has not changed and is still 8.66. Fortunately, procalcitonin did come back low at 0.05. White count continues at 3.12. Blood pressure has been significantly elevated. 05/23/2020 * Pneumonia due to COVID-19 -deteriorated * Pulmonary fibrosis and interstitial lung disease * Bronchiectasis * Oral and vaginal candidiasis * Pulmonary hypertension * Depression Patient transferred to the ICU because of worsening respiratory status. She is currently on 6 L nasal cannula which is a significant increase. She was given a fluid challenge and she did have multiple episodes of tachycardia today requiring IV Lopressor. I discussed with her family and her about her CODE STATUS again. They are going to discuss among themselves about if she wants CPR. Currently she wants 3 attempts at CPR but does not want to be intubated. D-dimer increased difficulty today to 15 and C-reactive protein decreased to 5.9. Magnesium is 1.9, but phosphorus has decreased to 2.1. Albumin is 2.4 and TSH is low at 0.296. Procalcitonin is normal. 05/24/2020 * Pneumonia due to COVID-19 -deteriorated * Pulmonary fibrosis and interstitial lung disease * Bronchiectasis * Oral and vaginal candidiasisimproved * Pulmonary hypertension * Depression * Sinus tachycardia Patient has had significant worsening of respiratory status of the last 48 hours. She is currently on high flow nasal cannula and she has significant sinus tachycardia. She has received 2 doses of IV Lopressor for tachycardia. She had some improvement in her tachycardia when she was first put on high flow nasal cannula. Weight is essentially stable since admission. 05/25/2020 * Pneumonia due to COVID-19 -stable on high flow nasal cannula -completed remdesivir, dexamethasone, and convalescent plasma * Pulmonary fibrosis and interstitial lung disease * Bronchiectasis * Oral and vaginal candidiasisimproved * Pulmonary hypertension * Hypertension * Hypothyroidism-levothyroxine decreased to 25 mcg daily after low TSH * Depression * Sinus tachycardia -improved * Hypoalbuminemiaalbumin 1.9 Patient has significant worsening of her CRP today to 26.8. D-dimer has improved to 5.52. She was switched to Lovenox 1 mg/kg twice daily yesterday. Informed consent was obtained. WBC 7.5. Estimated GFR greater than 60. Although patient's CRP worsened and she still is on high flow nasal cannula she is clinically stable. She continues to have a very bad prognosis. Plan * ICU status * Continue azithromycin and Rocephin * Lopressor 5 mg IV as needed heart rate greater than 110 * Nystatin swish and spit 4 times daily * Aspirin 81 mg daily * Decrease levothyroxine to 25 mcg daily * Start Actemra 400 mg now and repeat in 12 hours * Albumin 25 g x 1 * Follow CBC, CMP, D-dimer, CRP, mag, Phos daily * Continue FiO2 to keep SPO2 between 88 and 94%. High flow nasal cannula at 50 L and 60% O2 * VTE prophylaxis with Lovenox. She did have a negative CTA. * CODE STATUS: DO NOT INTUBATE but wants "attempt at resuscitation" * Length of stay greater than 96 hours secondary to worsening hypoxemia from Covid.
[2020-05-25] MEDS: Azithromycin 500 MG in Sodium Chloride 0.9% 250 ML IV SCH (20:49)
[2020-05-26] MEDS: Levothyroxine 25 MCG Tab PO SCH (06:16)
[2020-05-26] MEDS: Albuterol 6.7 GM Inhaler INH PRN ×3 (08:12→22:00)
[2020-05-26] MEDS: Glycopyrrolate 15.6 MCG Cap.W.Dev Kit of 6 IH SCH ×2 (08:12→22:00)
[2020-05-26] MEDS: Enoxaparin 60 MG/0.6 ML Syringe SUBCUT SCH ×2 (08:57→20:08)
[2020-05-26] MEDS: Nystatin Susp 100,000 Unit/ML 5 ML Oral Syringe PO SCH ×4 (08:58→20:08)
[2020-05-26] MEDS: Diazepam 2 MG Tab PO PRN ×2 (08:58→20:08)
[2020-05-26] MEDS: Potassium Chloride 10 MEQ Tab.ER PO SCH (08:58)
[2020-05-26] MEDS: Aspirin 81 MG Tab.EC PO SCH (08:58)
[2020-05-26] MEDS: Trospium 20 MG Tab PO SCH ×2 (08:59→20:09)
[2020-05-26] MEDS: Metoprolol Succinate 50 MG Tab.ER PO SCH ×2 (08:59→20:12)
[2020-05-26] MEDS: Acetaminophen 325 MG Tab PO PRN ×2 (08:59→20:09)
[2020-05-26] MEDS: Cholecalciferol (Vitamin D3) 25 MCG Tab PO SCH (08:59)
[2020-05-26] MEDS: Magnesium Oxide 400 MG Tab PO SCH ×2 (08:59→20:10)
[2020-05-26] MEDS: Pantoprazole 40 MG Tab.CR PO SCH (09:00)
[2020-05-26] MEDS: Sildenafil 20 MG Tab **PTOM PO SCH ×3 (09:00→20:10)
[2020-05-26] MEDS: Fluticasone Propionate Nasal Spray 16 GM Bottle NASBOTH SCH (09:00)
[2020-05-26] MEDS: IPRATROPIUM 0.03% SCH ×3 (11:33→20:14)
--- NOTE | 2020-05-26 15:40 | PCM.PN ---
- General Info Date of Service: 05/26/20 Functional Status: Reports: Tolerating Diet - Review of Systems General: Reports: Weakness, Fatigue, Malaise HEENT: Reports: No Symptoms Pulmonary: Reports: Shortness of Breath Cardiovascular: Reports: No Symptoms Gastrointestinal: Reports: No Symptoms Genitourinary: Reports: No Symptoms Musculoskeletal: Reports: No Symptoms Skin: Reports: No Symptoms Neurological: Reports: No Symptoms Psychiatric: Reports: No Symptoms - Patient Data Vitals - Most Recent: Last Vital Signs Temp 37.3 C 05/26/20 12:00 Pulse 99 05/26/20 08:59 Resp 18 05/26/20 12:00 BP 138/74 05/26/20 12:00 Pulse Ox 90 L 05/26/20 12:16 Weight - Most Recent: 56.784 kg I&O - Last 24 Hours: Intake & Output 05/26/20 05/26/20 05/26/20 06:59 14:59 22:59 Intake Total 980 120 Output Total 148 110 Balance 832 10 Lab Results Last 24 Hours: Laboratory Results - last 24 hr 05/26/20 05/26/20 05/26/20 Range/Units 08:32 08:32 08:32 WBC 4.62 (3.98-10.04) K/mm3 RBC 4.23 (3.98-5.22) M/mm3 Hgb 11.2 (11.2-15.7) gm/dl Hct 37.4 (34.1-44.9) % MCV 88.4 (79.4-94.8) fl MCH 26.5 (25.6-32.2) pg MCHC 29.9 L (32.2-35.5) g/dl RDW Std Deviation 60.0 H (36.4-46.3) fL Plt Count 191 (182-369) K/mm3 MPV 10.4 (9.4-12.3) fl Neut % (Auto) 88.3 H (34.0-71.1) % Lymph % (Auto) 7.6 L (19.3-51.7) % Bell % (Auto) 1.5 L (4.7-12.5) % Eos % (Auto) 2.2 (0.7-5.8) Baso % (Auto) 0.0 L (0.1-1.2) % Neut # (Auto) 4.08 (1.56-6.13) K/mm3 Lymph # (Auto) 0.35 L (1.18-3.74) K/mm3 Bell # (Auto) 0.07 L (0.24-0.36) K/mm3 Eos # (Auto) 0.10 (0.04-0.36) K/mm3 Baso # (Auto) 0.00 L (0.01-0.08) K/mm3 Manual Slide Review Abnormal smear D-Dimer, Quantitative 7.51 H (0.19-0.50) mg/L Sodium 141 (136-145) mEq/L Potassium 4.5 (3.5-5.1) mEq/L Chloride 105 (98-107) mEq/L Carbon Dioxide 33 H (21-32) mEq/L Anion Gap 7.5 (5-15) BUN 19 H (7-18) mg/dL Creatinine 0.8 (0.55-1.02) mg/dL Est Cr Clr Drug Dosing 42.88 mL/min Estimated GFR (MDRD) > 60 (>60) mL/min BUN/Creatinine Ratio 23.8 H (14-18) Glucose 127 H (83-115) mg/dL Calcium 8.4 L (8.5-10.1) mg/dL Phosphorus 2.2 L (2.6-4.7) mg/dL Magnesium 1.9 (1.8-2.4) mg/dl Total Bilirubin 0.3 (0.2-1.0) mg/dL AST 27 (15-37) U/L ALT 23 (14-59) U/L Alkaline Phosphatase 153 H (46-116) U/L C-Reactive Protein 20.3 H* (<1.0) mg/dL Total Protein 6.4 (6.4-8.2) g/dl Albumin 2.1 L (3.4-5.0) g/dl Globulin 4.3 gm/dL Albumin/Globulin Ratio 0.5 L (1-2) Chin Results Last 24 Hours: Microbiology 05/20/20 17:56 Aerobic Blood Culture - Preliminary Blood - Venous NO GROWTH AFTER 5 DAYS Anaerobic Blood Culture - Preliminary NO GROWTH AFTER 5 DAYS 05/20/20 17:46 Aerobic Blood Culture - Preliminary Blood NO GROWTH AFTER 5 DAYS Anaerobic Blood Culture - Preliminary NO GROWTH AFTER 5 DAYS Med Orders - Current: Current Medications Acetaminophen (Tylenol) 650 mg PO Q4H PRN PRN Reason: Pain (Mild 1-3)/fever Last Admin: 05/26/20 08:59 Dose: 650 mg Documented by: Albuterol (Proventil Hfa) 0 gm INH Q2H PRN PRN Reason: Shortness of Breath Last Admin: 05/26/20 08:12 Dose: 2 puff Documented by: Aspirin (Halfprin) 81 mg PO DAILY [facility] Last Admin: 05/26/20 08:58 Dose: 81 mg Documented by: Benzocaine/Menthol (Cepacol Sore Throat) 1 lozenge MUCMEM Q2HR PRN PRN Reason: Dry mouth Last Admin: 05/25/20 03:09 Dose: 1 lozenge Documented by: Cholecalciferol (Vitamin D3) 50 mcg PO DAILY [facility] Last Admin: 05/26/20 08:59 Dose: 50 mcg Documented by: Diazepam (Valium) 1 - 2 mg PO Q4H PRN PRN Reason: Anxiety Last Admin: 05/26/20 08:58 Dose: 2 mg Documented by: Enoxaparin Sodium (Lovenox) 50 mg SUBCUT BID [facility] Last Admin: 05/26/20 08:57 Dose: 50 mg Documented by: Fluticasone Propionate (Flonase) 0 gm NASBOTH DAILY [facility] Last Admin: 05/26/20 09:00 Dose: 1 spray Documented by: Glycopyrrolate (Seebri Neohaler) 15.6 mcg IH BID [facility] Last Admin: 05/26/20 08:12 Dose: 1 cap Documented by: Hydralazine HCl (Apresoline) 10 mg IVPUSH Q4H PRN PRN Reason: Hypertension Last Admin: 05/23/20 10:08 Dose: 10 mg Documented by: Ceftriaxone Sodium 2 gm/ (Sodium Chloride) 100 mls @ 200 mls/hr IV Q24H [facility] Stop: 05/27/20 18:29 Last Admin: 05/25/20 17:02 Dose: Not Given Documented by: Levothyroxine Sodium (Levothyroxine) 25 mcg PO ACBREAKFAST [facility] Last Admin: 05/26/20 06:16 Dose: 25 mcg Documented by: Loperamide HCl (Imodium) 2 mg PO Q6H PRN PRN Reason: Diarrhea Last Admin: 05/21/20 10:23 Dose: 2 mg Documented by: Lorazepam (Ativan) 0.5 mg IVPUSH Q2H PRN PRN Reason: Anxiety Magnesium Oxide (Magnesium Oxide) 400 mg PO BID [facility] Last Admin: 05/26/20 08:59 Dose: 400 mg Documented by: Metoprolol Succinate (Toprol Xl) 50 mg PO DAILY [facility] Last Admin: 05/26/20 08:59 Dose: 50 mg Documented by: Metoprolol Succinate (Toprol Xl) 50 mg PO BEDTIME [facility] Last Admin: 05/25/20 20:37 Dose: 50 mg Documented by: Metoprolol Tartrate (Lopressor) 5 mg IVPUSH Q4HR PRN PRN Reason: Tachycardia Last Admin: 05/24/20 15:05 Dose: 5 mg Documented by: Ipratropium 0.03% (Nasal [place] Ptom) 2 spray .XX TID [facility] Last Admin: 05/26/20 14:03 Dose: Not Given Documented by: Nystatin (Nystatin Oral Syringe) 500,000 unit PO QID [facility] Last Admin: 05/26/20 14:02 Dose: 500,000 unit Documented by: Ondansetron HCl (Zofran) 4 mg IV Q4H PRN PRN Reason: Nausea/Vomiting Last Admin: 05/23/20 08:17 Dose: 4 mg Documented by: Pantoprazole Sodium (Protonix) 40 mg PO DAILY [facility] Last Admin: 05/26/20 09:00 Dose: 40 mg Documented by: Potassium Chloride (Klor-Con 10) 10 meq PO DAILY [facility] Last Admin: 05/26/20 08:58 Dose: 10 meq Documented by: Sildenafil Citrate (Revatio) 20 mg PO TID [facility] Last Admin: 05/26/20 15:23 Dose: 20 mg Documented by: Sodium Chloride (Saline Flush) 10 ml FLUSH ASDIRECTED PRN PRN Reason: Keep Vein Open Trolamine Salicylate (Aspercreme 10%) 0 gm TOP Q6H PRN PRN Reason: Pain Trospium (Sanctura) 20 mg PO BID [facility] Last Admin: 05/26/20 08:59 Dose: 20 mg Documented by: Discontinued Medications Dexamethasone (Dexamethasone) 6 mg PO DAILY [facility] Stop: 05/23/20 09:01 Last Admin: 05/23/20 08:17 Dose: Not Given Documented by: Diazepam (Valium) 2 mg PO QID PRN PRN Reason: Anxiety Last Admin: 05/24/20 20:19 Dose: 2 mg Documented by: Enoxaparin Sodium (Lovenox) 40 mg SUBCUT DAILY [facility] Last Admin: 05/22/20 08:38 Dose: 40 mg Documented by: Enoxaparin Sodium (Lovenox) 40 mg SUBCUT BID [facility] Last Admin: 05/23/20 08:16 Dose: 40 mg Documented by: Fluconazole (Diflucan) 150 mg PO ONETIME ONE Stop: 05/20/20 22:16 Last Admin: 05/20/20 21:32 Dose: 150 mg Documented by: Furosemide (Lasix) 20 mg IVPUSH NOW ONE Stop: 05/22/20 10:16 Last Admin: 05/22/20 11:11 Dose: 20 mg Documented by: Furosemide (Lasix) 20 mg IVPUSH NOW ONE Stop: 05/24/20 15:31 Last Admin: 05/24/20 15:38 Dose: 20 mg Documented by: Remdesivir 200 mg/ Sodium (Chloride) 250 mls @ 250 mls/hr IV ONETIME ONE Stop: 05/20/20 18:59 Last Admin: 05/20/20 19:32 Dose: 250 mls/hr Documented by: Remdesivir 100 mg/ Sodium (Chloride) 100 mls @ 100 mls/hr IV Q24H [facility] Stop: 05/24/20 18:59 Last Admin: 05/24/20 17:09 Dose: 100 mls/hr Documented by: Sodium Chloride (Normal Saline) 45 mls @ 40 mls/hr IV ASDIRECTED [facility] Sodium Chloride (Normal Saline) 250 mls @ 100 mls/hr IV ASDIRECTED [facility] Stop: 05/21/20 23:00 Last Admin: 05/21/20 13:36 Dose: 100 mls/hr Documented by: Magnesium Sulfate 4 gm/ Premix 50 mls @ 12.5 mls/hr IV ONETIME ONE Stop: 05/22/20 13:12 Last Admin: 05/22/20 09:43 Dose: 12.5 mls/hr Documented by: Sodium Chloride (Normal Saline) 500 mls @ 250 mls/hr IV .BOLUS ONE Stop: 05/23/20 14:08 Last Admin: 05/23/20 12:27 Dose: 250 mls/hr Documented by: Azithromycin 500 mg/ Sodium (Chloride) 250 mls @ 250 mls/hr IV Q24H [facility] Stop: 05/25/20 18:59 Last Admin: 05/24/20 10:49 Dose: Not Given Documented by: Azithromycin 500 mg/ Sodium (Chloride) 250 mls @ 250 mls/hr IV Q24H [facility] Stop: 05/25/20 21:59 Last Admin: 05/25/20 20:49 Dose: 250 mls/hr Documented by: Magnesium Sulfate 4 gm/ Premix 50 mls @ 12.5 mls/hr IV ONETIME ONE Stop: 05/24/20 13:43 Last Admin: 05/24/20 10:48 Dose: 12.5 mls/hr Documented by: Tocilizumab 400 mg/ Sodium (Chloride) 100 mls @ 100 mls/hr IV Q12H [facility] Stop: 05/25/20 22:59 Last Admin: 05/25/20 21:51 Dose: 100 mls/hr Documented by: Albumin Human (Flexbumin 25%) 12.5 gm in 50 mls @ 100 mls/hr IV ONETIME ONE Stop: 05/25/20 11:29 Last Admin: 05/25/20 10:54 Dose: 100 mls/hr Documented by: Iopamidol (Isovue-370 (76%)) 100 ml IVPUSH ONETIME ONE Stop: 05/20/20 20:56 Last Admin: 05/20/20 22:34 Dose: 100 ml Documented by: Levothyroxine Sodium (Synthroid) 50 mcg PO DAILY [facility] Last Admin: 05/23/20 08:16 Dose: Not Given Documented by: Metoprolol Tartrate (Lopressor) 5 mg IV ONETIME [facility] Stop: 05/23/20 10:30 Metoprolol Tartrate (Lopressor) 5 mg IVPUSH ONETIME ONE Stop: 05/23/20 11:36 Last Admin: 05/23/20 11:38 Dose: 5 mg Documented by: Ondansetron HCl (Zofran) Confirm Administered Dose 4 mg .ROUTE .STK-MED ONE Stop: 05/23/20 08:16 Last Admin: 05/23/20 09:47 Dose: Not Given Documented by: Potassium Chloride (Klor-Con M20) 40 meq PO ONETIME ONE Stop: 05/20/20 21:11 Last Admin: 05/20/20 20:45 Dose: 40 meq Documented by: Potassium Chloride (Klor-Con M20) 40 meq PO ONETIME ONE Stop: 05/22/20 09:14 Last Admin: 05/22/20 09:44 Dose: 40 meq Documented by: Sildenafil Citrate (Revatio) 20 mg PO TID [facility] Last Admin: 05/20/20 22:10 Dose: Not Given Documented by: Sodium Chloride (Saline Flush) 10 ml FLUSH ONETIME PRN PRN Reason: Keep Vein Open Trolamine Salicylate (Aspercreme 10%) 0 gm TOP Q1H PRN PRN Reason: Pain - Exam Quality Assessment: Supplemental Oxygen, DVT Prophylaxis General: Alert, Cooperative HEENT: Pupils Equal, Pupils Reactive, EOMI Neck: Trachea Midline Lungs: Normal Respiratory Effort, Decreased Breath Sounds, Rales Cardiovascular: Regular Rate, Regular Rhythm GI/Abdominal Exam: Normal Bowel Sounds, Soft, Non-Tender (Female) Exam: Deferred Back Exam: Normal Inspection Extremities: Normal Inspection, Normal Capillary Refill Skin: Warm, Dry, Intact Neurological: No New Focal Deficit Psy/Mental Status: Alert Sepsis Event Note - Evaluation Sepsis Screening Result: Severe Sepsis Risk - Focused Exam Vital Signs: Vital Signs Temp Pulse Resp BP BP Pulse Ox Pulse Ox 05/26/20 12:16 90 L 05/26/20 12:01 92 L 05/26/20 12:00 37.3 C 18 138/74 93 L 05/26/20 08:59 99 145/68 H 05/26/20 08:13 89 L 05/26/20 08:00 37.3 C 20 145/68 H 93 L - Problem List & Annotations (1) Bronchiectasis SNOMED Code(s): 70881796 Code(s): J47.9 - BRONCHIECTASIS, UNCOMPLICATED Status: Acute Current Visit: Yes (2) CHF (congestive heart failure) SNOMED Code(s): 20376957 Code(s): I50.9 - HEART FAILURE, UNSPECIFIED Status: Acute Current Visit: Yes (3) Pneumonia due to COVID-19 virus SNOMED Code(s): 351582228438098653 Code(s): U07.1 - COVID-19; J12.89 - OTHER VIRAL PNEUMONIA Status: Acute Current Visit: Yes (4) Pulmonary fibrosis SNOMED Code(s): 96828301 Code(s): J84.10 - PULMONARY FIBROSIS, UNSPECIFIED Status: Acute Current Visit: Yes (5) Thrush, oral SNOMED Code(s): 89692640 Code(s): B37.0 - CANDIDAL STOMATITIS Status: Acute Current Visit: Yes (6) Vaginal thrush SNOMED Code(s): 95690176 Code(s): B37.3 - CANDIDIASIS OF VULVA AND VAGINA Status: Acute Current Visit: Yes (7) Abdominal pain SNOMED Code(s): 83798829 Code(s): R10.9 - UNSPECIFIED ABDOMINAL PAIN Status: Acute Current Visit: No Qualifiers: Abdominal location: right upper quadrant Qualified Code(s): R10.11 - Right upper quadrant pain (8) Aortic arch dissection SNOMED Code(s): 76089974089011 Code(s): I71.01 - DISSECTION OF THORACIC AORTA Status: Acute Current Visit: No - Problem List Review Problem List Initiated/Reviewed/Updated: Yes - Plan Plan:: Assessment 05/20/2020 * 78-year-old female with known Covid and pulmonary fibrosis with worsening oxygenation and increasing D-dimer. * Recent hospitalization for sepsis on April 27, 2020. D-dimer at that time was 17. * Oral thrush and vaginal candidiasis * History of pulmonary hypertension, pulmonary fibrosis, bronchiectasis, hypertension, congestive heart failure, severe valvular disease involving both the aortic valve and mitral valve, abdominal aortic aneurysm with endovascular grafting Unfortunate patient is high risk for complications secondary to her multiple medical problems which include cardiac and respiratory disease. Patient is in her 80s, is on oxygen at baseline, heart failure and hypertension, has poor appetite, multiple medical problems. 05/21/2020 * Pneumonia due to COVID-19 * Pulmonary fibrosis and interstitial lung disease * Bronchiectasis * Oral and vaginal candidiasis * Pulmonary hypertension Patient has had an uneventful night and even some improvement in her oxygen saturations. She is in agreement to getting convalescent plasma. She was started on remdesivir yesterday. No antibiotics at this time. She was also started on nystatin and Diflucan for her candidiasis. CT of the chest performed yesterday was negative for pulmonary embolism. She did have an interval development of patchy areas of groundglass opacification compared to April 27. This is consistent with viral pneumonia. 05/22/2020 * Pneumonia due to COVID-19 * Pulmonary fibrosis and interstitial lung disease * Bronchiectasis * Oral and vaginal candidiasis * Pulmonary hypertension Patient continues on 2 to 3 L nasal cannula. She is generally without much change, but her CRP did go up to 11.8. D-dimer has not changed and is still 8.66. Fortunately, procalcitonin did come back low at 0.05. White count continues at 3.12. Blood pressure has been significantly elevated. 05/23/2020 * Pneumonia due to COVID-19 -deteriorated * Pulmonary fibrosis and interstitial lung disease * Bronchiectasis * Oral and vaginal candidiasis * Pulmonary hypertension * Depression Patient transferred to the ICU because of worsening respiratory status. She is currently on 6 L nasal cannula which is a significant increase. She was given a fluid challenge and she did have multiple episodes of tachycardia today requiring IV Lopressor. I discussed with her family and her about her CODE STATUS again. They are going to discuss among themselves about if she wants CPR. Currently she wants 3 attempts at CPR but does not want to be intubated. D-dimer increased difficulty today to 15 and C-reactive protein decreased to 5.9. Magnesium is 1.9, but phosphorus has decreased to 2.1. Albumin is 2.4 and TSH is low at 0.296. Procalcitonin is normal. 05/24/2020 * Pneumonia due to COVID-19 -deteriorated * Pulmonary fibrosis and interstitial lung disease * Bronchiectasis * Oral and vaginal candidiasisimproved * Pulmonary hypertension * Depression * Sinus tachycardia Patient has had significant worsening of respiratory status of the last 48 hours. She is currently on high flow nasal cannula and she has significant sinus tachycardia. She has received 2 doses of IV Lopressor for tachycardia. She had some improvement in her tachycardia when she was first put on high flow nasal cannula. Weight is essentially stable since admission. 05/25/2020 * Pneumonia due to COVID-19 -stable on high flow nasal cannula -completed remdesivir, dexamethasone, and convalescent plasma * Pulmonary fibrosis and interstitial lung disease * Bronchiectasis * Oral and vaginal candidiasisimproved * Pulmonary hypertension * Hypertension * Hypothyroidism-levothyroxine decreased to 25 mcg daily after low TSH * Depression * Sinus tachycardia -improved * Hypoalbuminemiaalbumin 1.9 Patient has significant worsening of her CRP today to 26.8. D-dimer has improved to 5.52. She was switched to Lovenox 1 mg/kg twice daily yesterday. Informed consent was obtained. WBC 7.5. Estimated GFR greater than 60. Although patient's CRP worsened and she still is on high flow nasal cannula she is clinically stable. She continues to have a very bad prognosis. Plan * ICU status * Lopressor 5 mg IV as needed heart rate greater than 110 * Nystatin swish and spit 4 times daily * Aspirin 81 mg daily * Decrease levothyroxine to 25 mcg daily * Start Actemra 400 mg now and repeat in 12 hours * Follow CBC, CMP, D-dimer, CRP, mag, Phos daily * HFNC, 55/60 * Lovenox 50 mg every 12 hours; negative CTA. * CODE STATUS: DO NOT INTUBATE but wants "attempt at resuscitation" * Length of stay greater than 96 hours secondary to worsening hypoxemia from Covid.
[2020-05-26] MEDS: cefTRIAXone 2 GM in Sodium Chloride 0.9% 100 ML IV SCH (18:29)
[2020-05-26] MEDS: Docusate Sodium 100 MG Cap PO PRN (18:45)
[2020-05-26] MEDS: Benzocaine/Cetylpyridinium/Menthol Lozenge MUCMEM PRN (20:17)
[2020-05-27] MEDS: Albuterol 6.7 GM Inhaler INH PRN ×4 (04:47→21:37)
[2020-05-27] MEDS: Levothyroxine 25 MCG Tab PO SCH (06:15)
[2020-05-27] MEDS: Glycopyrrolate 15.6 MCG Cap.W.Dev Kit of 6 IH SCH ×2 (08:32→21:37)
[2020-05-27] MEDS: Cholecalciferol (Vitamin D3) 25 MCG Tab PO SCH (08:41)
[2020-05-27] MEDS: Metoprolol Succinate 50 MG Tab.ER PO SCH ×2 (08:42→20:40)
[2020-05-27] MEDS: Magnesium Oxide 400 MG Tab PO SCH ×2 (08:42→20:41)
[2020-05-27] MEDS: Potassium Chloride 10 MEQ Tab.ER PO SCH (08:42)
[2020-05-27] MEDS: Aspirin 81 MG Tab.EC PO SCH (08:42)
[2020-05-27] MEDS: Trospium 20 MG Tab PO SCH ×2 (08:42→20:41)
[2020-05-27] MEDS: Enoxaparin 60 MG/0.6 ML Syringe SUBCUT SCH ×2 (08:43→20:40)
[2020-05-27] MEDS: Benzocaine/Cetylpyridinium/Menthol Lozenge MUCMEM PRN ×3 (10:20→23:25)
[2020-05-27] MEDS: Nystatin Susp 100,000 Unit/ML 5 ML Oral Syringe PO SCH (10:20)
[2020-05-27] MEDS: Fluticasone Propionate Nasal Spray 16 GM Bottle NASBOTH SCH (10:20)
[2020-05-27] MEDS: Docusate Sodium 100 MG Cap PO PRN ×2 (10:20→23:17)
[2020-05-27] MEDS: Pantoprazole 40 MG Tab.CR PO SCH (10:26)
[2020-05-27] MEDS: Sildenafil 20 MG Tab **PTOM PO SCH ×3 (10:26→20:41)
[2020-05-27] MEDS: IPRATROPIUM 0.03% SCH ×3 (10:28→20:49)
[2020-05-27] MEDS ORDERED: Levofloxacin/Dextrose 5%-Water 750 MG in Premix Bag 1 BAG IV SCH (15:00)
--- NOTE | 2020-05-27 15:31 | PCM.PN ---
- General Info Date of Service: 05/27/20 Functional Status: Reports: Tolerating Diet - Review of Systems General: Reports: Weakness HEENT: Reports: No Symptoms Pulmonary: Reports: Shortness of Breath Cardiovascular: Reports: Chest Pain Gastrointestinal: Reports: No Symptoms Genitourinary: Reports: No Symptoms Musculoskeletal: Reports: No Symptoms Skin: Reports: No Symptoms Neurological: Reports: No Symptoms Psychiatric: Reports: No Symptoms - Patient Data Vitals - Most Recent: Last Vital Signs Temp 36.8 C 05/27/20 11:11 Pulse 112 H 05/27/20 08:42 Resp 18 05/27/20 11:11 BP 126/70 05/27/20 11:11 Pulse Ox 92 L 05/27/20 11:11 Weight - Most Recent: 56.784 kg I&O - Last 24 Hours: Intake & Output 05/27/20 05/27/20 05/27/20 06:59 14:59 22:59 Output Total 585 310 Balance -585 -310 Lab Results Last 24 Hours: Laboratory Results - last 24 hr 05/27/20 05/27/20 05/27/20 Range/Units 07:12 07:12 07:12 WBC 3.08 L (3.98-10.04) K/mm3 RBC 4.15 (3.98-5.22) M/mm3 Hgb 11.1 L (11.2-15.7) gm/dl Hct 36.7 (34.1-44.9) % MCV 88.4 (79.4-94.8) fl MCH 26.7 (25.6-32.2) pg MCHC 30.2 L (32.2-35.5) g/dl RDW Std Deviation 60.5 H (36.4-46.3) fL Plt Count 157 L (182-369) K/mm3 MPV 10.0 (9.4-12.3) fl D-Dimer, Quantitative 17.49 H (0.19-0.50) mg/L Puncture Site ABG pH (7.35-7.45) ABG pCO2 (35.0-45.0) mmHg ABG pO2 (80.0-100.0) mmHg ABG HCO3 (22.0-26.0) meq/L ABG O2 Saturation (96.0-97.0) % ABG Base Excess (-2-2.0) Cullen Test A-a Gradient mmHg O2 Delivery Device Oxygen Flow Rate FiO2 (21.00-100.00) % Sodium 143 (136-145) mEq/L Potassium 4.6 (3.5-5.1) mEq/L Chloride 107 (98-107) mEq/L Carbon Dioxide 34 H (21-32) mEq/L Anion Gap 6.6 (5-15) BUN 18 (7-18) mg/dL Creatinine 0.8 (0.55-1.02) mg/dL Est Cr Clr Drug Dosing 42.88 mL/min Estimated GFR (MDRD) > 60 (>60) mL/min BUN/Creatinine Ratio 22.5 H (14-18) Glucose 99 (83-115) mg/dL Calcium 8.4 L (8.5-10.1) mg/dL Phosphorus 2.6 (2.6-4.7) mg/dL Magnesium 1.9 (1.8-2.4) mg/dl Total Bilirubin 0.4 (0.2-1.0) mg/dL AST 36 (15-37) U/L ALT 27 (14-59) U/L Alkaline Phosphatase 213 H (46-116) U/L C-Reactive Protein 10.2 H* (<1.0) mg/dL Total Protein 6.0 L (6.4-8.2) g/dl Albumin 2.1 L (3.4-5.0) g/dl Globulin 3.9 gm/dL Albumin/Globulin Ratio 0.5 L (1-2) 05/27/20 Range/Units 14:08 WBC (3.98-10.04) K/mm3 RBC (3.98-5.22) M/mm3 Hgb (11.2-15.7) gm/dl Hct (34.1-44.9) % MCV (79.4-94.8) fl MCH (25.6-32.2) pg MCHC (32.2-35.5) g/dl RDW Std Deviation (36.4-46.3) fL Plt Count (182-369) K/mm3 MPV (9.4-12.3) fl D-Dimer, Quantitative (0.19-0.50) mg/L Puncture Site Lt radial ABG pH 7.43 (7.35-7.45) ABG pCO2 50.8 H (35.0-45.0) mmHg ABG pO2 56.0 L (80.0-100.0) mmHg ABG HCO3 33.0 H (22.0-26.0) meq/L ABG O2 Saturation 87.0 L (96.0-97.0) % ABG Base Excess 7.8 H (-2-2.0) Cullen Test Positive A-a Gradient 308 mmHg O2 Delivery Device Hiflow nasal cannula Oxygen Flow Rate 55.0 FiO2 60.00 (21.00-100.00) % Sodium (136-145) mEq/L Potassium (3.5-5.1) mEq/L Chloride (98-107) mEq/L Carbon Dioxide (21-32) mEq/L Anion Gap (5-15) BUN (7-18) mg/dL Creatinine (0.55-1.02) mg/dL Est Cr Clr Drug Dosing mL/min Estimated GFR (MDRD) (>60) mL/min BUN/Creatinine Ratio (14-18) Glucose (83-115) mg/dL Calcium (8.5-10.1) mg/dL Phosphorus (2.6-4.7) mg/dL Magnesium (1.8-2.4) mg/dl Total Bilirubin (0.2-1.0) mg/dL AST (15-37) U/L ALT (14-59) U/L Alkaline Phosphatase (46-116) U/L C-Reactive Protein (<1.0) mg/dL Total Protein (6.4-8.2) g/dl Albumin (3.4-5.0) g/dl Globulin gm/dL Albumin/Globulin Ratio (1-2) Chin Results Last 24 Hours: Microbiology 05/20/20 17:56 Aerobic Blood Culture - Preliminary Blood - Venous NO GROWTH AFTER 6 DAYS Anaerobic Blood Culture - Preliminary NO GROWTH AFTER 6 DAYS 05/20/20 17:46 Aerobic Blood Culture - Preliminary Blood NO GROWTH AFTER 6 DAYS Anaerobic Blood Culture - Preliminary NO GROWTH AFTER 6 DAYS Med Orders - Current: Current Medications Acetaminophen (Tylenol) 650 mg PO Q4H PRN PRN Reason: Pain (Mild 1-3)/fever Last Admin: 05/26/20 20:09 Dose: 650 mg Documented by: Albuterol (Proventil Hfa) 0 gm INH Q2H PRN PRN Reason: Shortness of Breath Last Admin: 05/27/20 08:32 Dose: 2 puff Documented by: Aspirin (Halfprin) 81 mg PO DAILY [facility] Last Admin: 05/27/20 08:42 Dose: 81 mg Documented by: Benzocaine/Menthol (Cepacol Sore Throat) 1 lozenge MUCMEM Q2HR PRN PRN Reason: Dry mouth Last Admin: 05/27/20 10:20 Dose: 1 lozenge Documented by: Cholecalciferol (Vitamin D3) 50 mcg PO DAILY [facility] Last Admin: 05/27/20 08:41 Dose: 50 mcg Documented by: Diazepam (Valium) 1 - 2 mg PO Q4H PRN PRN Reason: Anxiety Last Admin: 05/26/20 20:08 Dose: 2 mg Documented by: Docusate Sodium (Colace) 100 mg PO BID PRN PRN Reason: Constipation Last Admin: 05/27/20 10:20 Dose: 100 mg Documented by: Enoxaparin Sodium (Lovenox) 50 mg SUBCUT BID [facility] Last Admin: 05/27/20 08:43 Dose: 50 mg Documented by: Fluticasone Propionate (Flonase) 0 gm NASBOTH DAILY [facility] Last Admin: 05/27/20 10:20 Dose: 1 spray Documented by: Glycopyrrolate (Seebri Neohaler) 15.6 mcg IH BID [facility] Last Admin: 05/27/20 08:32 Dose: 1 cap Documented by: Hydralazine HCl (Apresoline) 10 mg IVPUSH Q4H PRN PRN Reason: Hypertension Last Admin: 05/23/20 10:08 Dose: 10 mg Documented by: Vancomycin HCl 1 gm/ Sodium (Chloride) 250 mls @ 250 mls/hr IV ONETIME ONE Stop: 05/27/20 17:59 Levofloxacin/Dextrose 750 mg/ (Premix) 150 mls @ 100 mls/hr IV Q48H [facility] Levothyroxine Sodium (Levothyroxine) 25 mcg PO ACBREAKFAST [facility] Last Admin: 05/27/20 06:15 Dose: 25 mcg Documented by: Loperamide HCl (Imodium) 2 mg PO Q6H PRN PRN Reason: Diarrhea Last Admin: 05/21/20 10:23 Dose: 2 mg Documented by: Lorazepam (Ativan) 0.5 mg IVPUSH Q2H PRN PRN Reason: Anxiety Magnesium Oxide (Magnesium Oxide) 400 mg PO BID [facility] Last Admin: 05/27/20 08:42 Dose: 400 mg Documented by: Metoprolol Succinate (Toprol Xl) 50 mg PO DAILY [facility] Last Admin: 05/27/20 08:42 Dose: 50 mg Documented by: Metoprolol Succinate (Toprol Xl) 50 mg PO BEDTIME [facility] Last Admin: 05/26/20 20:12 Dose: 50 mg Documented by: Metoprolol Tartrate (Lopressor) 5 mg IVPUSH Q4HR PRN PRN Reason: Tachycardia Last Admin: 05/24/20 15:05 Dose: 5 mg Documented by: Ipratropium 0.03% (Nasal Aniwa Ptom) 2 spray .XX TID [facility] Last Admin: 05/27/20 10:28 Dose: Not Given Documented by: Ondansetron HCl (Zofran) 4 mg IV Q4H PRN PRN Reason: Nausea/Vomiting Last Admin: 05/23/20 08:17 Dose: 4 mg Documented by: Pantoprazole Sodium (Protonix) 40 mg PO DAILY [facility] Last Admin: 05/27/20 10:26 Dose: 40 mg Documented by: Potassium Chloride (Klor-Con 10) 10 meq PO DAILY [facility] Last Admin: 05/27/20 08:42 Dose: 10 meq Documented by: Sildenafil Citrate (Revatio) 20 mg PO TID [facility] Last Admin: 05/27/20 10:26 Dose: 20 mg Documented by: Sodium Chloride (Saline Flush) 10 ml FLUSH ASDIRECTED PRN PRN Reason: Keep Vein Open Trolamine Salicylate (Aspercreme 10%) 0 gm TOP Q6H PRN PRN Reason: Pain Trospium (Sanctura) 20 mg PO BID [facility] Last Admin: 05/27/20 08:42 Dose: 20 mg Documented by: Discontinued Medications Dexamethasone (Dexamethasone) 6 mg PO DAILY [facility] Stop: 05/23/20 09:01 Last Admin: 05/23/20 08:17 Dose: Not Given Documented by: Diazepam (Valium) 2 mg PO QID PRN PRN Reason: Anxiety Last Admin: 05/24/20 20:19 Dose: 2 mg Documented by: Enoxaparin Sodium (Lovenox) 40 mg SUBCUT DAILY [facility] Last Admin: 05/22/20 08:38 Dose: 40 mg Documented by: Enoxaparin Sodium (Lovenox) 40 mg SUBCUT BID [facility] Last Admin: 05/23/20 08:16 Dose: 40 mg Documented by: Fluconazole (Diflucan) 150 mg PO ONETIME ONE Stop: 05/20/20 22:16 Last Admin: 05/20/20 21:32 Dose: 150 mg Documented by: Furosemide (Lasix) 20 mg IVPUSH NOW ONE Stop: 05/22/20 10:16 Last Admin: 05/22/20 11:11 Dose: 20 mg Documented by: Furosemide (Lasix) 20 mg IVPUSH NOW ONE Stop: 05/24/20 15:31 Last Admin: 05/24/20 15:38 Dose: 20 mg Documented by: Remdesivir 200 mg/ Sodium (Chloride) 250 mls @ 250 mls/hr IV ONETIME ONE Stop: 05/20/20 18:59 Last Admin: 05/20/20 19:32 Dose: 250 mls/hr Documented by: Remdesivir 100 mg/ Sodium (Chloride) 100 mls @ 100 mls/hr IV Q24H [facility] Stop: 05/24/20 18:59 Last Admin: 05/24/20 17:09 Dose: 100 mls/hr Documented by: Sodium Chloride (Normal Saline) 45 mls @ 40 mls/hr IV ASDIRECTED [facility] Sodium Chloride (Normal Saline) 250 mls @ 100 mls/hr IV ASDIRECTED [facility] Stop: 05/21/20 23:00 Last Admin: 05/21/20 13:36 Dose: 100 mls/hr Documented by: Magnesium Sulfate 4 gm/ Premix 50 mls @ 12.5 mls/hr IV ONETIME ONE Stop: 05/22/20 13:12 Last Admin: 05/22/20 09:43 Dose: 12.5 mls/hr Documented by: Sodium Chloride (Normal Saline) 500 mls @ 250 mls/hr IV .BOLUS ONE Stop: 05/23/20 14:08 Last Admin: 05/23/20 12:27 Dose: 250 mls/hr Documented by: Ceftriaxone Sodium 2 gm/ (Sodium Chloride) 100 mls @ 200 mls/hr IV Q24H [facility] Stop: 05/27/20 18:29 Last Admin: 05/26/20 18:29 Dose: 200 mls/hr Documented by: Azithromycin 500 mg/ Sodium (Chloride) 250 mls @ 250 mls/hr IV Q24H [facility] Stop: 05/25/20 18:59 Last Admin: 05/24/20 10:49 Dose: Not Given Documented by: Azithromycin 500 mg/ Sodium (Chloride) 250 mls @ 250 mls/hr IV Q24H [facility] Stop: 05/25/20 21:59 Last Admin: 05/25/20 20:49 Dose: 250 mls/hr Documented by: Magnesium Sulfate 4 gm/ Premix 50 mls @ 12.5 mls/hr IV ONETIME ONE Stop: 05/24/20 13:43 Last Admin: 05/24/20 10:48 Dose: 12.5 mls/hr Documented by: Tocilizumab 400 mg/ Sodium (Chloride) 100 mls @ 100 mls/hr IV Q12H [facility] Stop: 05/25/20 22:59 Last Admin: 05/25/20 21:51 Dose: 100 mls/hr Documented by: Albumin Human (Flexbumin 25%) 12.5 gm in 50 mls @ 100 mls/hr IV ONETIME ONE Stop: 05/25/20 11:29 Last Admin: 05/25/20 10:54 Dose: 100 mls/hr Documented by: Levofloxacin/Dextrose 750 mg/ (Premix) 150 mls @ 100 mls/hr IV Q24H [facility] Iopamidol (Isovue-370 (76%)) 100 ml IVPUSH ONETIME ONE Stop: 05/20/20 20:56 Last Admin: 05/20/20 22:34 Dose: 100 ml Documented by: Levothyroxine Sodium (Synthroid) 50 mcg PO DAILY [facility] Last Admin: 05/23/20 08:16 Dose: Not Given Documented by: Metoprolol Tartrate (Lopressor) 5 mg IV ONETIME [facility] Stop: 05/23/20 10:30 Metoprolol Tartrate (Lopressor) 5 mg IVPUSH ONETIME ONE Stop: 05/23/20 11:36 Last Admin: 05/23/20 11:38 Dose: 5 mg Documented by: Nystatin (Nystatin Oral Syringe) 500,000 unit PO QID [facility] Stop: 05/27/20 23:00 Last Admin: 05/27/20 10:20 Dose: 500,000 unit Documented by: Ondansetron HCl (Zofran) Confirm Administered Dose 4 mg .ROUTE .STK-MED ONE Stop: 05/23/20 08:16 Last Admin: 05/23/20 09:47 Dose: Not Given Documented by: Potassium Chloride (Klor-Con M20) 40 meq PO ONETIME ONE Stop: 05/20/20 21:11 Last Admin: 05/20/20 20:45 Dose: 40 meq Documented by: Potassium Chloride (Klor-Con M20) 40 meq PO ONETIME ONE Stop: 05/22/20 09:14 Last Admin: 05/22/20 09:44 Dose: 40 meq Documented by: Sildenafil Citrate (Revatio) 20 mg PO TID [facility] Last Admin: 05/20/20 22:10 Dose: Not Given Documented by: Sodium Chloride (Saline Flush) 10 ml FLUSH ONETIME PRN PRN Reason: Keep Vein Open Trolamine Salicylate (Aspercreme 10%) 0 gm TOP Q1H PRN PRN Reason: Pain - Exam Quality Assessment: Supplemental Oxygen, DVT Prophylaxis General: Alert, Oriented, Cooperative HEENT: Pupils Equal, Pupils Reactive, EOMI Neck: Trachea Midline, No JVD Lungs: Normal Respiratory Effort, Decreased Breath Sounds, Rales GI/Abdominal Exam: Normal Bowel Sounds, Soft, Non-Tender (Female) Exam: Deferred Back Exam: Normal Inspection Extremities: Normal Inspection, Slow Capillary Refill Skin: Warm Neurological: No New Focal Deficit Psy/Mental Status: Alert Sepsis Event Note - Evaluation Sepsis Screening Result: Severe Sepsis Risk - Focused Exam Vital Signs: Vital Signs Temp Pulse Resp BP BP Pulse Ox Pulse Ox 05/27/20 11:11 36.8 C 18 126/70 92 L 05/27/20 08:42 112 H 155/88 H 05/27/20 08:32 95 05/27/20 08:00 37.1 C 18 155/88 H 90 L 05/27/20 04:48 94 L 05/27/20 04:00 36.8 C 20 131/85 90 L - Problem List & Annotations (1) Bronchiectasis SNOMED Code(s): 10465254 Code(s): J47.9 - BRONCHIECTASIS, UNCOMPLICATED Status: Acute Current Visit: Yes (2) CHF (congestive heart failure) SNOMED Code(s): 27250004 Code(s): I50.9 - HEART FAILURE, UNSPECIFIED Status: Acute Current Visit: Yes (3) Pneumonia due to COVID-19 virus SNOMED Code(s): 228034411201896116 Code(s): U07.1 - COVID-19; J12.89 - OTHER VIRAL PNEUMONIA Status: Acute Current Visit: Yes (4) Pulmonary fibrosis SNOMED Code(s): 36769316 Code(s): J84.10 - PULMONARY FIBROSIS, UNSPECIFIED Status: Acute Current Visit: Yes (5) Thrush, oral SNOMED Code(s): 44363969 Code(s): B37.0 - CANDIDAL STOMATITIS Status: Acute Current Visit: Yes (6) Vaginal thrush SNOMED Code(s): 37942955 Code(s): B37.3 - CANDIDIASIS OF VULVA AND VAGINA Status: Acute Current Visit: Yes (7) Abdominal pain SNOMED Code(s): 19142069 Code(s): R10.9 - UNSPECIFIED ABDOMINAL PAIN Status: Acute Current Visit: No Qualifiers: Abdominal location: right upper quadrant Qualified Code(s): R10.11 - Right upper quadrant pain (8) Aortic arch dissection SNOMED Code(s): 69242325868737 Code(s): I71.01 - DISSECTION OF THORACIC AORTA Status: Acute Current Visit: No - Problem List Review Problem List Initiated/Reviewed/Updated: Yes - My Orders Last 24 Hours: My Active Orders 05/26/20 18:34 Docusate Sodium [Colace] 100 mg PO BID PRN 05/27/20 Lunch Clear Liquid Diet [DIET] 05/27/20 15:08 Vancomycin 1 gm Sodium Chloride 0.9% [Normal Saline] 250 ml IV ONETIME 05/27/20 15:30 CXR [Chest 1V Frontal] [CR] Routine Levofloxacin/Dextrose 5%-Water [Levaquin in D5W 750 MG/150 ML] 750 mg Premix Bag 1 bag IV Q48H 05/27/20 Dinner Regular Diet [DIET] 05/28/20 07:00 DD [D-DIMER QUANTITATIVE] [COAG] Routine MAGNESIUM [CHEM] Routine - Plan Plan:: Assessment 05/20/2020 * 78-year-old female with known Covid and pulmonary fibrosis with worsening oxygenation and increasing D-dimer. * Recent hospitalization for sepsis on April 27, 2020. D-dimer at that time was 17. * Oral thrush and vaginal candidiasis * History of pulmonary hypertension, pulmonary fibrosis, bronchiectasis, hypertension, congestive heart failure, severe valvular disease involving both the aortic valve and mitral valve, abdominal aortic aneurysm with endovascular grafting Unfortunate patient is high risk for complications secondary to her multiple medical problems which include cardiac and respiratory disease. Patient is in her 80s, is on oxygen at baseline, heart failure and hypertension, has poor appetite, multiple medical problems. 05/21/2020 * Pneumonia due to COVID-19 * Pulmonary fibrosis and interstitial lung disease * Bronchiectasis * Oral and vaginal candidiasis * Pulmonary hypertension Patient has had an uneventful night and even some improvement in her oxygen saturations. She is in agreement to getting convalescent plasma. She was started on remdesivir yesterday. No antibiotics at this time. She was also started on nystatin and Diflucan for her candidiasis. CT of the chest performed yesterday was negative for pulmonary embolism. She did have an interval development of patchy areas of groundglass opacification compared to April 27. This is consistent with viral pneumonia. 05/22/2020 * Pneumonia due to COVID-19 * Pulmonary fibrosis and interstitial lung disease * Bronchiectasis * Oral and vaginal candidiasis * Pulmonary hypertension Patient continues on 2 to 3 L nasal cannula. She is generally without much change, but her CRP did go up to 11.8. D-dimer has not changed and is still 8.66. Fortunately, procalcitonin did come back low at 0.05. White count continues at 3.12. Blood pressure has been significantly elevated. 05/23/2020 * Pneumonia due to COVID-19 -deteriorated * Pulmonary fibrosis and interstitial lung disease * Bronchiectasis * Oral and vaginal candidiasis * Pulmonary hypertension * Depression Patient transferred to the ICU because of worsening respiratory status. She is currently on 6 L nasal cannula which is a significant increase. She was given a fluid challenge and she did have multiple episodes of tachycardia today requiring IV Lopressor. I discussed with her family and her about her CODE STATUS again. They are going to discuss among themselves about if she wants CPR. Currently she wants 3 attempts at CPR but does not want to be intubated. D-dimer increased difficulty today to 15 and C-reactive protein decreased to 5.9. Magnesium is 1.9, but phosphorus has decreased to 2.1. Albumin is 2.4 and TSH is low at 0.296. Procalcitonin is normal. 05/24/2020 * Pneumonia due to COVID-19 -deteriorated * Pulmonary fibrosis and interstitial lung disease * Bronchiectasis * Oral and vaginal candidiasisimproved * Pulmonary hypertension * Depression * Sinus tachycardia Patient has had significant worsening of respiratory status of the last 48 hours. She is currently on high flow nasal cannula and she has significant sinus tachycardia. She has received 2 doses of IV Lopressor for tachycardia. She had some improvement in her tachycardia when she was first put on high flow nasal cannula. Weight is essentially stable since admission. 05/25/2020 * Pneumonia due to COVID-19 -stable on high flow nasal cannula -completed remdesivir, dexamethasone, and convalescent plasma * Query HCAP * Pulmonary fibrosis and interstitial lung disease * Bronchiectasis * Oral and vaginal candidiasisimproved * Pulmonary hypertension * Hypertension * Hypothyroidism-levothyroxine decreased to 25 mcg daily after low TSH * Depression * Sinus tachycardia * Hypoalbuminemia CRP worsened and she still is on high flow nasal cannula she is clinically stable. She continues to have a very bad prognosis. Plan * Start Vancomycin, Levoquin empirically * Lopressor 5 mg IV as needed heart rate greater than 110 * CXR re: pulmonary infiltrate * Nystatin, stop today * Aspirin 81 mg daily * Levothyroxine 25 mcg daily * Actemra 400 mg now and repeat in 12 hours * Follow CBC, CMP, D-dimer, CRP, mag, Phos daily * HFNC, 55/60 * Lovenox 50 mg every 12 hours; negative CTA. * CODE STATUS: DO NOT INTUBATE but wants "attempt at resuscitation" * Length of stay greater than 96 hours secondary to worsening hypoxemia from Covid.
--- NOTE | 2020-05-27 15:42 | CR ---
PROCEDURE INFORMATION: Exam: XR Chest, 1 View Exam date and time: 05/27/2020 2:41 PM Age: 80 years old Clinical indication: Other: Hypoxia TECHNIQUE: Imaging protocol: XR of the chest Views: 1 view. COMPARISON: CR Chest 1V Frontal 05/23/2020 4:49 PM FINDINGS: Lungs: Patchy consolidation both lungs has not changed or prove substantially since prior examination. Pleural space: Unremarkable. No pleural effusion. No pneumothorax. Heart/Mediastinum: Stable cardiomegaly. Aortic stent unchanged. Bones/joints: Unremarkable. IMPRESSION: No significant change or improvement radiographic findings from previous study. Thank you for allowing us to participate in the care of your patient. Dictated and Authenticated by: Melvin Carlisle MD 05/27/2020 4:17 PM Central Time ([place] & [place]) [facility]
[2020-05-27] MEDS: Levofloxacin/Dextrose 5%-Water 750 MG in Premix Bag 1 BAG IV SCH (16:43)
[2020-05-27] MEDS ORDERED: Vancomycin 1 GM, Vancomycin 250 MG in Sodium Chloride 0.9% 250 ML IV ONE (17:00)
[2020-05-27] MEDS: Morphine 2 MG/ML SYRINGE IVPUSH PRN (20:42)
[2020-05-27] MEDS: Diazepam 2 MG Tab PO PRN (21:23)
[2020-05-27] MEDS: Metoprolol Tartrate 5 MG/5 ML SDV IVPUSH PRN (23:18)
[2020-05-28] MEDS: Morphine 2 MG/ML SYRINGE IVPUSH PRN ×3 (01:25→17:53)
[2020-05-28] MEDS: Levothyroxine 25 MCG Tab PO SCH (06:00)
[2020-05-28] MEDS ORDERED: Magnesium Sulfate/Water 2 GM/50 ML BAG IV ONE (08:00)
[2020-05-28] MEDS ORDERED: Magnesium Sulfate/Water 2 GM/50 ML Premix Bag IV ONE (08:00)
[2020-05-28] MEDS: Enoxaparin 60 MG/0.6 ML Syringe SUBCUT SCH ×2 (08:52→20:01)
[2020-05-28] MEDS: Benzocaine/Cetylpyridinium/Menthol Lozenge MUCMEM PRN ×3 (08:54→20:01)
[2020-05-28] MEDS: Diazepam 2 MG Tab PO PRN ×2 (08:55→20:02)
[2020-05-28] MEDS: Potassium Chloride 10 MEQ Tab.ER PO SCH (08:55)
[2020-05-28] MEDS: Pantoprazole 40 MG Tab.CR PO SCH (08:55)
[2020-05-28] MEDS: Magnesium Oxide 400 MG Tab PO SCH ×2 (08:55→20:02)
[2020-05-28] MEDS: Metoprolol Succinate 50 MG Tab.ER PO SCH (08:55)
[2020-05-28] MEDS: Aspirin 81 MG Tab.EC PO SCH (08:55)
[2020-05-28] MEDS: Cholecalciferol (Vitamin D3) 25 MCG Tab PO SCH (08:55)
[2020-05-28] MEDS: Trospium 20 MG Tab PO SCH ×2 (08:55→20:01)
[2020-05-28] MEDS: Albuterol 6.7 GM Inhaler INH PRN ×3 (09:09→21:10)
[2020-05-28] MEDS: Glycopyrrolate 15.6 MCG Cap.W.Dev Kit of 6 IH SCH ×2 (09:09→21:08)
[2020-05-28] MEDS ORDERED: Metoprolol Succinate 50 MG Tab.ER PO ONE (09:23)
[2020-05-28] MEDS: Sildenafil 20 MG Tab **PTOM PO SCH ×3 (10:08→20:04)
[2020-05-28] MEDS: Fluticasone Propionate Nasal Spray 16 GM Bottle NASBOTH SCH (10:09)
[2020-05-28] MEDS: Acetaminophen 325 MG Tab PO PRN (11:06)
[2020-05-28] MEDS: IPRATROPIUM 0.03% SCH ×3 (11:11→20:04)
[2020-05-28] MEDS: Docusate Sodium 100 MG Cap PO PRN (12:43)
[2020-05-28] MEDS ORDERED: Furosemide 40 MG/4 ML VIAL IVPUSH ONE (14:54)
[2020-05-28] MEDS ORDERED: Magnesium Hydroxide 400 MG/5 ML Susp 30 ML Cup PO ONE (15:30)
[2020-05-28] MEDS: Metoprolol Succinate 25 MG Tab.ER PO SCH (20:02)
[2020-05-29] MEDS: Diazepam 2 MG Tab PO PRN ×2 (00:12→08:55)
[2020-05-29] MEDS: Morphine 2 MG/ML SYRINGE IVPUSH PRN ×2 (02:15→11:50)
[2020-05-29] MEDS: Levothyroxine 25 MCG Tab PO SCH (06:40)
[2020-05-29] MEDS ORDERED: Furosemide 20 MG/2 ML VIAL IVPUSH SCH (08:00)
[2020-05-29] MEDS: Glycopyrrolate 15.6 MCG Cap.W.Dev Kit of 6 IH SCH (08:24)
[2020-05-29] MEDS: Albuterol 6.7 GM Inhaler INH PRN (08:24)
[2020-05-29] MEDS: Enoxaparin 60 MG/0.6 ML Syringe SUBCUT SCH (08:53)
[2020-05-29] MEDS: Trospium 20 MG Tab PO SCH (08:54)
[2020-05-29] MEDS: Metoprolol Succinate 25 MG Tab.ER PO SCH (08:54)
[2020-05-29] MEDS: Potassium Chloride 10 MEQ Tab.ER PO SCH (08:54)
[2020-05-29] MEDS: Aspirin 81 MG Tab.EC PO SCH (08:54)
[2020-05-29] MEDS: Magnesium Oxide 400 MG Tab PO SCH (08:54)
[2020-05-29] MEDS: Cholecalciferol (Vitamin D3) 25 MCG Tab PO SCH (08:54)
[2020-05-29] MEDS: IPRATROPIUM 0.03% SCH (09:17)
[2020-05-29] MEDS ORDERED: Magnesium Hydroxide 400 MG/5 ML Susp 30 ML Cup PO ONE (09:18)
[2020-05-29] MEDS: Pantoprazole 40 MG Tab.CR PO SCH (09:29)
[2020-05-29] MEDS: Docusate Sodium 100 MG Cap PO PRN (09:29)
[2020-05-29] MEDS: Fluticasone Propionate Nasal Spray 16 GM Bottle NASBOTH SCH (09:30)
[2020-05-29] MEDS: Sildenafil 20 MG Tab **PTOM PO SCH ×2 (09:30→17:23)
--- NOTE | 2020-05-29 11:50 | PCM.PN ---
- General Info Date of Service: 05/29/20 Subjective Update: Patient has been more short of breath. Functional Status: Reports: Urinating - Review of Systems General: Reports: Weakness, Fatigue HEENT: Reports: No Symptoms Pulmonary: Reports: Shortness of Breath Cardiovascular: Reports: No Symptoms Gastrointestinal: Reports: No Symptoms Genitourinary: Reports: No Symptoms Musculoskeletal: Reports: No Symptoms Skin: Reports: No Symptoms Neurological: Reports: No Symptoms Psychiatric: Reports: No Symptoms - Patient Data Vitals - Most Recent: Last Vital Signs Temp 36.2 C 05/29/20 08:20 Pulse 105 H 05/29/20 08:54 Resp 24 H 05/29/20 08:20 BP 135/103 H 05/29/20 08:54 Pulse Ox 94 L 05/29/20 09:00 Weight - Most Recent: 53.524 kg I&O - Last 24 Hours: Intake & Output 05/28/20 05/29/20 05/29/20 22:59 06:59 14:59 Intake Total 780 300 240 Output Total 1225 200 Balance -445 100 240 Lab Results Last 24 Hours: Laboratory Results - last 24 hr 05/28/20 05/29/20 05/29/20 Range/Units 05:10 04:47 04:47 WBC 4.62 (3.98-10.04) K/mm3 RBC 4.29 (3.98-5.22) M/mm3 Hgb 11.6 (11.2-15.7) gm/dl Hct 38.0 (34.1-44.9) % MCV 88.6 (79.4-94.8) fl MCH 27.0 (25.6-32.2) pg MCHC 30.5 L (32.2-35.5) g/dl RDW Std Deviation 60.2 H (36.4-46.3) fL Plt Count 161 L (182-369) K/mm3 MPV 10.2 (9.4-12.3) fl Neut % (Auto) 84.5 H (34.0-71.1) % Lymph % (Auto) 9.1 L (19.3-51.7) % Grainger % (Auto) 4.3 L (4.7-12.5) % Eos % (Auto) 1.3 (0.7-5.8) Baso % (Auto) 0.2 (0.1-1.2) % Neut # (Auto) 3.90 (1.56-6.13) K/mm3 Lymph # (Auto) 0.42 L (1.18-3.74) K/mm3 Grainger # (Auto) 0.20 L (0.24-0.36) K/mm3 Eos # (Auto) 0.06 (0.04-0.36) K/mm3 Baso # (Auto) 0.01 (0.01-0.08) K/mm3 Manual Slide Review Abnormal smear D-Dimer, Quantitative 10.95 H (0.19-0.50) mg/L Puncture Site ABG pH (7.35-7.45) ABG pCO2 (35.0-45.0) mmHg ABG pO2 (80.0-100.0) mmHg ABG HCO3 (22.0-26.0) meq/L ABG O2 Saturation (96.0-97.0) % ABG Base Excess (-2-2.0) A-a Gradient mmHg O2 Delivery Device Oxygen Flow Rate FiO2 (21.00-100.00) % Sodium 139 (136-145) mEq/L Potassium 5.1 (3.5-5.1) mEq/L Chloride 102 (98-107) mEq/L Carbon Dioxide 30 (21-32) mEq/L Anion Gap 12.1 (5-15) BUN 15 (7-18) mg/dL Creatinine 0.8 (0.55-1.02) mg/dL Est Cr Clr Drug Dosing 42.88 mL/min Estimated GFR (MDRD) > 60 (>60) mL/min BUN/Creatinine Ratio 18.8 H (14-18) Glucose 132 H (83-115) mg/dL Calcium 8.6 (8.5-10.1) mg/dL Magnesium (1.8-2.4) mg/dl C-Reactive Protein (<1.0) mg/dL NT-Pro-B Natriuret Pep (0-450) pg/mL 05/29/20 05/29/20 05/29/20 Range/Units 04:47 04:47 10:47 WBC (3.98-10.04) K/mm3 RBC (3.98-5.22) M/mm3 Hgb (11.2-15.7) gm/dl Hct (34.1-44.9) % MCV (79.4-94.8) fl MCH (25.6-32.2) pg MCHC (32.2-35.5) g/dl RDW Std Deviation (36.4-46.3) fL Plt Count (182-369) K/mm3 MPV (9.4-12.3) fl Neut % (Auto) (34.0-71.1) % Lymph % (Auto) (19.3-51.7) % Grainger % (Auto) (4.7-12.5) % Eos % (Auto) (0.7-5.8) Baso % (Auto) (0.1-1.2) % Neut # (Auto) (1.56-6.13) K/mm3 Lymph # (Auto) (1.18-3.74) K/mm3 Grainger # (Auto) (0.24-0.36) K/mm3 Eos # (Auto) (0.04-0.36) K/mm3 Baso # (Auto) (0.01-0.08) K/mm3 Manual Slide Review D-Dimer, Quantitative (0.19-0.50) mg/L Puncture Site Lt radial ABG pH 7.50 H (7.35-7.45) ABG pCO2 46.6 H (35.0-45.0) mmHg ABG pO2 59.0 L (80.0-100.0) mmHg ABG HCO3 35.9 H (22.0-26.0) meq/L ABG O2 Saturation 94.6 L (96.0-97.0) % ABG Base Excess 11.5 H (-2-2.0) A-a Gradient 275 mmHg O2 Delivery Device Hiflow nasal cannula Oxygen Flow Rate 55.0 FiO2 55.00 (21.00-100.00) % Sodium 143 (136-145) mEq/L Potassium 4.6 (3.5-5.1) mEq/L Chloride 104 (98-107) mEq/L Carbon Dioxide 37 H (21-32) mEq/L Anion Gap 6.6 (5-15) BUN 19 H (7-18) mg/dL Creatinine 0.8 (0.55-1.02) mg/dL Est Cr Clr Drug Dosing 42.88 mL/min Estimated GFR (MDRD) > 60 (>60) mL/min BUN/Creatinine Ratio 23.8 H (14-18) Glucose 123 H (83-115) mg/dL Calcium 8.4 L (8.5-10.1) mg/dL Magnesium 2.5 H (1.8-2.4) mg/dl C-Reactive Protein 3.2 H* (<1.0) mg/dL NT-Pro-B Natriuret Pep > 36390 H (0-450) pg/mL Med Orders - Current: Current Medications Acetaminophen (Tylenol) 650 mg PO Q4H PRN PRN Reason: Pain (Mild 1-3)/fever Last Admin: 05/28/20 11:06 Dose: 650 mg Documented by: Albuterol (Proventil Hfa) 0 gm INH Q2H PRN PRN Reason: Shortness of Breath Last Admin: 05/29/20 08:24 Dose: 2 puff Documented by: Aspirin (Halfprin) 81 mg PO DAILY [facility] Last Admin: 05/29/20 08:54 Dose: 81 mg Documented by: Benzocaine/Menthol (Cepacol Sore Throat) 1 lozenge MUCMEM Q2HR PRN PRN Reason: Dry mouth Last Admin: 05/28/20 20:01 Dose: 1 lozenge Documented by: Cholecalciferol (Vitamin D3) 50 mcg PO DAILY [facility] Last Admin: 05/29/20 08:54 Dose: 50 mcg Documented by: Diazepam (Valium) 1 - 2 mg PO Q4H PRN PRN Reason: Anxiety Last Admin: 05/29/20 08:55 Dose: 2 mg Documented by: Docusate Sodium (Colace) 100 mg PO BID PRN PRN Reason: Constipation Last Admin: 05/29/20 09:29 Dose: 100 mg Documented by: Enoxaparin Sodium (Lovenox) 50 mg SUBCUT BID [facility] Last Admin: 05/29/20 08:53 Dose: 50 mg Documented by: Fluticasone Propionate (Flonase) 0 gm NASBOTH DAILY [facility] Last Admin: 05/29/20 09:30 Dose: 1 spray Documented by: Furosemide (Lasix) 20 mg IVPUSH DAILY@0800 [facility] Stop: 05/30/20 08:01 Last Admin: 05/29/20 08:54 Dose: 20 mg Documented by: Glycopyrrolate (Seebri Neohaler) 15.6 mcg IH BID [facility] Stop: 05/30/20 01:00 Last Admin: 05/29/20 08:24 Dose: 1 cap Documented by: Hydralazine HCl (Apresoline) 10 mg IVPUSH Q4H PRN PRN Reason: Hypertension Last Admin: 05/23/20 10:08 Dose: 10 mg Documented by: Levofloxacin/Dextrose 750 mg/ (Premix) 150 mls @ 100 mls/hr IV Q48H [facility] Last Admin: 05/27/20 16:43 Dose: 100 mls/hr Documented by: Vancomycin HCl 1 gm/ Sodium (Chloride) 250 mls @ 250 mls/hr IV Q18H [facility] Last Admin: 05/29/20 04:40 Dose: 250 mls/hr Documented by: Levothyroxine Sodium (Levothyroxine) 25 mcg PO ACBREAKFAST [facility] Last Admin: 05/29/20 06:40 Dose: 25 mcg Documented by: Loperamide HCl (Imodium) 2 mg PO Q6H PRN PRN Reason: Diarrhea Last Admin: 05/21/20 10:23 Dose: 2 mg Documented by: Lorazepam (Ativan) 0.5 mg IVPUSH Q2H PRN PRN Reason: Anxiety Magnesium Oxide (Magnesium Oxide) 400 mg PO BID [facility] Last Admin: 05/29/20 08:54 Dose: 400 mg Documented by: Metoprolol Succinate (Toprol Xl) 75 mg PO BID [facility] Last Admin: 05/29/20 08:54 Dose: 75 mg Documented by: Metoprolol Tartrate (Lopressor) 5 mg IVPUSH Q4HR PRN PRN Reason: Tachycardia Last Admin: 05/27/20 23:18 Dose: 5 mg Documented by: Morphine Sulfate (Morphine) 1 mg IVPUSH Q2H PRN PRN Reason: Pain Last Admin: 05/29/20 02:15 Dose: 1 mg Documented by: Ipratropium 0.03% (Nasal Tiline Ptom) 2 spray .XX TID [facility] Last Admin: 05/29/20 09:17 Dose: Not Given Documented by: Ondansetron HCl (Zofran) 4 mg IV Q4H PRN PRN Reason: Nausea/Vomiting Last Admin: 05/23/20 08:17 Dose: 4 mg Documented by: Pantoprazole Sodium (Protonix) 40 mg PO DAILY [facility] Last Admin: 05/29/20 09:29 Dose: 40 mg Documented by: Potassium Chloride (Klor-Con 10) 10 meq PO DAILY [facility] Last Admin: 05/29/20 08:54 Dose: 10 meq Documented by: Sildenafil Citrate (Revatio) 20 mg PO TID [facility] Last Admin: 05/29/20 09:30 Dose: 20 mg Documented by: Sodium Chloride (Saline Flush) 10 ml FLUSH ASDIRECTED PRN PRN Reason: Keep Vein Open Tiotropium [place] (Spiriva Respimat) 0 gm INH DAILY [facility] Trolamine Salicylate (Aspercreme 10%) 0 gm TOP Q6H PRN PRN Reason: Pain Last Admin: 05/29/20 02:14 Dose: 85 gm Documented by: Trospium (Sanctura) 20 mg PO BID [facility] Last Admin: 05/29/20 08:54 Dose: 20 mg Documented by: Vancomycin HCl (Pharmacy To Dose - Vancomycin) 0 dose .XX ASDIRECTED PRN PRN Reason: RX TO DOSE VANCOMYCIN Discontinued Medications Dexamethasone (Dexamethasone) 6 mg PO DAILY [facility] Stop: 05/23/20 09:01 Last Admin: 05/23/20 08:17 Dose: Not Given Documented by: Diazepam (Valium) 2 mg PO QID PRN PRN Reason: Anxiety Last Admin: 05/24/20 20:19 Dose: 2 mg Documented by: Enoxaparin Sodium (Lovenox) 40 mg SUBCUT DAILY [facility] Last Admin: 05/22/20 08:38 Dose: 40 mg Documented by: Enoxaparin Sodium (Lovenox) 40 mg SUBCUT BID [facility] Last Admin: 05/23/20 08:16 Dose: 40 mg Documented by: Fluconazole (Diflucan) 150 mg PO ONETIME ONE Stop: 05/20/20 22:16 Last Admin: 05/20/20 21:32 Dose: 150 mg Documented by: Furosemide (Lasix) 20 mg IVPUSH NOW ONE Stop: 05/22/20 10:16 Last Admin: 05/22/20 11:11 Dose: 20 mg Documented by: Furosemide (Lasix) 20 mg IVPUSH NOW ONE Stop: 05/24/20 15:31 Last Admin: 05/24/20 15:38 Dose: 20 mg Documented by: Furosemide (Lasix) 20 mg IVPUSH NOW ONE Stop: 05/28/20 14:55 Last Admin: 05/28/20 15:20 Dose: 20 mg Documented by: Glycopyrrolate (Seebri Neohaler) 15.6 mcg IH BID [facility] Last Admin: 05/28/20 09:09 Dose: 1 cap Documented by: Remdesivir 200 mg/ Sodium (Chloride) 250 mls @ 250 mls/hr IV ONETIME ONE Stop: 05/20/20 18:59 Last Admin: 05/20/20 19:32 Dose: 250 mls/hr Documented by: Remdesivir 100 mg/ Sodium (Chloride) 100 mls @ 100 mls/hr IV Q24H [facility] Stop: 05/24/20 18:59 Last Admin: 05/24/20 17:09 Dose: 100 mls/hr Documented by: Sodium Chloride (Normal Saline) 45 mls @ 40 mls/hr IV ASDIRECTED [facility] Sodium Chloride (Normal Saline) 250 mls @ 100 mls/hr IV ASDIRECTED [facility] Stop: 05/21/20 23:00 Last Admin: 05/21/20 13:36 Dose: 100 mls/hr Documented by: Magnesium Sulfate 4 gm/ Premix 50 mls @ 12.5 mls/hr IV ONETIME ONE Stop: 05/22/20 13:12 Last Admin: 05/22/20 09:43 Dose: 12.5 mls/hr Documented by: Sodium Chloride (Normal Saline) 500 mls @ 250 mls/hr IV .BOLUS ONE Stop: 05/23/20 14:08 Last Admin: 05/23/20 12:27 Dose: 250 mls/hr Documented by: Ceftriaxone Sodium 2 gm/ (Sodium Chloride) 100 mls @ 200 mls/hr IV Q24H [facility] Stop: 05/27/20 18:29 Last Admin: 05/26/20 18:29 Dose: 200 mls/hr Documented by: Azithromycin 500 mg/ Sodium (Chloride) 250 mls @ 250 mls/hr IV Q24H [facility] Stop: 05/25/20 18:59 Last Admin: 05/24/20 10:49 Dose: Not Given Documented by: Azithromycin 500 mg/ Sodium (Chloride) 250 mls @ 250 mls/hr IV Q24H [facility] Stop: 05/25/20 21:59 Last Admin: 05/25/20 20:49 Dose: 250 mls/hr Documented by: Magnesium Sulfate 4 gm/ Premix 50 mls @ 12.5 mls/hr IV ONETIME ONE Stop: 05/24/20 13:43 Last Admin: 05/24/20 10:48 Dose: 12.5 mls/hr Documented by: Tocilizumab 400 mg/ Sodium (Chloride) 100 mls @ 100 mls/hr IV Q12H [facility] Stop: 05/25/20 22:59 Last Admin: 05/25/20 21:51 Dose: 100 mls/hr Documented by: Albumin Human (Flexbumin 25%) 12.5 gm in 50 mls @ 100 mls/hr IV ONETIME ONE Stop: 05/25/20 11:29 Last Admin: 05/25/20 10:54 Dose: 100 mls/hr Documented by: Vancomycin HCl 1 gm/Vancomycin HCl 250 mg/ Sodium Chloride 250 mls @ 166.667 mls/hr IV ONETIME ONE Stop: 05/27/20 18:29 Last Admin: 05/27/20 17:16 Dose: 166.667 mls/hr Documented by: Levofloxacin/Dextrose 750 mg/ (Premix) 150 mls @ 100 mls/hr IV Q24H [facility] Last Admin: 05/27/20 18:26 Dose: Not Given Documented by: Magnesium Sulfate (Magnesium Sulfate In Water Premix) 2 gm in 50 mls @ 25 mls/hr IV ONETIME ONE Stop: 05/28/20 09:59 Last Admin: 05/28/20 08:47 Dose: 25 mls/hr Documented by: Iopamidol (Isovue-370 (76%)) 100 ml IVPUSH ONETIME ONE Stop: 05/20/20 20:56 Last Admin: 05/20/20 22:34 Dose: 100 ml Documented by: Levothyroxine Sodium (Synthroid) 50 mcg PO DAILY [facility] Last Admin: 05/23/20 08:16 Dose: Not Given Documented by: Magnesium Hydroxide (Milk Of Magnesia) 30 ml PO ONETIME ONE Stop: 05/28/20 15:31 Last Admin: 05/28/20 17:16 Dose: 30 ml Documented by: Magnesium Hydroxide (Milk Of Magnesia) 30 ml PO ONETIME ONE Stop: 05/29/20 09:19 Last Admin: 05/29/20 09:29 Dose: 30 ml Documented by: Magnesium Sulfate (Magnesium Sulfate In Water Premix) 2 gm IV ONETIME ONE Stop: 05/28/20 08:01 Metoprolol Succinate (Toprol Xl) 50 mg PO DAILY [facility] Last Admin: 05/28/20 08:55 Dose: 50 mg Documented by: Metoprolol Succinate (Toprol Xl) 50 mg PO BEDTIME [facility] Last Admin: 05/27/20 20:40 Dose: 50 mg Documented by: Metoprolol Succinate (Toprol Xl) 25 mg PO ONETIME ONE Stop: 05/28/20 09:24 Last Admin: 05/28/20 11:06 Dose: 25 mg Documented by: Metoprolol Tartrate (Lopressor) 5 mg IV ONETIME [facility] Stop: 05/23/20 10:30 Metoprolol Tartrate (Lopressor) 5 mg IVPUSH ONETIME ONE Stop: 05/23/20 11:36 Last Admin: 05/23/20 11:38 Dose: 5 mg Documented by: Nystatin (Nystatin Oral Syringe) 500,000 unit PO QID [facility] Stop: 05/27/20 23:00 Last Admin: 05/27/20 10:20 Dose: 500,000 unit Documented by: Ondansetron HCl (Zofran) Confirm Administered Dose 4 mg .ROUTE .STK-MED ONE Stop: 05/23/20 08:16 Last Admin: 05/23/20 09:47 Dose: Not Given Documented by: Potassium Chloride (Klor-Con M20) 40 meq PO ONETIME ONE Stop: 05/20/20 21:11 Last Admin: 05/20/20 20:45 Dose: 40 meq Documented by: Potassium Chloride (Klor-Con M20) 40 meq PO ONETIME ONE Stop: 05/22/20 09:14 Last Admin: 05/22/20 09:44 Dose: 40 meq Documented by: Sildenafil Citrate (Revatio) 20 mg PO TID [facility] Last Admin: 05/20/20 22:10 Dose: Not Given Documented by: Sodium Chloride (Saline Flush) 10 ml FLUSH ONETIME PRN PRN Reason: Keep Vein Open Trolamine Salicylate (Aspercreme 10%) 0 gm TOP Q1H PRN PRN Reason: Pain - Exam Quality Assessment: Supplemental Oxygen, DVT Prophylaxis General: Alert, Oriented, Cooperative, No Acute Distress, Mild Distress HEENT: Pupils Equal, Pupils Reactive, EOMI Neck: Trachea Midline Lungs: Decreased Breath Sounds, Rales Cardiovascular: Regular Rhythm, Tachycardia GI/Abdominal Exam: Normal Bowel Sounds, Soft, Non-Tender, No Organomegaly, No Distention (Female) Exam: Deferred Back Exam: Normal Inspection Extremities: Normal Inspection, Slow Capillary Refill Skin: Warm Neurological: No New Focal Deficit Psy/Mental Status: Alert Sepsis Event Note - Evaluation Sepsis Screening Result: Sepsis Risk - Focused Exam Vital Signs: Vital Signs Temp Pulse Resp BP BP Pulse Ox Pulse Ox 05/29/20 09:00 94 L 05/29/20 08:54 105 H 135/103 H 05/29/20 08:46 135/103 H 95 05/29/20 08:45 93 L 05/29/20 08:25 93 L 05/29/20 08:20 36.2 C 24 H 135/103 H 95 05/29/20 08:00 93 L 05/29/20 07:00 93 L 05/29/20 06:00 92 L 05/29/20 05:00 91 L 05/29/20 04:47 139/91 H 92 L 05/29/20 04:46 91 L 05/29/20 04:00 36.2 C 20 139/91 H 92 L 05/29/20 03:00 91 L 05/29/20 02:00 83 L 05/29/20 01:00 92 L 05/29/20 00:01 92 L 05/29/20 00:00 36.3 C 20 130/89 130/89 89 L 05/28/20 23:59 88 L - Problem List & Annotations (1) Bronchiectasis SNOMED Code(s): 93740726 Code(s): J47.9 - BRONCHIECTASIS, UNCOMPLICATED Status: Acute Current Visit: Yes (2) CHF (congestive heart failure) SNOMED Code(s): 35617649 Code(s): I50.9 - HEART FAILURE, UNSPECIFIED Status: Acute Priority: High Current Visit: Yes (3) Pneumonia due to COVID-19 virus SNOMED Code(s): 488538016417634726 Code(s): U07.1 - COVID-19; J12.89 - OTHER VIRAL PNEUMONIA Status: Acute Current Visit: Yes (4) Pulmonary fibrosis SNOMED Code(s): 62051311 Code(s): J84.10 - PULMONARY FIBROSIS, UNSPECIFIED Status: Acute Current Visit: Yes (5) Thrush, oral SNOMED Code(s): 87281489 Code(s): B37.0 - CANDIDAL STOMATITIS Status: Acute Current Visit: Yes (6) Vaginal thrush SNOMED Code(s): 72165275 Code(s): B37.3 - CANDIDIASIS OF VULVA AND VAGINA Status: Acute Current Visit: Yes (7) Abdominal pain SNOMED Code(s): 70824869 Code(s): R10.9 - UNSPECIFIED ABDOMINAL PAIN Status: Acute Current Visit: No Qualifiers: Abdominal location: right upper quadrant Qualified Code(s): R10.11 - Right upper quadrant pain (8) Aortic arch dissection SNOMED Code(s): 12976553498402 Code(s): I71.01 - DISSECTION OF THORACIC AORTA Status: Acute Current Visit: No - Problem List Review Problem List Initiated/Reviewed/Updated: Yes - My Orders Last 24 Hours: My Active Orders 05/28/20 11:00 Vancomycin [Vancocin] 1 gm Sodium Chloride 0.9% [Normal Saline (AdvBag)] 250 ml IV Q18H 05/28/20 21:00 Metoprolol Succinate [Toprol XL] 75 mg PO BID 05/29/20 08:00 Furosemide [Lasix] 20 mg IVPUSH DAILY@0800 05/29/20 22:30 VANCOMYCIN TROUGH [CHEM] Timed 05/30/20 06:00 BASIC METABOLIC PANEL,BMP [CHEM] DAILY CBC WITH AUTO DIFF [HEME] DAILY CRP [C-REACTIVE PROTEIN] [CHEM] DAILY D Dimer [D-DIMER QUANTITATIVE] [COAG] DAILY MAGNESIUM [CHEM] DAILY 05/31/20 06:00 BASIC METABOLIC PANEL,BMP [CHEM] DAILY CBC WITH AUTO DIFF [HEME] DAILY CRP [C-REACTIVE PROTEIN] [CHEM] DAILY D Dimer [D-DIMER QUANTITATIVE] [COAG] DAILY MAGNESIUM [CHEM] DAILY 06/01/20 06:00 BASIC METABOLIC PANEL,BMP [CHEM] DAILY CBC WITH AUTO DIFF [HEME] DAILY CRP [C-REACTIVE PROTEIN] [CHEM] DAILY D Dimer [D-DIMER QUANTITATIVE] [COAG] DAILY MAGNESIUM [CHEM] DAILY - Plan Plan:: Assessment 05/20/2020 * 78-year-old female with known Covid and pulmonary fibrosis with worsening ox ygenation and increasing D-dimer. * Recent hospitalization for sepsis on April 27, 2020. D-dimer at that time was 17. * Oral thrush and vaginal candidiasis * History of pulmonary hypertension, pulmonary fibrosis, bronchiectasis, hypertension, congestive heart failure, severe valvular disease involving both the aortic valve and mitral valve, abdominal aortic aneurysm with endovascular grafting Unfortunate patient is high risk for complications secondary to her multiple medical problems which include cardiac and respiratory disease. Patient is in her 80s, is on oxygen at baseline, heart failure and hypertension, has poor appetite, multiple medical problems. 05/21/2020 * Pneumonia due to COVID-19 * Pulmonary fibrosis and interstitial lung disease * Bronchiectasis * Oral and vaginal candidiasis * Pulmonary hypertension Patient has had an uneventful night and even some improvement in her oxygen saturations. She is in agreement to getting convalescent plasma. She was started on remdesivir yesterday. No antibiotics at this time. She was also started on nystatin and Diflucan for her candidiasis. CT of the chest performed yesterday was negative for pulmonary embolism. She did have an interval development of patchy areas of groundglass opacification compared to April 27. This is consistent with viral pneumonia. 05/22/2020 * Pneumonia due to COVID-19 * Pulmonary fibrosis and interstitial lung disease * Bronchiectasis * Oral and vaginal candidiasis * Pulmonary hypertension Patient continues on 2 to 3 L nasal cannula. She is generally without much change, but her CRP did go up to 11.8. D-dimer has not changed and is still 8.66. Fortunately, procalcitonin did come back low at 0.05. White count continues at 3.12. Blood pressure has been significantly elevated. 05/23/2020 * Pneumonia due to COVID-19 -deteriorated * Pulmonary fibrosis and interstitial lung disease * Bronchiectasis * Oral and vaginal candidiasis * Pulmonary hypertension * Depression Patient transferred to the ICU because of worsening respiratory status. She is currently on 6 L nasal cannula which is a significant increase. She was given a fluid challenge and she did have multiple episodes of tachycardia today requiring IV Lopressor. I discussed with her family and her about her CODE STATUS again. They are going to discuss among themselves about if she wants CPR. Currently she wants 3 attempts at CPR but does not want to be intubated. D-dimer increased difficulty today to 15 and C-reactive protein decreased to 5.9. Magnesium is 1.9, but phosphorus has decreased to 2.1. Albumin is 2.4 and TSH is low at 0.296. Procalcitonin is normal. 05/24/2020 * Pneumonia due to COVID-19 -deteriorated * Pulmonary fibrosis and interstitial lung disease * Bronchiectasis * Oral and vaginal candidiasisimproved * Pulmonary hypertension * Depression * Sinus tachycardia Patient has had significant worsening of respiratory status of the last 48 hours. She is currently on high flow nasal cannula and she has significant sinus tachycardia. She has received 2 doses of IV Lopressor for tachycardia. She had some improvement in her tachycardia when she was first put on high flow nasal cannula. Weight is essentially stable since admission. 05/25/2020 * Pneumonia due to COVID-19 -stable on high flow nasal cannula -completed remdesivir, dexamethasone, and convalescent plasma * Query HCAP * Pulmonary fibrosis and interstitial lung disease * Bronchiectasis * Oral and vaginal candidiasisimproved * Pulmonary hypertension * Hypertension * Hypothyroidism-levothyroxine decreased to 25 mcg daily after low TSH * Depression * Sinus tachycardia * Hypoalbuminemia 05/26/2020 o Pneumonia due to COVID-19 -stable on high flow nasal cannula - completed remdesivir, dexamethasone, and convalescent plasma * Query HCAP * Pulmonary fibrosis and interstitial lung disease * Bronchiectasis * Oral and vaginal candidiasisimproved * Pulmonary hypertension * Hypertension * Hypothyroidism-levothyroxine decreased to 25 mcg daily after low TSH * Depression * Sinus tachycardia * Hypoalbuminemia 05/27/20 o Pneumonia due to COVID-19 -stable on high flow nasal cannula - completed remdesivir, dexamethasone, and convalescent plasma * Query HCAP * Pulmonary fibrosis and interstitial lung disease * Bronchiectasis * Oral and vaginal candidiasisimproved-Nystatin stopped * Pulmonary hypertension-Viagra * Hypertension, controlled * Hypothyroidism-levothyroxine decreased to 25 mcg daily after low TSH * Depression * Sinus tachycardia, BB scheduled and prn * Hypoalbuminemia 05/28/20 * Pneumonia due to COVID-19 -stable on high flow nasal cannula -completed remdesivir, dexamethasone, and convalescent plasma * Query HCAP * Pulmonary fibrosis and interstitial lung disease * Bronchiectasis * Oral and vaginal candidiasisimproved-Nystatin stopped * Pulmonary hypertension-Viagra * Hypertension, controlled * Hypothyroidism-levothyroxine decreased to 25 mcg daily after low TSH * Depression * Sinus tachycardia, BB scheduled and prn * Hypoalbuminema 05/29/20 -Acute on chronic heart failure, BNP>35, 000 -Hypoxemia, restless-fighting BiPAP -Scheduled Lasix, gtt to be started -Rapid response, ACLS re: bradycardia/PEA->return to SR/ST; additional ACLS re: PEA->return to ST Discussed with youngest son, 2 episodes of cardiopulmonary arrest; decision to not continue resuscitation made. Therefore no additional ACLS protocol; patient was pronounced at 1555 hour. Plan: The plan continued until the Rapid response and subsequent code re: PEA. * Vancomycin, Levoquin empirically * Lopressor 5 mg IV as needed heart rate greater than 110 * CXR re: pulmonary infiltrate * Nystatin, stop today * Lasix 40 mg IV every 12 hours * BiPAP 10/; titarte as tolerated. * Aspirin 81 mg daily * Levothyroxine 25 mcg daily * Actemra 400 mg now and repeat in 12 hours * Follow CBC, CMP, D-dimer, CRP, mag, Phos daily * HFNC, 55/60 * Lovenox 50 mg every 12 hours; negative CTA. * CODE STATUS: DO NOT INTUBATE but wants "attempt at resuscitation" * Length of stay greater than 96 hours secondary to worsening hypoxemia from Covid.
[2020-05-29] MEDS: Metoprolol Tartrate 5 MG/5 ML SDV IVPUSH PRN (12:27)
[2020-05-29] MEDS: LORazepam 2 MG/ML SDV IVPUSH PRN ×2 (12:44→14:57)
[2020-05-29] MEDS: Benzocaine/Cetylpyridinium/Menthol Lozenge MUCMEM PRN (12:47)
[2020-05-29] MEDS ORDERED: Furosemide 20 MG/2 ML VIAL IVPUSH ONE (13:34)
[2020-05-29] MEDS ORDERED: Furosemide 40 MG/4 ML VIAL IVPUSH ONE (14:55)
[2020-05-29] MEDS: Levofloxacin/Dextrose 5%-Water 750 MG in Premix Bag 1 BAG IV SCH (14:59)
[2020-05-29] MEDS ORDERED: Haloperidol Lactate 5 MG/ML SDV IVPUSH ONE (15:22)
[2020-05-29] MEDS ORDERED: Atropine 0.1 MG/ML 10 ML Syringe IVPUSH ONE (15:25)
[2020-05-29] MEDS ORDERED: Haloperidol Lactate 5 MG/ML SDV ONE (15:25)
[2020-05-29] MEDS ORDERED: EPINEPHrine 1 MG/ML 30 ML MDV IVPUSH ONE ×2 (15:28→15:45)
--- NOTE | 2020-05-29 17:01 | PCM.DCSUM1 ---
Discharge Summary - Hospital Course Free Text/Narrative:: 80 year old female with pulmonary disease developed Covid-19 PNA and later HCAP. She additionally had acute decompensated HF. The patient developed respiratory failure and became restless. BiPAP was poorly tolerated. She became bradycardic and later developed PEA. ACLS was successfully employed for bradycardia and PEA. However the patient specifically stated that she only wanted one attempt at resuscitation. Two episodes occurred successfully, the family was called. The patient's condition was discussed with her youngest son. Her wanted to honor his mother's wishes thus when the bradycardia returned, no additional support was provided. She at 1555 hour. Diagnosis: Stroke: No - Discharge Data Discharge Date: 05/29/20 Discharge Disposition: 20 Preliminary Cause of *Q: Respiratory Failure Event(s) Leading to Patient's *Q: Covid-19 PNA with HCAP in the setting of acute decompensated heart failure. Developed respiratory failure and subsequently bradyarrhythmia and finally PEA. Condition: - Referral to Home Health Primary Care Physician: PCP Not In Area - Discharge Diagnosis/Problem(s) (1) Bronchiectasis SNOMED Code(s): 79036912 ICD Code: J47.9 - BRONCHIECTASIS, UNCOMPLICATED Status: Acute Current Visit: Yes (2) CHF (congestive heart failure) SNOMED Code(s): 64540452 ICD Code: I50.9 - HEART FAILURE, UNSPECIFIED Status: Acute Priority: High Current Visit: Yes Qualifiers: Heart failure chronicity: unspecified (3) Pneumonia due to COVID-19 virus SNOMED Code(s): 721589271640111783 ICD Code: U07.1 - COVID-19; J12.89 - OTHER VIRAL PNEUMONIA Status: Acute Current Visit: Yes (4) Pulmonary fibrosis SNOMED Code(s): 29985298 ICD Code: J84.10 - PULMONARY FIBROSIS, UNSPECIFIED Status: Acute Current Visit: Yes (5) Thrush, oral SNOMED Code(s): 05627293 ICD Code: B37.0 - CANDIDAL STOMATITIS Status: Acute Current Visit: Yes (6) Vaginal thrush SNOMED Code(s): 93764109 ICD Code: B37.3 - CANDIDIASIS OF VULVA AND VAGINA Status: Acute Current Visit: Yes (7) Abdominal pain SNOMED Code(s): 66998345 ICD Code: R10.9 - UNSPECIFIED ABDOMINAL PAIN Status: Acute Current Visit: No Qualifiers: Abdominal location: right upper quadrant Qualified Code(s): R10.11 - Right upper quadrant pain (8) Aortic arch dissection SNOMED Code(s): 85897851794500 ICD Code: I71.01 - DISSECTION OF THORACIC AORTA Status: Acute Current Visit: No - Patient Summary/Data Consults: Consultations 05/20/20 17:03 Consult to Operations Inspector [CONS] Routine PT Evaluation and Treatment [CONS] Routine - Discharge Plan Home Medications: Home Meds Albuterol [Ventolin HFA] 2 puff INH Q4H PRN 11/21/17 [History] Cholecalciferol (Vitamin D3) [Vitamin D] 2,000 units PO DAILY 11/21/17 [History] Sildenafil Citrate [Sildenafil] 20 mg PO TID 11/21/17 [History] Tolterodine [Detrol LA 24 Hr] 4 mg PO DAILY 11/21/17 [History] Fluticasone Propionate [Flonase] 1 spray NASBOTH DAILY 05/20/20 [History] Furosemide [Lasix] 20 mg PO DAILY PRN 05/20/20 [History] Pantoprazole Sodium [Protonix] 40 mg PO DAILY 05/20/20 [History] RX: Acetaminophen 325 mg PO Q4H PRN 05/20/20 [History] RX: Ipratropium [Atrovent 0.03% Nasal [place]] 2 spray NASBOTH TID 05/20/20 [History] RX: Ipratropium [Atrovent] 1 vial NEB Q4H PRN 05/20/20 [History] RX: Levothyroxine [Synthroid] 50 mcg PO DAILY 05/20/20 [History] RX: Lidocaine 5% [Lidoderm 5%] 1 patch TOP DAILY PRN 05/20/20 [History] RX: Metoprolol Succinate [Toprol Xl] 50 mg PO DAILY 05/20/20 [History] RX: Potassium Chloride [Klor-Con 10] 10 meq PO DAILY 05/20/20 [History] RX: dexAMETHasone [Dexamethasone] 6 mg PO DAILY 05/20/20 [History] - Discharge Summary/Plan Comment DC Time >30 min.: No Discharge Summary/Plan Comment: See progress note, 05/29/2020 - General Info Date of Service: 05/20/20 - Patient Data Vitals - Most Recent: Last Vital Signs Temp 36.2 C 05/29/20 12:00 Pulse 120 H 05/29/20 12:27 Resp 27 H 05/29/20 12:00 BP 113/68 05/29/20 13:18 Pulse Ox 86 L 05/29/20 14:00 Weight - Most Recent: 53.524 kg I&O - Last 24 hours: Intake & Output 05/29/20 05/29/20 05/29/20 06:59 14:59 22:59 Intake Total 300 480 Output Total 200 1000 Balance 100 -520 Lab Results - Last 24 hrs: Laboratory Results - last 24 hr 05/29/20 05/29/20 05/29/20 Range/Units 04:47 04:47 04:47 WBC 4.62 (3.98-10.04) K/mm3 RBC 4.29 (3.98-5.22) M/mm3 Hgb 11.6 (11.2-15.7) gm/dl Hct 38.0 (34.1-44.9) % MCV 88.6 (79.4-94.8) fl MCH 27.0 (25.6-32.2) pg MCHC 30.5 L (32.2-35.5) g/dl RDW Std Deviation 60.2 H (36.4-46.3) fL Plt Count 161 L (182-369) K/mm3 MPV 10.2 (9.4-12.3) fl Neut % (Auto) 84.5 H (34.0-71.1) % Lymph % (Auto) 9.1 L (19.3-51.7) % Mathews % (Auto) 4.3 L (4.7-12.5) % Eos % (Auto) 1.3 (0.7-5.8) Baso % (Auto) 0.2 (0.1-1.2) % Neut # (Auto) 3.90 (1.56-6.13) K/mm3 Lymph # (Auto) 0.42 L (1.18-3.74) K/mm3 Mathews # (Auto) 0.20 L (0.24-0.36) K/mm3 Eos # (Auto) 0.06 (0.04-0.36) K/mm3 Baso # (Auto) 0.01 (0.01-0.08) K/mm3 Manual Slide Review Abnormal smear D-Dimer, Quantitative 10.95 H (0.19-0.50) mg/L Puncture Site ABG pH (7.35-7.45) ABG pCO2 (35.0-45.0) mmHg ABG pO2 (80.0-100.0) mmHg ABG HCO3 (22.0-26.0) meq/L ABG O2 Saturation (96.0-97.0) % ABG Base Excess (-2-2.0) A-a Gradient mmHg O2 Delivery Device Oxygen Flow Rate FiO2 (21.00-100.00) % Sodium 143 (136-145) mEq/L Potassium 4.6 (3.5-5.1) mEq/L Chloride 104 (98-107) mEq/L Carbon Dioxide 37 H (21-32) mEq/L Anion Gap 6.6 (5-15) BUN 19 H (7-18) mg/dL Creatinine 0.8 (0.55-1.02) mg/dL Est Cr Clr Drug Dosing 42.88 mL/min Estimated GFR (MDRD) > 60 (>60) mL/min BUN/Creatinine Ratio 23.8 H (14-18) Glucose 123 H (83-115) mg/dL Calcium 8.4 L (8.5-10.1) mg/dL Magnesium 2.5 H (1.8-2.4) mg/dl C-Reactive Protein 3.2 H* (<1.0) mg/dL NT-Pro-B Natriuret Pep (0-450) pg/mL 05/29/20 05/29/20 Range/Units 04:47 10:47 WBC (3.98-10.04) K/mm3 RBC (3.98-5.22) M/mm3 Hgb (11.2-15.7) gm/dl Hct (34.1-44.9) % MCV (79.4-94.8) fl MCH (25.6-32.2) pg MCHC (32.2-35.5) g/dl RDW Std Deviation (36.4-46.3) fL Plt Count (182-369) K/mm3 MPV (9.4-12.3) fl Neut % (Auto) (34.0-71.1) % Lymph % (Auto) (19.3-51.7) % Mathews % (Auto) (4.7-12.5) % Eos % (Auto) (0.7-5.8) Baso % (Auto) (0.1-1.2) % Neut # (Auto) (1.56-6.13) K/mm3 Lymph # (Auto) (1.18-3.74) K/mm3 Mathews # (Auto) (0.24-0.36) K/mm3 Eos # (Auto) (0.04-0.36) K/mm3 Baso # (Auto) (0.01-0.08) K/mm3 Manual Slide Review D-Dimer, Quantitative (0.19-0.50) mg/L Puncture Site Lt radial ABG pH 7.50 H (7.35-7.45) ABG pCO2 46.6 H (35.0-45.0) mmHg ABG pO2 59.0 L (80.0-100.0) mmHg ABG HCO3 35.9 H (22.0-26.0) meq/L ABG O2 Saturation 94.6 L (96.0-97.0) % ABG Base Excess 11.5 H (-2-2.0) A-a Gradient 275 mmHg O2 Delivery Device [place] nasal cannula Oxygen Flow Rate 55.0 FiO2 55.00 (21.00-100.00) % Sodium (136-145) mEq/L Potassium (3.5-5.1) mEq/L Chloride (98-107) mEq/L Carbon Dioxide (21-32) mEq/L Anion Gap (5-15) BUN (7-18) mg/dL Creatinine (0.55-1.02) mg/dL Est Cr Clr Drug Dosing mL/min Estimated GFR (MDRD) (>60) mL/min BUN/Creatinine Ratio (14-18) Glucose (83-115) mg/dL Calcium (8.5-10.1) mg/dL Magnesium (1.8-2.4) mg/dl C-Reactive Protein (<1.0) mg/dL NT-Pro-B Natriuret Pep > 59813 H (0-450) pg/mL Med Orders - Current: Current Medications Acetaminophen (Tylenol) 650 mg PO Q4H PRN PRN Reason: Pain (Mild 1-3)/fever Last Admin: 05/28/20 11:06 Dose: 650 mg Documented by: Albuterol (Proventil Hfa) 0 gm INH Q2H PRN PRN Reason: Shortness of Breath Last Admin: 05/29/20 08:24 Dose: 2 puff Documented by: Aspirin (Halfprin) 81 mg PO DAILY [facility] Last Admin: 05/29/20 08:54 Dose: 81 mg Documented by: Benzocaine/Menthol (Cepacol Sore Throat) 1 lozenge MUCMEM Q2HR PRN PRN Reason: Dry mouth Last Admin: 05/29/20 12:47 Dose: 1 lozenge Documented by: Cholecalciferol (Vitamin D3) 50 mcg PO DAILY [facility] Last Admin: 05/29/20 08:54 Dose: 50 mcg Documented by: Diazepam (Valium) 1 - 2 mg PO Q4H PRN PRN Reason: Anxiety Last Admin: 05/29/20 08:55 Dose: 2 mg Documented by: Docusate Sodium (Colace) 100 mg PO BID PRN PRN Reason: Constipation Last Admin: 05/29/20 09:29 Dose: 100 mg Documented by: Enoxaparin Sodium (Lovenox) 50 mg SUBCUT BID [facility] Last Admin: 05/29/20 08:53 Dose: 50 mg Documented by: Fluticasone Propionate (Flonase) 0 gm NASBOTH DAILY [facility] Last Admin: 05/29/20 09:30 Dose: 1 spray Documented by: Furosemide (Lasix) 20 mg IVPUSH DAILY@0800 [facility] Stop: 05/30/20 08:01 Last Admin: 05/29/20 08:54 Dose: 20 mg Documented by: Furosemide (Lasix) 40 mg IVPUSH DAILY [facility] Glycopyrrolate (Seebri Neohaler) 15.6 mcg IH BID [facility] Stop: 05/30/20 01:00 Last Admin: 05/29/20 08:24 Dose: 1 cap Documented by: Hydralazine HCl (Apresoline) 10 mg IVPUSH Q4H PRN PRN Reason: Hypertension Last Admin: 05/23/20 10:08 Dose: 10 mg Documented by: Levofloxacin/Dextrose 750 mg/ (Premix) 150 mls @ 100 mls/hr IV Q48H [facility] Last Admin: 05/29/20 14:59 Dose: 100 mls/hr Documented by: Vancomycin HCl 1 gm/ Sodium (Chloride) 250 mls @ 250 mls/hr IV Q18H [facility] Last Admin: 05/29/20 04:40 Dose: 250 mls/hr Documented by: Levothyroxine Sodium (Levothyroxine) 25 mcg PO ACBREAKFAST [facility] Last Admin: 05/29/20 06:40 Dose: 25 mcg Documented by: Loperamide HCl (Imodium) 2 mg PO Q6H PRN PRN Reason: Diarrhea Last Admin: 05/21/20 10:23 Dose: 2 mg Documented by: Lorazepam (Ativan) 0.5 mg IVPUSH Q2H PRN PRN Reason: Anxiety Last Admin: 05/29/20 14:57 Dose: 0.5 mg Documented by: Magnesium Oxide (Magnesium Oxide) 400 mg PO BID [facility] Last Admin: 05/29/20 08:54 Dose: 400 mg Documented by: Metoprolol Succinate (Toprol Xl) 75 mg PO BID [facility] Last Admin: 05/29/20 08:54 Dose: 75 mg Documented by: Metoprolol Tartrate (Lopressor) 5 mg IVPUSH Q4HR PRN PRN Reason: Tachycardia Last Admin: 05/29/20 12:27 Dose: 5 mg Documented by: Morphine Sulfate (Morphine) 1 mg IVPUSH Q2H PRN PRN Reason: Pain Last Admin: 05/29/20 11:50 Dose: 1 mg Documented by: Ipratropium 0.03% (Nasal [place]) 2 spray .XX TID [facility] Last Admin: 05/29/20 09:17 Dose: Not Given Documented by: Ondansetron HCl (Zofran) 4 mg IV Q4H PRN PRN Reason: Nausea/Vomiting Last Admin: 05/23/20 08:17 Dose: 4 mg Documented by: Pantoprazole Sodium (Protonix) 40 mg PO DAILY [facility] Last Admin: 05/29/20 09:29 Dose: 40 mg Documented by: Potassium Chloride (Klor-Con 10) 10 meq PO DAILY [facility] Last Admin: 05/29/20 08:54 Dose: 10 meq Documented by: Sildenafil Citrate (Revatio) 20 mg PO TID [facility] Last Admin: 05/29/20 09:30 Dose: 20 mg Documented by: Sodium Chloride (Saline Flush) 10 ml FLUSH ASDIRECTED PRN PRN Reason: Keep Vein Open Tiotropium [place] (Spiriva Respimat) 0 gm INH DAILY [facility] Trolamine Salicylate (Aspercreme 10%) 0 gm TOP Q6H PRN PRN Reason: Pain Last Admin: 05/29/20 02:14 Dose: 85 gm Documented by: Trospium (Sanctura) 20 mg PO BID [facility] Last Admin: 05/29/20 08:54 Dose: 20 mg Documented by: Vancomycin HCl (Pharmacy To Dose - Vancomycin) 0 dose .XX ASDIRECTED PRN PRN Reason: RX TO DOSE VANCOMYCIN Discontinued Medications Dexamethasone (Dexamethasone) 6 mg PO DAILY [facility] Stop: 05/23/20 09:01 Last Admin: 05/23/20 08:17 Dose: Not Given Documented by: Diazepam (Valium) 2 mg PO QID PRN PRN Reason: Anxiety Last Admin: 05/24/20 20:19 Dose: 2 mg Documented by: Enoxaparin Sodium (Lovenox) 40 mg SUBCUT DAILY [facility] Last Admin: 05/22/20 08:38 Dose: 40 mg Documented by: Enoxaparin Sodium (Lovenox) 40 mg SUBCUT BID [facility] Last Admin: 05/23/20 08:16 Dose: 40 mg Documented by: Fluconazole (Diflucan) 150 mg PO ONETIME ONE Stop: 05/20/20 22:16 Last Admin: 05/20/20 21:32 Dose: 150 mg Documented by: Furosemide (Lasix) 20 mg IVPUSH NOW ONE Stop: 05/22/20 10:16 Last Admin: 05/22/20 11:11 Dose: 20 mg Documented by: Furosemide (Lasix) 20 mg IVPUSH NOW ONE Stop: 05/24/20 15:31 Last Admin: 05/24/20 15:38 Dose: 20 mg Documented by: Furosemide (Lasix) 20 mg IVPUSH NOW ONE Stop: 05/28/20 14:55 Last Admin: 05/28/20 15:20 Dose: 20 mg Documented by: Furosemide (Lasix) 20 mg IVPUSH NOW ONE Stop: 05/29/20 13:35 Last Admin: 05/29/20 14:01 Dose: 20 mg Documented by: Furosemide (Lasix) 40 mg IVPUSH NOW ONE Stop: 05/29/20 14:56 Glycopyrrolate (Seebri Neohaler) 15.6 mcg IH BID [facility] Last Admin: 05/28/20 09:09 Dose: 1 cap Documented by: Haloperidol Lactate (Haldol) 1 mg IVPUSH ONETIME ONE Stop: 05/29/20 15:23 Haloperidol Lactate (Haldol) Confirm Administered Dose 5 mg .ROUTE .STK-MED ONE Stop: 05/29/20 15:26 Remdesivir 200 mg/ Sodium (Chloride) 250 mls @ 250 mls/hr IV ONETIME ONE Stop: 05/20/20 18:59 Last Admin: 05/20/20 19:32 Dose: 250 mls/hr Documented by: Remdesivir 100 mg/ Sodium (Chloride) 100 mls @ 100 mls/hr IV Q24H [facility] Stop: 05/24/20 18:59 Last Admin: 05/24/20 17:09 Dose: 100 mls/hr Documented by: Sodium Chloride (Normal Saline) 45 mls @ 40 mls/hr IV ASDIRECTED [facility] Sodium Chloride (Normal Saline) 250 mls @ 100 mls/hr IV ASDIRECTED [facility] Stop: 05/21/20 23:00 Last Admin: 05/21/20 13:36 Dose: 100 mls/hr Documented by: Magnesium Sulfate 4 gm/ Premix 50 mls @ 12.5 mls/hr IV ONETIME ONE Stop: 05/22/20 13:12 Last Admin: 05/22/20 09:43 Dose: 12.5 mls/hr Documented by: Sodium Chloride (Normal Saline) 500 mls @ 250 mls/hr IV .BOLUS ONE Stop: 05/23/20 14:08 Last Admin: 05/23/20 12:27 Dose: 250 mls/hr Documented by: Ceftriaxone Sodium 2 gm/ (Sodium Chloride) 100 mls @ 200 mls/hr IV Q24H [facility] Stop: 05/27/20 18:29 Last Admin: 05/26/20 18:29 Dose: 200 mls/hr Documented by: Azithromycin 500 mg/ Sodium (Chloride) 250 mls @ 250 mls/hr IV Q24H [facility] Stop: 05/25/20 18:59 Last Admin: 05/24/20 10:49 Dose: Not Given Documented by: Azithromycin 500 mg/ Sodium (Chloride) 250 mls @ 250 mls/hr IV Q24H [facility] Stop: 05/25/20 21:59 Last Admin: 05/25/20 20:49 Dose: 250 mls/hr Documented by: Magnesium Sulfate 4 gm/ Premix 50 mls @ 12.5 mls/hr IV ONETIME ONE Stop: 05/24/20 13:43 Last Admin: 05/24/20 10:48 Dose: 12.5 mls/hr Documented by: Tocilizumab 400 mg/ Sodium (Chloride) 100 mls @ 100 mls/hr IV Q12H [facility] Stop: 05/25/20 22:59 Last Admin: 05/25/20 21:51 Dose: 100 mls/hr Documented by: Albumin Human (Flexbumin 25%) 12.5 gm in 50 mls @ 100 mls/hr IV ONETIME ONE Stop: 05/25/20 11:29 Last Admin: 05/25/20 10:54 Dose: 100 mls/hr Documented by: Vancomycin HCl 1 gm/Vancomycin HCl 250 mg/ Sodium Chloride 250 mls @ 166.667 mls/hr IV ONETIME ONE Stop: 05/27/20 18:29 Last Admin: 05/27/20 17:16 Dose: 166.667 mls/hr Documented by: Levofloxacin/Dextrose 750 mg/ (Premix) 150 mls @ 100 mls/hr IV Q24H [facility] Last Admin: 05/27/20 18:26 Dose: Not Given Documented by: Magnesium Sulfate (Magnesium Sulfate In Water Premix) 2 gm in 50 mls @ 25 mls/hr IV ONETIME ONE Stop: 05/28/20 09:59 Last Admin: 05/28/20 08:47 Dose: 25 mls/hr Documented by: Iopamidol (Isovue-370 (76%)) 100 ml IVPUSH ONETIME ONE Stop: 05/20/20 20:56 Last Admin: 05/20/20 22:34 Dose: 100 ml Documented by: Levothyroxine Sodium (Synthroid) 50 mcg PO DAILY [facility] Last Admin: 05/23/20 08:16 Dose: Not Given Documented by: Magnesium Hydroxide (Milk Of Magnesia) 30 ml PO ONETIME ONE Stop: 05/28/20 15:31 Last Admin: 05/28/20 17:16 Dose: 30 ml Documented by: Magnesium Hydroxide (Milk Of Magnesia) 30 ml PO ONETIME ONE Stop: 05/29/20 09:19 Last Admin: 05/29/20 09:29 Dose: 30 ml Documented by: Magnesium Sulfate (Magnesium Sulfate In Water Premix) 2 gm IV ONETIME ONE Stop: 05/28/20 08:01 Metoprolol Succinate (Toprol Xl) 50 mg PO DAILY [facility] Last Admin: 05/28/20 08:55 Dose: 50 mg Documented by: Metoprolol Succinate (Toprol Xl) 50 mg PO BEDTIME [facility] Last Admin: 05/27/20 20:40 Dose: 50 mg Documented by: Metoprolol Succinate (Toprol Xl) 25 mg PO ONETIME ONE Stop: 05/28/20 09:24 Last Admin: 05/28/20 11:06 Dose: 25 mg Documented by: Metoprolol Tartrate (Lopressor) 5 mg IV ONETIME [facility] Stop: 05/23/20 10:30 Metoprolol Tartrate (Lopressor) 5 mg IVPUSH ONETIME ONE Stop: 05/23/20 11:36 Last Admin: 05/23/20 11:38 Dose: 5 mg Documented by: Nystatin (Nystatin Oral Syringe) 500,000 unit PO QID [facility] Stop: 05/27/20 23:00 Last Admin: 05/27/20 10:20 Dose: 500,000 unit Documented by: Ondansetron HCl (Zofran) Confirm Administered Dose 4 mg .ROUTE .STK-MED ONE Stop: 05/23/20 08:16 Last Admin: 05/23/20 09:47 Dose: Not Given Documented by: Potassium Chloride (Klor-Con M20) 40 meq PO ONETIME ONE Stop: 05/20/20 21:11 Last Admin: 05/20/20 20:45 Dose: 40 meq Documented by: Potassium Chloride (Klor-Con M20) 40 meq PO ONETIME ONE Stop: 05/22/20 09:14 Last Admin: 05/22/20 09:44 Dose: 40 meq Documented by: Sildenafil Citrate (Revatio) 20 mg PO TID [facility] Last Admin: 05/20/20 22:10 Dose: Not Given Documented by: Sodium Chloride (Saline Flush) 10 ml FLUSH ONETIME PRN PRN Reason: Keep Vein Open Trolamine Salicylate (Aspercreme 10%) 0 gm TOP Q1H PRN PRN Reason: Pain
[2020-05-29] MEDS ORDERED: Furosemide 40 MG/4 ML VIAL IVPUSH SCH (18:00)
[2020-05-30] MEDS ORDERED: Tiotropium Bromide 4 GM Inhalation Spray (2.5mcg/1 dose; 10 doses) INH SCH (09:00)
== END 2020-05-29 19:10 | disposition expired | DRG 177 ==
LOC: JD.MS 15:58 → JD.ICU 05-23 09:33
PROVIDERS: ADMIT Family Medicine; ATTEND Family Medicine
PROC: 8E0ZXY6 Isolation (ICD-10-PCS; principal; 2020-05-20)
PROC: XW033E5 Introduction of Remdesivir Anti-infective into Peripheral Vein, Percutaneous Approach, New Technology Group 5 (ICD-10-PCS; 2020-05-20)
PROC: XW13325 Transfusion of Convalescent Plasma (Nonautologous) into Peripheral Vein, Percutaneous Approach, New Technology Group 5 (ICD-10-PCS; 2020-05-21)
PROC: 5A0955A Assistance with Respiratory Ventilation, Greater than 96 Consecutive Hours, High Flow/Velocity Cannula (ICD-10-PCS; 2020-05-21)
DX: U07.1 COVID-19 (principal); J12.89 Other viral pneumonia; I71.01 Dissection of thoracic aorta; B37.0 Candidal stomatitis; J84.10 Pulmonary fibrosis, unspecified; B37.3 Candidiasis of vulva and vagina; R10.11 Right upper quadrant pain; J30.9 Allergic rhinitis, unspecified; H54.7 Unspecified visual loss; H91.90 Unspecified hearing loss, unspecified ear; E78.00 Pure hypercholesterolemia, unspecified; I11.0 Hypertensive heart disease with heart failure; Z66 Do not resuscitate; I50.9 Heart failure, unspecified; R01.1 Cardiac murmur, unspecified; K59.09 Other constipation; K21.9 Gastro-esophageal reflux disease without esophagitis; K57.90 Diverticulosis of intestine, part unspecified, without perforation or abscess without bleeding; K52.9 Noninfective gastroenteritis and colitis, unspecified; R32 Unspecified urinary incontinence; M54.9 Dorsalgia, unspecified; G89.29 Other chronic pain; M19.90 Unspecified osteoarthritis, unspecified site; M06.9 Rheumatoid arthritis, unspecified; F41.9 Anxiety disorder, unspecified; E03.9 Hypothyroidism, unspecified; I27.20 Pulmonary hypertension, unspecified; J47.9 Bronchiectasis, uncomplicated; I08.0 Rheumatic disorders of both mitral and aortic valves; F32.9 Major depressive disorder, single episode, unspecified; R00.0 Tachycardia, unspecified; E88.09 Other disorders of plasma-protein metabolism, not elsewhere classified; Z87.440 Personal history of urinary (tract) infections; Z99.81 Dependence on supplemental oxygen; Z88.5 Allergy status to narcotic agent; Z88.2 Allergy status to sulfonamides; Z88.8 Allergy status to other drugs, medicaments and biological substances; Z79.890 Hormone replacement therapy; Z79.899 Other long term (current) drug therapy; Z98.49 Cataract extraction status, unspecified eye; Z98.890 Other specified postprocedural states; Z90.49 Acquired absence of other specified parts of digestive tract; Z90.710 Acquired absence of both cervix and uterus; Z86.79 Personal history of other diseases of the circulatory system
CPT/HCPCS: 36415; 36430; 36600; 51702; 71045; 71045-26; 71275; 71275-26; 80048; 80053; 81001; 82728; 82803; 83605; 83615; 83735; 83880; 84100; 84145; 84443; 85025; 85027; 85379; 85610; 85730; 86140; 86900; 86901; 87040; 93005; 94640; 94660; 94667; 94668; 94760; 94762; 97110-GP; 97162-GP; 97530-GP; A9270-GY; J0171; J0360; J0456; J0461; J0696; J1650; J1940; J1956; J2060; J2270; J2405; J3262; J3370; J3475; J3490; J7030; J7050; J8540; P9017; P9047; Q9967